=== PATIENT | female | born 1935 | race Caucasian/White ===

== ENCOUNTER 2017-05-19 12:23 | Inpatient (IN) | payer MEDICARE, OTHER ==
[~2017-05-19] VITALS: Ht 165.1 cm; Wt 93.6 kg
[2017-05-19] MEDS ORDERED: DILTIAZEM HCL 5 MG/ML 5 ML VIAL IV STA (12:43)
[2017-05-19] MEDS ORDERED: DILTIAZEM HCL 100 ML IV ONE (12:45)
--- NOTE | 2017-05-19 13:28 | Diagnostic Imaging Report ---
PROCEDURE: CHEST SINGLE (PORTABLE) COMPARISON: None. INDICATIONS: SOB, CHEST PAINS FINDINGS: The lungs are well-inflated. No focal airspace consolidation, pleural effusion, or pneumothorax. Cardiomediastinal contour and pulmonary vasculature are within normal limits accounting for rightward patient rotation and portable, AP technique. No acute osseous abnormality. CONCLUSION: No acute cardiopulmonary abnormality. Dictated by: Clement Giles M.D. on 05/19/2017 at 13:29 Electronically approved by: Clement Giles M.D. on 05/19/2017 at 13:29
[2017-05-19] MEDS: APIXABAN 5 MG TABLET PO SCH (13:30)
[2017-05-19 13:42] LABS: BASOPHILS # (AUTO) 0.1 (0.0-0.1); BASOPHILS % 0.7 % (0.0-1.0); EOSINOPHILS # (AUTO) 0.8 (0.0-0.4); EOSINOPHILS % 4.6 % (0.0-6.0); HEMOGLOBIN 10.3 g/dL (12.0-16.0); LYMPHOCYTES # (AUTO) 4.1 (1.0-3.2); LYMPHOCYTES % 24.1 % (18.0-39.1); MEAN CORPUSCULAR HEMOGLOBIN 25.8 pg (28-32); MEAN CORPUSCULAR HGB CONC 32.2 g/dL (31-35); MEAN CORPUSCULAR VOLUME 80.2 fL (81-99); MONOCYTES # (AUTO) 1.7 (0.2-0.8); MONOCYTES % 9.8 % (4.4-11.3); NEUTROPHILS # (AUTO) 10.2 (2.1-6.9); NEUTROPHILS % 59.8 % (38.7-80.0); PLATELET COUNT 458 x10e3/uL (140-360); RED BLOOD COUNT 3.99 x10e6/uL (3.6-5.1); RED CELL DISTRIBUTION WIDTH 14.2 % (11.7-14.4)
[2017-05-19 13:53] LABS: INR 1.08; PROTHROMBIN TIME 13.2 seconds (11.9-14.5)
[2017-05-19 13:54] LABS: PARTIAL THROMBOPLASTIN TIME 25.7 seconds (23.8-35.5)
[2017-05-19] MEDS ORDERED: DILTIAZEM HCL IV SOLN 125 MG in DEXTROSE 5% 100ML 100 ML IV PRN (14:00)
[2017-05-19 14:01] LABS: ALBUMIN 3.6 g/dL (3.5-5.0); ANION GAP 16.1 mmol/L (8-16); CALCIUM 9.7 mg/dL (8.4-10.2); CREATININE, SERUM 0.91 mg/dL (0.57-1.11); MAGNESIUM 1.5 MG/DL (1.3-2.1); PHOSPHORUS 3.5 MG/DL (2.3-4.7); POTASSIUM 4.1 mmol/L (3.5-5.1)
[2017-05-19 14:06] LABS: CHOL/HDL RATIO 3.8 (3.0-3.6)
[2017-05-19] MEDS ORDERED: AMLODIPINE BESY10 MG PO (14:19)
[2017-05-19] MEDS ORDERED: NOVOLOG100 UNIT/1 SC (14:19)
[2017-05-19] MEDS ORDERED: BUPROPION HCL100 MG PO (14:19)
[2017-05-19] MEDS ORDERED: LEVOTHYROXINE75 MCG PO (14:19)
[2017-05-19] MEDS ORDERED: TERAZOSIN HCL1 MG PO (14:19)
[2017-05-19] MEDS ORDERED: HYDRALAZINE HCL25 MG PO (14:19)
[2017-05-19] MEDS ORDERED: FISH OIL 1,0001 EAC2 (14:19)
[2017-05-19] MEDS ORDERED: SERTRALINE HCL50 MG PO (14:19)
[2017-05-19] MEDS ORDERED: INDAPAMIDE1.25 MG PO (14:19)
[2017-05-19] MEDS ORDERED: ZEGERID 20 MG1 EACH (14:19)
[2017-05-19] MEDS ORDERED: INSULIN GLARGINE SC (14:19)
[2017-05-19] MEDS ORDERED: MECLIZINE HCL12.5 MG PO (14:19)
[2017-05-19] MEDS ORDERED: PRAVASTATIN SOD20 MG PO (14:19)
[2017-05-19] MEDS ORDERED: JANUVIA100 MG PO (14:19)
[2017-05-19] MEDS ORDERED: LISINOPRIL10 MG PO (14:19)
[2017-05-19 14:26] LABS: THYROID STIMULATING HORMONE 6.656 uIU/mL (0.350-4.940)
[2017-05-19] MEDS ORDERED: DILTIAZEM HCL 5 MG/ML 5 ML VIAL IV ONE (14:47)
[2017-05-19] MEDS ORDERED: AMIODARONE HCL 150MG 100 ML IV ONE (15:00)
[2017-05-19] MEDS: DILTIAZEM HCL ER 90MG CAPSULE PO SCH (15:05)
--- OUTSIDE RECORDS SUMMARY | 2017-05-19 15:07 | XMS REPORT ---
Author Author [facility] Address Unknown Phone Unavailable Care Team Providers Care Digital Media Representative Name Role Phone SOPHIA MIMS Unavailable Unavailable Problems This patient has no known problems. Allergies, Adverse Reactions, Alerts This patient has no known allergies or adverse reactions. Medications This patient has no known medications. Results Test Description Test Time Test Comments Text Results Atomic Results Result Comments CHEST SINGLE (PORTABLE) [place] [address] Patient Name: BREANNE BRIONES MR #: [id number] : 1935 Age/Sex: 82/F Req #: [id number] Adm Physician: Ordered by: SOPHIA MIMS MD Report #: [id number] Location: ER Room/Bed: Procedure: [id number] DX/CHEST SINGLE (PORTABLE) Exam Date: 05/19/17 Exam Time: 1309 REPORT STATUS: Signed PROCEDURE: CHEST SINGLE ( PORTABLE) COMPARISON: None. INDICATIONS: SOB, CHEST PAINS FINDINGS: The lungs are well-inflated. No focal airspace consolidation, pleural effusion, or pneumothorax. Cardiomediastinal contour and pulmonary vasculature are within normal limits accounting for rightward patient rotation and portable, AP technique. No acute osseous abnormality. CONCLUSION: No acute cardiopulmonary abnormality. Dictated by: David Giles M.D. on 05/19/2017 at 13:29 Electronically approved by: David Giles M.D. on 05/19/2017 at 13:29 Dictated By: DAVID GILES MD [id number] Transcribed By: DARÍO on 05/19/17 1329 COPY TO: SOPHIA MIMS MD
[2017-05-19 15:55] LABS: BILIRUBIN,URINE NEGATIVE (NEGATIVE); CLARITY,URINE CLEAR (CLEAR); COLOR,URINE YELLOW (YELLOW); KETONES,URINE NEGATIVE (NEGATIVE); LEUKOCYTE ESTERASE ,URINE TRACE (NEGATIVE); NITRITE,URINE NEGATIVE (NEGATIVE); PROTEIN,URINE DIPSTICK 1+ (NEGATIVE); URINE UROBILINOGEN 0.2 mg/dL (0.2 - 1)
[2017-05-19 16:05] LABS: WBC,URINE (MAN) 0-5 /HPF (0-5)
[2017-05-19 16:06] LABS: AMORPHOUS SEDIMENT,URINE MODERATE (FEW); BACTERIA,URINE MODERATE /HPF; EPITHELIAL CELLS,URINE MANY /LPF
[2017-05-19 16:30] VITALS: BP 186/92
[2017-05-19 16:37] VITALS: BP 186/92
[2017-05-19] MEDS ORDERED: INDAPAMIDE 1.25 MG PO SCH (17:00)
[2017-05-19] MEDS ORDERED: APIXAB 2.5 MG TABLET PO SCH (17:00)
[2017-05-19] MEDS: HYDRALAZINE HCL 25 MG TAB PO SCH (18:24)
[2017-05-19] MEDS ORDERED: AMIODARONE HCL 150 MG/100 ML BAG IV ONE (18:45)
[2017-05-19] MEDS ORDERED: AMIODARONE HCL 200 MG TAB PO ONE (18:45)
[2017-05-19] MEDS ORDERED: AMIODARONE HCL IV ONE (19:30)
[2017-05-19] MEDS ORDERED: DEXTROSE 5% IV ONE (19:30)
[2017-05-19 20:00] VITALS: BP_SYST 136; BP_SYST 165; BP_DIAS 72; BP_DIAS 91
--- NOTE | 2017-05-19 20:38 | Consultation ---
DATE OF CONSULTATION: May 19, 2017 CLINICAL HISTORY: This is an 82-year-old white woman known to me from previous evaluation kindly referred by Dr. Owen Salazar for evaluation of new onset of rapid atrial fibrillation. This patient is known to have diabetes, hypertension, hypothyroidism on thyroid replacement, chronic anemia with iron deficiency and iron malabsorption receiving intravenous iron for the past 7-[address] Collazo, history of hiatal hernia. On Tuesday, she went to Dr. Collazo's office and received intravenous iron. She had no side effects. However, on Tuesday morning she awoke with palpitations. She went to see Dr. Salazar today and was found to have rapid atrial fibrillation and was referred to the emergency room for hospitalization. PAST MEDICAL HISTORY: Also remarkable for neuropathy, depression, urinary tract infection. PAST SURGICAL HISTORY: Hysterectomy, appendectomy, tonsillectomy, tubal ligation and left arm surgery. Last year she apparently had a cardiac catheterization that was negative. She also had a cardiac catheterization in 2002 that was negative. FAMILY HISTORY: Father had a stroke and hypoglycemia. The patient had CVA at age 87. PERSONAL/SOCIAL HISTORY: Denies smoking or drinking. ALLERGIES: CODEINE. REVIEW OF SYSTEMS: Noncontributory. PHYSICAL EXAMINATION GENERAL: She is somewhat obese, alert, coherent. She appears to be comfortable. CARDIAC: Jugular veins were not distended. S1 and S2 were irregularly irregular, somewhat rapid. LUNGS: Clear. ABDOMEN: Soft. Bowel sounds are present. EXTREMITIES: No cyanosis, clubbing or edema. IMPRESSION 1. New onset of atrial fibrillation, probably started 36 hours ago with left atrium being somewhat enlarged in the range of 6.4 cm with no clear cause of the atrial fibrillation. 2. History of hypothyroidism on thyroid replacement. 3. Hypertension, sometimes not under good control. 4. Enlarged left atrium. 5. Diabetes. 6. Hyperlipidemia. 7. History of depression. 8. Peripheral vascular disease. 9. Hiatal hernia. 10. Chronic anemia with history of malabsorption and iron deficiency on intravenous iron for 6 years. RECOMMENDATIONS: Deb zamora, opinion with Dr. Collazo. If there is no evidence of bleeding, consider anticoagulation. Trial of amiodarone. If this does not work, consider electrical cardioversion. Risks, benefits and alternatives of these treatments were explained and understood. The patient and family agreed to proceed. Job#: [id number] cc:OWEN SALAZAR MD
--- NOTE | 2017-05-19 20:41 | Cardiology Report ---
DATE OF STUDY: May 19, 2017 ECHOCARDIOGRAM M-MODE: Dilated left atrium. Left ventricular hypertrophy. Normal contractility. Sclerosis of the mitral valve annulus. Normal aortic valve. No pericardial effusion. SECTOR SCAN: Dilated left atrium measuring approximately 6 x 4 cm. Left ventricular hypertrophy. Normal left ventricular contractility. Ejection fraction is approximately 55%. Mitral valve annulus is sclerotic. Normal aortic valve. Normal tricuspid valve. No pericardial effusion. CARDIAC DOPPLER STUDY WITH COLOR: 1+ mitral regurgitation. Trace tricuspid regurgitation. CONCLUSIONS: 1. Left atrium and moderately dilated measuring approximately 6 x 4 cm. 2. Left ventricular hypertrophy with ejection fraction of approximately 55%. 3. Trace mitral regurgitation. 4. Sclerosis of mitral valve annulus. 5. Trace tricuspid regurgitation. Job#: [id number] cc:QIAN SALAZAR MD
[2017-05-19] MEDS: SODIUM CHLORIDE 0.9% 1000ML 1,000 ML IV SCH (20:56)
[2017-05-19] MEDS: PRAVASTATIN 20 MG TAB PO SCH (22:20)
[2017-05-20] VITALS (14 sets, daily range): BP systolic 82–161; BP diastolic 42–89
[2017-05-20] MEDS ORDERED: ZOLPIDEM TARTRATE 5 MG TAB PO PRN (00:15)
[2017-05-20] MEDS: LEVOTHYROXINE SODIUM 75 MCG TAB PO SCH (06:00)
[2017-05-20] MEDS: LEVOTHYROXINE SODIUM 100 MCG TAB PO SCH (06:00)
[2017-05-20 06:20] LABS: BASOPHILS # (AUTO) 0.1 (0.0-0.1); BASOPHILS % 0.7 % (0.0-1.0); EOSINOPHILS # (AUTO) 0.7 (0.0-0.4); EOSINOPHILS % 4.8 % (0.0-6.0); HEMATOCRIT 31.6 % (34.2-44.1); HEMOGLOBIN 9.9 g/dL (12.0-16.0); LYMPHOCYTES # (AUTO) 3.4 (1.0-3.2); LYMPHOCYTES % 25.4 % (18.0-39.1); MEAN CORPUSCULAR HEMOGLOBIN 25.5 pg (28-32); MEAN CORPUSCULAR HGB CONC 31.3 g/dL (31-35); MEAN CORPUSCULAR VOLUME 81.4 fL (81-99); MONOCYTES # (AUTO) 1.5 (0.2-0.8); NEUTROPHILS # (AUTO) 7.7 (2.1-6.9); NEUTROPHILS % 57.1 % (38.7-80.0); PLATELET COUNT 417 x10e3/uL (140-360); RED BLOOD COUNT 3.88 x10e6/uL (3.6-5.1); RED CELL DISTRIBUTION WIDTH 14.2 % (11.7-14.4)
[2017-05-20 06:43] LABS: ANION GAP 11.1 mmol/L (8-16); BLOOD UREA NITROGEN 26 mg/dL (7-26); BUN/CREATININE RATIO 31 (6-25); CALCIUM 9.1 mg/dL (8.4-10.2); CARBON DIOXIDE 26 mmol/L (22-29); CHLORIDE 104 mmol/L (98-107); CREATININE, SERUM 0.85 mg/dL (0.57-1.11); EST GLOMERULAR FILTRATION RATE > 60 ML/MIN (60-); GLUCOSE 131 mg/dL (74-118); POTASSIUM 4.1 mmol/L (3.5-5.1); SODIUM 137 mmol/L (136-145)
[2017-05-20] MEDS: PANTOPRAZOLE SOD 40 MG TABEC PO SCH (07:30)
[2017-05-20] MEDS: BUPROPION HCL 100 MG TAB PO SCH ×2 (07:31→16:59)
[2017-05-20 07:42] LABS: INR 1.17; PARTIAL THROMBOPLASTIN TIME 28.6 seconds (23.8-35.5)
[2017-05-20 07:54] LABS: MAGNESIUM 1.3 MG/DL (1.3-2.1)
[2017-05-20 08:10] LABS: THYROID STIMULATING HORMONE 8.279 uIU/mL (0.350-4.940)
[2017-05-20] MEDS: TERAZOSIN HCL 1 MG CAP PO SCH (08:58)
[2017-05-20] MEDS: HYDRALAZINE HCL 25 MG TAB PO SCH ×2 (08:58→15:01)
[2017-05-20] MEDS: DILTIAZEM HCL ER 90MG CAPSULE PO SCH ×2 (08:58→16:59)
[2017-05-20] MEDS: LISINOPRIL 10 MG TAB PO SCH (08:58)
[2017-05-20] MEDS: SITAGLIPTIN 100 MG TAB PO SCH (08:59)
[2017-05-20] MEDS: SERTRALINE HCL 50 MG TAB PO SCH (08:59)
[2017-05-20] MEDS ORDERED: AMLODIPINE BESYLATE 10 MG TAB PO SCH (09:00)
[2017-05-20] MEDS ORDERED: INDAPAMIDE 2.5 MG TAB PO SCH (09:00)
[2017-05-20] MEDS ORDERED: INSULIN DETEMIR 100 UNIT/ML PEN SQ SCH (09:00)
[2017-05-20] MEDS ORDERED: INSULIN GLARGINE SC SCH (09:00)
[2017-05-20] MEDS ORDERED: BENZOCAINE 20% SPR 60 ML CAN ONE (09:54)
[2017-05-20] MEDS ORDERED: SODIUM CHLORIDE 0.9% 1000ML 1,000 ML ONE (09:56)
--- NOTE | 2017-05-20 14:19 | Diagnostic Imaging Report ---
PROCEDURE:X-RAY LEFT SHOULDER, COMPLETE COMPARISON:Patients [facility], DX, CHEST SINGLE (PORTABLE), 05/19/2017, 13:18. INDICATIONS:LEFT SHOULDER PAIN FINDINGS: Normal mineralization. No acute displaced fracture or dislocation. No lytic or blastic lesion. Ill-defined 1.0 cm triangular-shaped density projecting medial to the glenoid in the scapula. Minimal degenerative changes in the a.c. joint. No a.c. separation. Glenohumeral joint is grossly unremarkable. Soft tissues are unremarkable. CONCLUSION: No acute, displaced fracture or dislocation. Ill-defined triangular-shaped density projected medial to the glenoid over the scapula may be external to the patient or represent ligamentous calcification. MRI of the shoulder may be obtained for further evaluation, if clinically indicated. Ciaran Brown M.D. Dictated by: Ciaran Brown M.D. on 05/20/2017 at 14:19 Electronically approved by: Ciaran Brown M.D. on 05/20/2017 at 14:19
[2017-05-20] MEDS: AMIODARONE HCL 200 MG TAB PO SCH ×2 (14:25→21:13)
[2017-05-20] MEDS: SODIUM CHLORIDE 0.9% 1000ML 1,000 ML IV SCH (15:01)
--- NOTE | 2017-05-20 16:05 | Operative Report ---
DATE OF PROCEDURE: TRANSESOPHAGEAL ECHOCARDIOGRAM FOLLOWED BY ELECTRICAL CARDIOVERSION ATTENDING PHYSICIAN: Owen Salazar M.D. CLINICAL HISTORY AND INDICATION: This is an 82-year-old white woman who presented within 48 hours of complaints of palpitations. EKG showed new atrial fibrillation with rapid ventricular rate. The rate was decreased by intravenous Cardizem and the patient was given Eliquis in the emergency room. After overnight failure to convert with intravenous amiodarone, we decided to proceed with electrical cardioversion after transesophageal echocardiogram. Risks, benefits, and alternatives being explained and understood. PROCEDURE: The patient was brought to the endoscopy suite in a fasting and sedated state. She was unable to initially swallow the transducer. However, after we sedated her we were able to pass the transducer without much difficulties. No definite left appendageal thrombus was found nor was there any thrombus found elsewhere. She did have a small PFO with [id number] shunt. There was 1+ mitral regurgitation and dilated left atrium. The scope was then removed. The patient was then converted using 200 joules synchronized cardioversion. She remained in sinus rhythm and was taken to a room. CONCLUSIONS: 1. Successful electrical synchronized cardioversion converting to sinus rhythm with 200 joules. 2. Dilated left atrium without any thrombus including the left atrial appendage. 3. Small PFO with [id number] shunt. 4. Mild mitral regurgitation. Job#: [id number] cc:OWEN SALAZAR MD
[2017-05-20] MEDS ORDERED: LIDOCAINE HCL 2% LOCAL INJ 5 ML SDV VIAL INJ ONE (17:45)
[2017-05-20] MEDS ORDERED: PROPOFOL IV EMULSION 10 MG/ML 20 ML VIAL ONE (17:45)
[2017-05-20] MEDS ORDERED: TRAMADOL HCL 50 MG TAB PO PRN (19:15)
[2017-05-20] MEDS ORDERED: ACETAMINOPHEN 325 MG TAB PO PRN (19:45)
[2017-05-20] MEDS: PRAVASTATIN 20 MG TAB PO SCH (21:12)
[2017-05-20] MEDS: INSULIN DETEMIR 100 UNIT/ML PEN SQ SCH (21:13)
[2017-05-21 00:23] VITALS: BP 158/69
[2017-05-21 04:41] VITALS: BP 165/68
[2017-05-21] MEDS: LEVOTHYROXINE SODIUM 75 MCG TAB PO SCH (06:30)
[2017-05-21] MEDS: LEVOTHYROXINE SODIUM 100 MCG TAB PO SCH (06:30)
[2017-05-21] MEDS: AMIODARONE HCL 200 MG TAB PO SCH ×2 (06:30→14:50)
[2017-05-21] MEDS: PANTOPRAZOLE SOD 40 MG TABEC PO SCH (08:00)
[2017-05-21 08:13] VITALS: BP 169/71
[2017-05-21] MEDS: HYDRALAZINE HCL 25 MG TAB PO SCH (08:16)
[2017-05-21] MEDS: INSULIN DETEMIR 100 UNIT/ML PEN SQ SCH (08:17)
[2017-05-21] MEDS: DILTIAZEM HCL ER 90MG CAPSULE PO SCH (08:17)
[2017-05-21] MEDS: TERAZOSIN HCL 1 MG CAP PO SCH (08:17)
[2017-05-21] MEDS: SITAGLIPTIN 100 MG TAB PO SCH (08:17)
[2017-05-21] MEDS: APIXABAN 5 MG TABLET PO SCH (08:17)
[2017-05-21] MEDS: SERTRALINE HCL 50 MG TAB PO SCH (08:17)
[2017-05-21] MEDS: LISINOPRIL 10 MG TAB PO SCH (08:17)
[2017-05-21] MEDS: BUPROPION HCL 100 MG TAB PO SCH (08:17)
[2017-05-21] MEDS: SODIUM CHLORIDE 0.9% 1000ML 1,000 ML IV SCH (08:52)
[2017-05-21 09:15] VITALS: BP 169/71
[2017-05-21 12:00] VITALS: BP 153/69
== END 2017-05-21 15:49 | disposition home or self-care (01) | DRG 309 ==
LOC: ER 12:31 → ERHOLD 15:04 → EDBEDREQTM 15:06 → MED/SURG3 15:56 → IMCU 20:13
PROVIDERS: ADMIT Internal Medicine; ATTEND Internal Medicine
PROC: 5A2204Z Restoration of Cardiac Rhythm, Single (ICD-10-PCS; principal; 2017-05-20)
DX: I48.91 Unspecified atrial fibrillation (principal); Q21.1 Atrial septal defect; D64.9 Anemia, unspecified; E11.9 Type 2 diabetes mellitus without complications; E03.9 Hypothyroidism, unspecified; I10 Essential (primary) hypertension; Z79.4 Long term (current) use of insulin; T45.4X1A Poisoning by iron and its compounds, accidental (unintentional), initial encounter; I73.9 Peripheral vascular disease, unspecified
CPT/HCPCS: 36415; 71045; 80048; 80053; 80061; 81001; 82948; 83540; 83735; 83880; 84100; 84436; 84443; 84466; 84479; 84484; 85025; 85045; 85610; 85730; 87040; 93005; 93306; 93320; 93325; 96372; 99284; J2001; J7030

== ENCOUNTER 2017-08-09 09:10 | Inpatient (IN) | payer MEDICARE, OTHER ==
[~2017-08-09] VITALS: Ht 165.1 cm; Wt 88.0 kg
[~2017-08-09 09:10] MED LIST: AMLODIPINE BESY10 MG PO; BUPROPION HCL100 MG PO; FISH OIL 1,0001 EAC2; HYDRALAZINE HCL25 MG PO; INDAPAMIDE1.25 MG PO; INSULIN GLARGINE SC; JANUVIA100 MG PO; LEVOTHYROXINE75 MCG PO; LISINOPRIL10 MG PO; MECLIZINE HCL12.5 MG PO; NOVOLOG100 UNIT/1 SC; PRAVASTATIN SOD20 MG PO; SERTRALINE HCL50 MG PO; TERAZOSIN HCL1 MG PO; ZEGERID 20 MG1 EACH
[2017-08-09] MEDS ORDERED: ASPIRIN 81 MG CHEW TAB PO STA (09:32)
[2017-08-09] MEDS ORDERED: ASPIRIN 81 MG CHEW TAB PO ONE (09:45)
--- NOTE | 2017-08-09 10:21 | Diagnostic Imaging Report ---
PROCEDURE: CHEST SINGLE (PORTABLE) COMPARISON: 05/19/2017. INDICATIONS: DEHYDRATION, NAUSEA FINDINGS: The lungs are well-inflated. No focal airspace consolidation, pleural effusion, or pneumothorax. Cardiomediastinal contour is notable for tortuosity of the thoracic aorta with associated atherosclerotic calcification. Heart size is normal for portable, AP technique. No acute osseous abnormality. CONCLUSION: No acute cardiopulmonary abnormality. Dictated by: Clement Giles M.D. on 08/09/2017 at 10:25 Electronically approved by: Clement Giles M.D. on 08/09/2017 at 10:25
[2017-08-09 10:58] LABS: BASOPHILS # (AUTO) 0.1 (0.0-0.1); BASOPHILS % 0.6 % (0.0-1.0); EOSINOPHILS # (AUTO) 0.3 (0.0-0.4); EOSINOPHILS % 1.6 % (0.0-6.0); HEMATOCRIT 41.6 % (34.2-44.1); HEMOGLOBIN 13.1 g/dL (12.0-16.0); LYMPHOCYTES # (AUTO) 1.8 (1.0-3.2); LYMPHOCYTES % 10.6 % (18.0-39.1); MEAN CORPUSCULAR HEMOGLOBIN 25.4 pg (28-32); MEAN CORPUSCULAR HGB CONC 31.5 g/dL (31-35); MEAN CORPUSCULAR VOLUME 80.8 fL (81-99); MONOCYTES # (AUTO) 1.6 (0.2-0.8); MONOCYTES % 9.5 % (4.4-11.3); NEUTROPHILS # (AUTO) 13.3 (2.1-6.9); NEUTROPHILS % 76.9 % (38.7-80.0); PLATELET COUNT 439 x10e3/uL (140-360); RED BLOOD COUNT 5.15 x10e6/uL (3.6-5.1); RED CELL DISTRIBUTION WIDTH 16.1 % (11.7-14.4)
[2017-08-09 11:21] LABS: ALBUMIN 3.2 g/dL (3.5-5.0); ALBUMIN/GLOBULIN RATIO 0.8 (0.8-2.0); ANION GAP 16.1 mmol/L (8-16); CALCIUM 9.7 mg/dL (8.4-10.2); CREATININE, SERUM 1.16 mg/dL (0.57-1.11); POTASSIUM 4.1 mmol/L (3.5-5.1)
[2017-08-09 11:27] LABS: CREATINE KINASE MB 1.8 ng/mL (0-5.0)
[2017-08-09 12:00] LABS: INR 1.55; PARTIAL THROMBOPLASTIN TIME 33.8 seconds (23.8-35.5); PROTHROMBIN TIME 17.5 seconds (11.9-14.5)
[2017-08-09 12:11] LABS: BILIRUBIN,URINE 1+ (NEGATIVE); CLARITY,URINE SL CLOUDY (CLEAR); COLOR,URINE YELLOW (YELLOW); KETONES,URINE NEGATIVE (NEGATIVE); LEUKOCYTE ESTERASE ,URINE NEGATIVE (NEGATIVE); NITRITE,URINE NEGATIVE (NEGATIVE); PROTEIN,URINE DIPSTICK 1+ (NEGATIVE); URINE UROBILINOGEN 1 mg/dL (0.2 - 1)
[2017-08-09 12:14] LABS: WBC,URINE (MAN) 0-5 /HPF (0-5)
[2017-08-09 12:15] LABS: EPITHELIAL CELLS,URINE FEW /LPF; MUCUS,URINE RARE (RARE)
--- NOTE | 2017-08-09 12:37 | Diagnostic Imaging Report ---
PROCEDURE: CT ABDOMEN AND PELVIS WITHOUT CONTRAST TECHNIQUE: The abdomen and pelvis were scanned utilizing a multidetector helical scanner from the diaphragm to the lesser trochanter after the oral administration of water. No IV contrast was administered per physician's request. Coronal and sagittal multiplanar reformations were obtained. COMPARISON: None. INDICATIONS: LEFT SIDE ABDOMINAL PAIN, FINDINGS: ABSENCE OF INTRAVENOUS CONTRAST DECREASES SENSITIVITY FOR DETECTION OF FOCAL LESIONS AND VASCULAR PATHOLOGY. LOWER THORAX: Multiple bilateral noncalcified pulmonary nodules ranging in size from 2 mm-7 mm are noted in the lung bases. No consolidation or masses. Atherosclerotic calcification of the coronary arteries, mitral annulus and thoracic aorta. Calcified bilateral hilar lymph nodes. Calcified granulomas along the bronchovascular bundle of the posteromedial right lower lobe (series 3, image 6). HEPATOBILIARY: Normal hepatic size and contour. Multiple calcified granulomas. No other focal lesions. No biliary ductal dilation. Cholecystectomy clips. SPLEEN: No splenomegaly. Innumerable calcified granulomas. PANCREAS: No focal masses or ductal dilatation. ADRENALS: 1.1 x 1.0 x 1.1 cm hypodense nodule in the left adrenal gland (series 3, image 50, and sagittal image 83), which measures less than 10 HU. Right adrenal gland is unremarkable. KIDNEYS/URETERS: No renal or ureteral calculi, hydronephrosis, or obstruction. No renal contour abnormalities. Mild nonspecific bilateral perinephric stranding. PELVIC ORGANS/BLADDER: Bladder is decompressed and grossly unremarkable. Uterus is absent. No adnexal masses. PERITONEUM / RETROPERITONEUM: No free air or fluid. 3.8 x 3.3 x 3.5 cm well-circumscribed fluid density structure with associated dystrophic calcification in its superior aspect (series 3, image 129 and sagittal image 48), located anterior to the right psoas muscle. LYMPH NODES: No lymphadenopathy. VESSELS: Atherosclerotic calcification of the abdominal aorta and iliac vessels. Multiple phleboliths are noted along the right gonadal vein (coronal image 57).. GI TRACT: No bowel dilation or evidence of obstruction. Scattered diverticula in the distal descending and sigmoid colon, without diverticulitis. No pericolonic inflammatory changes. BONES AND SOFT TISSUES: No aggressive lytic lesions. Degenerative disc changes in the lumbosacral spine, predominantly L5-S1 and L4-L5. Facet hypertrophy L4-L5 and L5-S1.. 4.2 x 7.9 x 6.0 cm and 2.3 x 1.6 x 2.8 cm fat containing supraumbilical anterior midline abdominal wall hernias (series 3, image 70 and 122, and sagittal image 74 and 80, respectively). IMPRESSION: 1. No acute abdominopelvic abnormalities. No renal, ureteral, or bladder calculi, no hydronephrosis or obstruction. 2. Prior granulomatous disease, manifested by calcified bilateral hilar lymph nodes, and calcified pulmonary, hepatic and splenic granulomas. 3. Multiple bilateral noncalcified pulmonary nodules. These may represent noncalcified granulomas, given the extent of sequela of prior granulomatous disease. No evidence of intra-abdominal solid organ or bowel masses, within the limitations of this noncontrast exam. 4. 1.1 cm benign lipid rich left adrenal adenoma. No further diagnostic or followup imaging is indicated. 5. Distal descending and sigmoid colon diverticulosis, without diverticulitis. 6. 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 Ciaran Brown M.D. Dictated by: Ciaran Brown M.D. on 08/09/2017 at 12:40 Electronically approved by: Ciaran Brown M.D. on 08/09/2017 at 12:40
[2017-08-09 14:16] LABS: LYMPHOCYTES % (MANUAL) 18 % (19-48); MONOCYTES % (MANUAL) 8 % (3.4-9.0); NEUTROPHILS % (MANUAL) 74 % (40-74)
[2017-08-09 14:17] LABS: PLATELET ESTIMATE ADEQUATE
[2017-08-09 14:18] LABS: ANISOCYTOSIS SLIGHT; HYPOCHROMASIA SLIGHT; PLATELET MORPHOLOGY COMMENT NORMAL; RBC MORPHOLOGY COMMENT NORMAL
[2017-08-09] MEDS ORDERED: AMIODARONE HCL200 MG PO (15:12)
[2017-08-09] MEDS ORDERED: DIGOXIN250 MCG PO (15:12)
[2017-08-09 15:30] VITALS: BP 166/75
[2017-08-09] MEDS: SODIUM CHLORIDE 0.9% 1000ML 1,000 ML IV SCH (15:30)
[2017-08-09 15:38] VITALS: BP 166/75
[2017-08-09 16:00] VITALS: BP 166/75
[2017-08-09] MEDS ORDERED: OMEPRAZOLE40 MG (16:02)
[2017-08-09] MEDS ORDERED: VITAMIN D3400 UNIT (16:02)
[2017-08-09] MEDS ORDERED: METOPROLOL SUCC50 MG PO (16:02)
[2017-08-09] MEDS: METRONIDAZOLE 500MG/NS 100ML 100 ML IV SCH ×2 (18:00→23:48)
[2017-08-09] MEDS ORDERED: METRONIDAZOLE 500MG/NS 100ML IV SCH (18:00)
[2017-08-09 20:00] VITALS: BP 166/75
[2017-08-09 20:25] VITALS: BP 177/66
[2017-08-09] MEDS: ACETAMINOPHEN 325 MG TAB PO PRN (21:52)
[2017-08-09] MEDS: METOPROLOL SUCCINATE 50 MG TAB XL PO SCH (21:52)
[2017-08-10] VITALS (7 sets, daily range): BP systolic 157–196; BP diastolic 47–95
[2017-08-10] MEDS: SODIUM CHLORIDE 0.9% 1000ML 1,000 ML IV SCH ×2 (03:17→17:30)
[2017-08-10] MEDS: METRONIDAZOLE 500MG/NS 100ML 100 ML IV SCH ×4 (05:27→23:33)
[2017-08-10 06:33] LABS: BASOPHILS # (AUTO) 0.1 (0.0-0.1); BASOPHILS % 0.6 % (0.0-1.0); EOSINOPHILS # (AUTO) 0.2 (0.0-0.4); EOSINOPHILS % 1.5 % (0.0-6.0); HEMATOCRIT 37.9 % (34.2-44.1); HEMOGLOBIN 11.8 g/dL (12.0-16.0); LYMPHOCYTES # (AUTO) 1.9 (1.0-3.2); LYMPHOCYTES % 14.8 % (18.0-39.1); MEAN CORPUSCULAR HEMOGLOBIN 25.4 pg (28-32); MEAN CORPUSCULAR HGB CONC 31.1 g/dL (31-35); MEAN CORPUSCULAR VOLUME 81.5 fL (81-99); MONOCYTES # (AUTO) 1.8 (0.2-0.8); NEUTROPHILS # (AUTO) 8.7 (2.1-6.9); NEUTROPHILS % 68.5 % (38.7-80.0); PLATELET COUNT 337 x10e3/uL (140-360); RED BLOOD COUNT 4.65 x10e6/uL (3.6-5.1); RED CELL DISTRIBUTION WIDTH 16.4 % (11.7-14.4)
[2017-08-10 06:53] LABS: ALBUMIN 2.7 g/dL (3.5-5.0); ALBUMIN/GLOBULIN RATIO 0.7 (0.8-2.0); ANION GAP 15.9 mmol/L (8-16); CALCIUM 8.9 mg/dL (8.4-10.2); CREATININE, SERUM 1.16 mg/dL (0.57-1.11); POTASSIUM 3.9 mmol/L (3.5-5.1)
[2017-08-10 08:19] LABS: BAND NEUTROPHILS % (MANUAL) 1 %; EOSINOPHILS % (MANUAL) 1 % (0-7); LYMPHOCYTES % (MANUAL) 12 % (19-48); MONOCYTES % (MANUAL) 14 % (3.4-9.0); NEUTROPHILS % (MANUAL) 67 % (40-74)
[2017-08-10 08:20] LABS: ANISOCYTOSIS SLIGHT; HYPOCHROMASIA SLIGHT; PLATELET ESTIMATE ADEQUATE; PLATELET MORPHOLOGY COMMENT NORMAL; POIKILOCYTOSIS SLIGHT; RBC MORPHOLOGY COMMENT NORMAL
[2017-08-10] MEDS: METOPROLOL SUCCINATE 50 MG TAB XL PO SCH ×2 (08:58→17:32)
[2017-08-10] MEDS ORDERED: PROMETHAZINE 12.5MG/ NACL 0.9% 12.5 MG/50 ML BAG IV PRN (11:15)
[2017-08-10] MEDS: APIXABAN 5 MG TABLET PO SCH (17:33)
[2017-08-10] MEDS: ACETAMINOPHEN 325 MG TAB PO PRN (22:04)
[2017-08-11] VITALS (9 sets, daily range): BP systolic 157–181; BP diastolic 64–80
[2017-08-11] MEDS: SODIUM CHLORIDE 0.9% 1000ML 1,000 ML IV SCH ×2 (06:03→20:31)
[2017-08-11] MEDS: LEVOTHYROXINE SODIUM 100 MCG TAB PO SCH (06:03)
[2017-08-11] MEDS: METRONIDAZOLE 500MG/NS 100ML 100 ML IV SCH ×3 (06:03→18:01)
[2017-08-11] MEDS: LEVOTHYROXINE SODIUM 75 MCG TAB PO SCH (06:03)
[2017-08-11 06:41] LABS: BASOPHILS # (AUTO) 0.1 (0.0-0.1); BASOPHILS % 0.5 % (0.0-1.0); EOSINOPHILS # (AUTO) 0.4 (0.0-0.4); EOSINOPHILS % 2.7 % (0.0-6.0); HEMATOCRIT 37.9 % (34.2-44.1); HEMOGLOBIN 11.7 g/dL (12.0-16.0); LYMPHOCYTES # (AUTO) 2.1 (1.0-3.2); MEAN CORPUSCULAR HEMOGLOBIN 25.3 pg (28-32); MEAN CORPUSCULAR HGB CONC 30.9 g/dL (31-35); MONOCYTES # (AUTO) 1.6 (0.2-0.8); MONOCYTES % 11.4 % (4.4-11.3); NEUTROPHILS # (AUTO) 9.6 (2.1-6.9); NEUTROPHILS % 69.5 % (38.7-80.0); PLATELET COUNT 369 x10e3/uL (140-360); RED BLOOD COUNT 4.62 x10e6/uL (3.6-5.1); RED CELL DISTRIBUTION WIDTH 16.5 % (11.7-14.4)
[2017-08-11 06:54] LABS: ANION GAP 14.7 mmol/L (8-16); BLOOD UREA NITROGEN 15 mg/dL (7-26); BUN/CREATININE RATIO 17 (6-25); CALCIUM 9.2 mg/dL (8.4-10.2); CARBON DIOXIDE 28 mmol/L (22-29); CHLORIDE 100 mmol/L (98-107); CREATININE, SERUM 0.88 mg/dL (0.57-1.11); EST GLOMERULAR FILTRATION RATE > 60 ML/MIN (60-); GLUCOSE 113 mg/dL (74-118); POTASSIUM 3.7 mmol/L (3.5-5.1); SODIUM 139 mmol/L (136-145)
[2017-08-11 07:52] LABS: EOSINOPHILS % (MANUAL) 3 % (0-7); LYMPHOCYTES % (MANUAL) 16 % (19-48); MONOCYTES % (MANUAL) 5 % (3.4-9.0); MYELOCYTES % (MANUAL) 1 % (0-0); NEUTROPHILS % (MANUAL) 75 % (40-74); PLATELET ESTIMATE ADEQUATE; PLATELET MORPHOLOGY COMMENT NORMAL; RBC MORPHOLOGY COMMENT NORMAL
[2017-08-11] MEDS: PANTOPRAZOLE SOD 40 MG TABEC PO SCH (07:55)
[2017-08-11] MEDS: SITAGLIPTIN 100 MG TAB PO SCH (08:26)
[2017-08-11] MEDS: INSULIN DETEMIR 100 UNIT/ML PEN SQ SCH (08:26)
[2017-08-11] MEDS: APIXABAN 5 MG TABLET PO SCH ×2 (08:26→16:50)
[2017-08-11] MEDS: METOPROLOL SUCCINATE 50 MG TAB XL PO SCH ×2 (08:26→16:51)
[2017-08-11] MEDS: SERTRALINE HCL 50 MG TAB PO SCH (08:26)
[2017-08-11] MEDS ORDERED: LEVOTHYROXINE SODIUM 75 MCG TAB PO SCH (09:00)
[2017-08-11] MEDS ORDERED: DIGOXIN 0.25 MG TAB PO SCH ×2 (09:00)
[2017-08-11] MEDS ORDERED: AMIODARONE HCL 200 MG TAB PO SCH (09:00)
[2017-08-11] MEDS: ACETAMINOPHEN 325 MG TAB PO PRN ×2 (09:22→21:54)
[2017-08-12] VITALS (10 sets, daily range): BP systolic 128–195; BP diastolic 56–92
[2017-08-12] MEDS: METRONIDAZOLE 500MG/NS 100ML 100 ML IV SCH ×2 (00:17→05:26)
[2017-08-12] MEDS: LEVOTHYROXINE SODIUM 100 MCG TAB PO SCH (05:26)
[2017-08-12] MEDS: LEVOTHYROXINE SODIUM 75 MCG TAB PO SCH (05:26)
[2017-08-12 06:30] LABS: BASOPHILS # (AUTO) 0.1 (0.0-0.1); BASOPHILS % 0.5 % (0.0-1.0); EOSINOPHILS # (AUTO) 0.5 (0.0-0.4); EOSINOPHILS % 3.5 % (0.0-6.0); HEMATOCRIT 35.8 % (34.2-44.1); MEAN CORPUSCULAR HEMOGLOBIN 25.2 pg (28-32); MEAN CORPUSCULAR HGB CONC 30.7 g/dL (31-35); MEAN CORPUSCULAR VOLUME 81.9 fL (81-99); MONOCYTES # (AUTO) 1.5 (0.2-0.8); NEUTROPHILS # (AUTO) 8.6 (2.1-6.9); NEUTROPHILS % 67.5 % (38.7-80.0); PLATELET COUNT 348 x10e3/uL (140-360); RED BLOOD COUNT 4.37 x10e6/uL (3.6-5.1); RED CELL DISTRIBUTION WIDTH 16.4 % (11.7-14.4)
[2017-08-12 06:50] LABS: ANION GAP 12.5 mmol/L (8-16); BLOOD UREA NITROGEN 10 mg/dL (7-26); BUN/CREATININE RATIO 13 (6-25); CARBON DIOXIDE 27 mmol/L (22-29); CHLORIDE 102 mmol/L (98-107); CREATININE, SERUM 0.79 mg/dL (0.57-1.11); EST GLOMERULAR FILTRATION RATE > 60 ML/MIN (60-); GLUCOSE 103 mg/dL (74-118); POTASSIUM 3.5 mmol/L (3.5-5.1); SODIUM 138 mmol/L (136-145)
--- NOTE | 2017-08-12 06:50 | Diagnostic Imaging Report ---
FOOT LEFT COMPLETE HISTORY: Left foot pain COMPARISON: None FINDINGS: Bones: No displaced fracture. All deformity of the distal fifth proximal phalanx Osseous alignment is within normal limits. Posterior calcaneal enthesophyte. Joints: The joint spaces are well-maintained. Soft tissues: The soft tissues appear unremarkable. IMPRESSION: No acute radiographic abnormality. Signed by: Dr. Maury Sands M.D. on 08/12/2017 6:46 AM
[2017-08-12 08:15] LABS: EOSINOPHILS % (MANUAL) 1 % (0-7); LYMPHOCYTES % (MANUAL) 13 % (19-48); MONOCYTES % (MANUAL) 9 % (3.4-9.0); NEUTROPHILS % (MANUAL) 74 % (40-74)
[2017-08-12 08:16] LABS: PLATELET ESTIMATE ADEQUATE; PLATELET MORPHOLOGY COMMENT NORMAL; RBC MORPHOLOGY COMMENT NORMAL
[2017-08-12] MEDS ORDERED: LISINOPRIL 10 MG TAB PO SCH (09:00)
[2017-08-12] MEDS: SITAGLIPTIN 100 MG TAB PO SCH (09:02)
[2017-08-12] MEDS: APIXABAN 5 MG TABLET PO SCH ×2 (09:02→16:47)
[2017-08-12] MEDS: PANTOPRAZOLE SOD 40 MG TABEC PO SCH (09:02)
[2017-08-12] MEDS: SODIUM CHLORIDE 0.9% 1000ML 1,000 ML IV SCH ×2 (09:03→22:08)
[2017-08-12] MEDS: SERTRALINE HCL 50 MG TAB PO SCH (09:03)
[2017-08-12] MEDS: METOPROLOL SUCCINATE 50 MG TAB XL PO SCH ×2 (09:03→16:49)
[2017-08-12] MEDS: INSULIN DETEMIR 100 UNIT/ML PEN SQ SCH (09:40)
[2017-08-12] MEDS ORDERED: METOCLOPRAMIDE HCL 10 MG/2ML VIAL IV PRN (11:45)
[2017-08-12] MEDS: LISINOPRIL 10 MG TAB PO SCH (16:47)
[2017-08-12] MEDS: ACETAMINOPHEN 325 MG TAB PO PRN (17:28)
--- NOTE | 2017-08-12 18:19 | Consultation ---
DATE OF CONSULTATION: August 12, 2017 This is an 82-year-old woman who presented to the hospital because of complaining of nausea and unable to eat. She said that she has been having intermittent diarrhea for about 6-8 weeks. She was diagnosed with atrial fibrillation and was given amiodarone, digoxin, metoprolol and Eliquis. Her workup revealed that she had a CAT scan of the abdomen and pelvis on admission which showed no acute abdominal type abnormalities and possible left adrenal adenoma, diverticulosis without diverticulitis. She also had stool study that was negative and mild anemia with hemoglobin of 11. Her other medical problems consisted of hypertension, history of chronic atrial fibrillation, history of hypothyroidism, history of diabetes, history of anemia, history of Hsu's palsy. MEDICATIONS: On admission, Eliquis, amiodarone, metoprolol and digoxin. ALLERGIES: NONE. SOCIAL HISTORY: No alcohol use. FAMILY HISTORY: Noncontributory. REVIEW OF SYSTEMS: Denies any chest pain. Denies any shortness of breath. Denies any dysphagia or odynophagia. Denies any dysuria or hematuria or any kind of syncopal episode. PHYSICAL EXAMINATION GENERAL: The patient is awake, alert, appears to be stable and not in any acute distress. VITAL SIGNS: Afebrile with stable vital signs. HEENT: Normocephalic, atraumatic. Sclerae anicteric. NECK: Supple. HEART: Sounds regular. LUNGS: Clear. ABDOMEN: Soft. There is no distention at this point and it is nontender. EXTREMITIES: No edema or clubbing. LABORATORY DATA: WBC of 12.75. Hemoglobin 11.0. BMP is normal. PT 17.5 several days ago. Digoxin level was high at 2.35. C. diff. is negative. . IMPRESSION[ 1. Nausea and intermittent diarrhea. C. diff. is negative. Currently, doing well. 2. Mild anemia. 3. History of atrial fibrillation. RECOMMENDATIONS: Continue on current treatment at this point with pantoprazole. Advance diet in the morning. We will consider upper endoscopy if she continues to be symptomatic with the nausea. This can be done on Tuesday. Job#: [id number] cc:QIAN SALAZAR MD
[2017-08-12] MEDS ORDERED: LOPERAMIDE HCL 2 MG CAP PO ONE (22:15)
[2017-08-13] VITALS (9 sets, daily range): BP systolic 160–217; BP diastolic 68–87
[2017-08-13] MEDS: LEVOTHYROXINE SODIUM 100 MCG TAB PO SCH (04:12)
[2017-08-13] MEDS: LEVOTHYROXINE SODIUM 75 MCG TAB PO SCH (04:12)
[2017-08-13] MEDS: LISINOPRIL 10 MG TAB PO SCH ×2 (04:12→17:00)
[2017-08-13] MEDS: ACETAMINOPHEN 325 MG TAB PO PRN ×2 (04:36→22:19)
[2017-08-13] MEDS: SITAGLIPTIN 100 MG TAB PO SCH (08:56)
[2017-08-13] MEDS: APIXABAN 5 MG TABLET PO SCH ×2 (08:56→17:00)
[2017-08-13] MEDS: PANTOPRAZOLE SOD 40 MG TABEC PO SCH (08:56)
[2017-08-13] MEDS: SERTRALINE HCL 50 MG TAB PO SCH (08:57)
[2017-08-13] MEDS: METOPROLOL SUCCINATE 50 MG TAB XL PO SCH ×2 (08:57→19:01)
[2017-08-13] MEDS: INSULIN DETEMIR 100 UNIT/ML PEN SQ SCH (09:00)
[2017-08-14] VITALS (7 sets, daily range): BP systolic 115–200; BP diastolic 68–100
[2017-08-14] MEDS: LEVOTHYROXINE SODIUM 75 MCG TAB PO SCH (04:55)
[2017-08-14] MEDS: LEVOTHYROXINE SODIUM 100 MCG TAB PO SCH (04:55)
[2017-08-14] MEDS: LISINOPRIL 10 MG TAB PO SCH ×2 (04:56→16:11)
[2017-08-14] MEDS: METOPROLOL SUCCINATE 50 MG TAB XL PO SCH ×2 (04:56→16:23)
[2017-08-14] MEDS: ACETAMINOPHEN 325 MG TAB PO PRN ×3 (04:56→17:27)
[2017-08-14 06:39] LABS: BASOPHILS # (AUTO) 0.1 (0.0-0.1); BASOPHILS % 0.6 % (0.0-1.0); EOSINOPHILS # (AUTO) 0.4 (0.0-0.4); EOSINOPHILS % 2.9 % (0.0-6.0); HEMATOCRIT 34.3 % (34.2-44.1); HEMOGLOBIN 10.9 g/dL (12.0-16.0); LYMPHOCYTES % 15.8 % (18.0-39.1); MEAN CORPUSCULAR HEMOGLOBIN 25.5 pg (28-32); MEAN CORPUSCULAR HGB CONC 31.8 g/dL (31-35); MEAN CORPUSCULAR VOLUME 80.1 fL (81-99); MONOCYTES # (AUTO) 1.4 (0.2-0.8); MONOCYTES % 11.1 % (4.4-11.3); NEUTROPHILS # (AUTO) 8.6 (2.1-6.9); PLATELET COUNT 392 x10e3/uL (140-360); RED BLOOD COUNT 4.28 x10e6/uL (3.6-5.1); RED CELL DISTRIBUTION WIDTH 16.5 % (11.7-14.4)
[2017-08-14 07:05] LABS: ANION GAP 13.2 mmol/L (8-16); BLOOD UREA NITROGEN 9 mg/dL (7-26); BUN/CREATININE RATIO 12 (6-25); CALCIUM 8.9 mg/dL (8.4-10.2); CARBON DIOXIDE 27 mmol/L (22-29); CHLORIDE 102 mmol/L (98-107); CREATININE, SERUM 0.77 mg/dL (0.57-1.11); EST GLOMERULAR FILTRATION RATE > 60 ML/MIN (60-); GLUCOSE 125 mg/dL (74-118); POTASSIUM 3.2 mmol/L (3.5-5.1); SODIUM 139 mmol/L (136-145)
[2017-08-14] MEDS: PANTOPRAZOLE SOD 40 MG TABEC PO SCH (08:18)
[2017-08-14] MEDS: SERTRALINE HCL 50 MG TAB PO SCH (08:18)
[2017-08-14] MEDS: SITAGLIPTIN 100 MG TAB PO SCH (08:18)
[2017-08-14] MEDS: APIXABAN 5 MG TABLET PO SCH ×2 (08:18→16:11)
[2017-08-14] MEDS: INSULIN DETEMIR 100 UNIT/ML PEN SQ SCH (08:19)
[2017-08-14] MEDS: CEPHALEXIN 500 MG CAP PO SCH (20:30)
[2017-08-15] VITALS (7 sets, daily range): BP systolic 98–192; BP diastolic 64–92
[2017-08-15] MEDS: LEVOTHYROXINE SODIUM 100 MCG TAB PO SCH (04:43)
[2017-08-15] MEDS: ACETAMINOPHEN 325 MG TAB PO PRN ×3 (04:43→20:13)
[2017-08-15] MEDS: LEVOTHYROXINE SODIUM 75 MCG TAB PO SCH (04:43)
[2017-08-15] MEDS: LISINOPRIL 10 MG TAB PO SCH ×2 (04:43→17:43)
[2017-08-15] MEDS: PANTOPRAZOLE SOD 40 MG TABEC PO SCH (07:30)
[2017-08-15] MEDS: CEPHALEXIN 500 MG CAP PO SCH ×2 (09:00→20:13)
[2017-08-15] MEDS: METOPROLOL SUCCINATE 50 MG TAB XL PO SCH ×2 (09:00→17:44)
[2017-08-15] MEDS: APIXABAN 5 MG TABLET PO SCH ×2 (09:00→17:42)
[2017-08-15] MEDS: SERTRALINE HCL 50 MG TAB PO SCH (09:00)
[2017-08-15] MEDS: SITAGLIPTIN 100 MG TAB PO SCH (09:00)
[2017-08-15] MEDS: INSULIN DETEMIR 100 UNIT/ML PEN SQ SCH (09:00)
[2017-08-15] MEDS ORDERED: COLCHICINE 0.6 MG TAB PO NR ×2 (10:45→11:45)
[2017-08-15] MEDS: PREDNISONE 20 MG TAB PO SCH (10:45)
[2017-08-15] MEDS: POTASSIUM CHLORIDE 20 MEQ TAB CR PO SCH (10:47)
--- NOTE | 2017-08-15 11:06 | Diagnostic Imaging Report ---
PROCEDURE:X-RAY RIGHT WRIST, COMPLETE COMPARISON:None. INDICATIONS:RIGHT WRIST PAIN FINDINGS: There are no fractures, dislocations, lytic or blastic lesions. Appropriate alignment between the distal radius, lunate, and capitate is maintained on the lateral wrist radiograph. Subchondral cystic changes along the base of the lunate which may reflect ulnar abutment syndrome in the setting of mildly positive ulnar variance. The bones are well-mineralized. The soft-tissues are unremarkable. CONCLUSION: No acute osseous abnormality. Dictated by: Clement Giles M.D. on 08/15/2017 at 11:10 Electronically approved by: Clement Giles M.D. on 08/15/2017 at 11:10
--- NOTE | 2017-08-15 13:03 | Progress Note ---
DATE: SUBJECTIVE: Ms. Smiley this morning is feeling better in terms of not having any nausea. She has been able to eat and drink. However, she is complaining about increasing swelling and pain of the right wrist. She has been afebrile. Since yesterday, she was started on oral cephalexin to cover the possibility of phlebitis. OBJECTIVE VITAL SIGNS: Today, her blood pressure is 98/64, pulse rate 72, respirations 18, temperature is 97.8. CHEST: Clear. There are decreased breath sounds. HEART: S1, S2, irregular. ABDOMEN: Bowel sounds positive, soft, nontender. EXTREMITIES: There is only trace pedal edema. Examination of the right wrist reveals significant swelling with some erythema and increased warmth. The maximum point of tenderness is localized over the wrist joint. She does not have significant swelling at the elbow level. ASSESSMENT 1. Suspected acute gout. 2. Thrombophlebitis less likely. 3. Nausea, improved. 4. Hypertension, controlled. 5. Type-2 diabetes mellitus, controlled. PLAN 1. Start prednisone 20 mg daily. 2. Patient is to receive one single dose of colchicine 1.2 mg followed by 0.6 mg one hour later. I have requested x-rays of the right wrist well as a venous Doppler examination of the right upper extremity. Job#: [id number]
[2017-08-16] VITALS: BP 194/89
[2017-08-16 00:15] VITALS: BP 176/83
[2017-08-16 04:00] VITALS: BP 195/91
[2017-08-16] MEDS: LEVOTHYROXINE SODIUM 100 MCG TAB PO SCH (05:08)
[2017-08-16] MEDS: LEVOTHYROXINE SODIUM 75 MCG TAB PO SCH (05:08)
[2017-08-16 07:00] VITALS: BP 196/83
[2017-08-16] MEDS: PANTOPRAZOLE SOD 40 MG TABEC PO SCH (08:00)
[2017-08-16 08:43] VITALS: BP 196/83
[2017-08-16] MEDS: CEPHALEXIN 500 MG CAP PO SCH ×2 (09:01→21:32)
[2017-08-16] MEDS: APIXABAN 5 MG TABLET PO SCH ×2 (09:01→18:22)
[2017-08-16] MEDS: SITAGLIPTIN 100 MG TAB PO SCH (09:01)
[2017-08-16] MEDS: LISINOPRIL 10 MG TAB PO SCH ×2 (09:02→18:23)
[2017-08-16] MEDS: METOPROLOL SUCCINATE 50 MG TAB XL PO SCH ×2 (09:02→18:24)
[2017-08-16] MEDS: SERTRALINE HCL 50 MG TAB PO SCH (09:02)
[2017-08-16] MEDS: INSULIN DETEMIR 100 UNIT/ML PEN SQ SCH (09:03)
[2017-08-17 00:07] VITALS: BP 180/77
[2017-08-17 05:09] VITALS: BP 210/102
[2017-08-17] MEDS: LEVOTHYROXINE SODIUM 100 MCG TAB PO SCH (06:40)
[2017-08-17] MEDS: LEVOTHYROXINE SODIUM 75 MCG TAB PO SCH (06:40)
[2017-08-17 06:56] LABS: ANION GAP 11.7 mmol/L (8-16); BLOOD UREA NITROGEN 18 mg/dL (7-26); BUN/CREATININE RATIO 23 (6-25); CALCIUM 9.4 mg/dL (8.4-10.2); CARBON DIOXIDE 27 mmol/L (22-29); CHLORIDE 100 mmol/L (98-107); CREATININE, SERUM 0.79 mg/dL (0.57-1.11); EST GLOMERULAR FILTRATION RATE > 60 ML/MIN (60-); GLUCOSE 155 mg/dL (74-118); POTASSIUM 3.7 mmol/L (3.5-5.1); SODIUM 135 mmol/L (136-145)
[2017-08-17 07:05] VITALS: BP 202/96
[2017-08-17 07:09] LABS: BASOPHILS # (AUTO) 0.1 (0.0-0.1); BASOPHILS % 0.5 % (0.0-1.0); EOSINOPHILS # (AUTO) 0.3 (0.0-0.4); EOSINOPHILS % 2.2 % (0.0-6.0); HEMATOCRIT 32.9 % (34.2-44.1); HEMOGLOBIN 10.3 g/dL (12.0-16.0); LYMPHOCYTES # (AUTO) 2.6 (1.0-3.2); LYMPHOCYTES % 22.8 % (18.0-39.1); MEAN CORPUSCULAR HGB CONC 31.3 g/dL (31-35); MEAN CORPUSCULAR VOLUME 79.9 fL (81-99); MONOCYTES # (AUTO) 1.1 (0.2-0.8); MONOCYTES % 9.4 % (4.4-11.3); NEUTROPHILS # (AUTO) 7.5 (2.1-6.9); NEUTROPHILS % 64.6 % (38.7-80.0); PLATELET COUNT 427 x10e3/uL (140-360); RED BLOOD COUNT 4.12 x10e6/uL (3.6-5.1); RED CELL DISTRIBUTION WIDTH 16.4 % (11.7-14.4)
[2017-08-17 07:41] VITALS: BP 202/96
[2017-08-17] MEDS: PANTOPRAZOLE SOD 40 MG TABEC PO SCH (08:34)
[2017-08-17] MEDS: APIXABAN 5 MG TABLET PO SCH (08:34)
[2017-08-17] MEDS: SITAGLIPTIN 100 MG TAB PO SCH (08:34)
[2017-08-17] MEDS: CEPHALEXIN 500 MG CAP PO SCH (08:35)
[2017-08-17] MEDS: POTASSIUM CHLORIDE 20 MEQ TAB CR PO SCH (08:35)
[2017-08-17] MEDS: PREDNISONE 20 MG TAB PO SCH (08:35)
[2017-08-17] MEDS: SERTRALINE HCL 50 MG TAB PO SCH (08:36)
[2017-08-17] MEDS: METOPROLOL SUCCINATE 50 MG TAB XL PO SCH (08:36)
[2017-08-17] MEDS: LISINOPRIL 10 MG TAB PO SCH (08:36)
[2017-08-17] MEDS ORDERED: Apixaban PO (08:39)
[2017-08-17] MEDS ORDERED: PREDNISONE20 MG PO (08:41)
[2017-08-17] MEDS ORDERED: ALLOPURINOL100 MG PO (08:41)
[2017-08-17] MEDS: INSULIN DETEMIR 100 UNIT/ML PEN SQ SCH (08:49)
[2017-08-17 11:46] VITALS: BP 242/106
--- NOTE | 2017-08-17 13:26 | Discharge Summary ---
DISCHARGE DIAGNOSES 1. Acute gout, resolving. 2. Nausea, resolved. 3. Adverse drug reaction, resolved. 4. Chronic atrial fibrillation. 5. Type 2 diabetes mellitus, controlled. 6. Hypertension, controlled. Ms. Smiley is a very pleasant 82-year-old lady well known to me from the office and prior hospital admissions. She presented to the emergency department complaining about continued nausea and intermittent episodes of diarrhea. According to the patient, the symptoms have been going on for about 6-8 weeks and began mainly after her diagnosis of atrial fibrillation. She is currently on amiodarone, digoxin, metoprolol, and Eliquis. She traveled recently to visit with some family, and the symptoms became more intolerable and decided to present for evaluation. On admission, her digoxin level was over the therapeutic level of 2. Therefore, digoxin was stopped. She has been poorly tolerating amiodarone so the medication was put on hold and the patient was observed. There was no evidence of worsening rate of her atrial fibrillation. The patient initially had a very slow improvement of the nausea. Gastroenterology evaluation was requested. It was decided to continue with a conservative approach and the patient slowly has improved. During the admission, about 48 hours after admission, she complained first of pain in the dorsum of the right foot. There was no evidence of trauma. No evidence of inflammation. An x-ray was negative. Then about 5 days into the admission, she began complaining about very excruciating pain in the right breast this time accompanied with erythema and signs of inflammation. The patient's venous Doppler was negative. The x-ray of the wrist was negative. Her uric acid levels were high. The likelihood of an acute gouty attack was high. She was started on prednisone 20 mg daily. She received 2 doses of colchicine 1.2 mg and then 0.6 mg an hour later. With this approach, the symptoms have a markedly improved. She is being discharged home in stable condition. She is given prescriptions for prednisone 10 mg daily for an additional 7 days and prescription for allopurinol 100 mg daily. She knows that she is not to continue amiodarone or digoxin. She is to follow up in my office within 7-10 days. QIAN SALAZAR MD Job#: [id number] MICHAEL
== END 2017-08-17 12:30 | disposition home or self-care (01) | DRG 392 ==
LOC: ER 09:10 → ERHOLD 14:00 → MED/SURG2 14:29
PROVIDERS: ADMIT Internal Medicine; ATTEND Internal Medicine
DX: R11.2 Nausea with vomiting, unspecified (principal); T46.0X5A Adverse effect of cardiac-stimulant glycosides and drugs of similar action, initial encounter; I48.2 Chronic atrial fibrillation; E86.9 Volume depletion, unspecified; Z79.01 Long term (current) use of anticoagulants; I80.8 Phlebitis and thrombophlebitis of other sites; E03.9 Hypothyroidism, unspecified; E53.8 Deficiency of other specified B group vitamins; I10 Essential (primary) hypertension; E11.9 Type 2 diabetes mellitus without complications; M10.9 Gout, unspecified; R13.10 Dysphagia, unspecified
CPT/HCPCS: 36415; 71045; 74176; 80048; 80053; 80162; 81001; 82550; 82553; 82948; 83880; 84484; 84550; 85025; 85610; 85730; 87040; 87045; 87177; 87328; 87493; 93005; 93971; 99284; J2550; J2765; J7030

== ENCOUNTER 2018-07-18 16:16 | Inpatient (IN) | payer MEDICARE, OTHER ==
[~2018-07-18] VITALS: Ht 170.2 cm; Wt 91.2 kg
[2018-07-18] MEDS: FAMOTIDINE 20 MG TAB PO SCH (01:05)
[~2018-07-18 16:16] MED LIST changes: +ALLOPURINOL100 MG PO; +AMIODARONE HCL200 MG PO; +Apixaban PO; +DIGOXIN250 MCG PO; +METOPROLOL SUCC50 MG PO; +OMEPRAZOLE40 MG; +PREDNISONE20 MG PO; +VITAMIN D3400 UNIT
--- OUTSIDE RECORDS SUMMARY | 2018-07-18 16:20 | XMS REPORT | Summary of Care ---
Author Author [facility] Organization [facility] Address Unknown Phone Unavailable Encounter HQ Jasbir_rowena(FIN) [id number] Date(s): 09/22/17 - 09/22/17 [facility] [place] [address] [place] [phone] Encounter Diagnosis Other abnormal and inconclusive findings on diagnostic imaging of breast (Final) - 09/29/17 Discharge Disposition: Home or Self Care Attending Physician: Owen Braswell MD Referring Physician: Owen Braswell MD Vital Signs No data available for this section Problem List Condition Effective Dates Status Health Status Informant Anemia(Confirmed) Resolved Atrial Resolved fibrillation(Confirm ed) Hsu Resolved palsy(Confirmed) Diabetes(Confirmed) Resolved Heart Resolved failure(Confirmed) HTN Resolved (hypertension)(Confi rmed) Allergies, Adverse Reactions, Alerts Substance Reaction Severity Status codeine Active NKDA Active Medications No data available for this section Results No data available for this section Immunizations No data available for this section Procedures Procedure Date Related Diagnosis Body Site Status Appendectomy Completed Cataract extraction Completed Catheterization of both left and right heart Completed Cholecystectomy Completed Hysterectomy Completed Tonsillectomy Completed Transesophageal echocardiogram Completed Social History Social History Type Response Substance Abuse Use: None. Exercise 1 Employment/School Status: Retired. 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 Highest education level: High school. Alcohol Never Smoking Status Never smoker; Previous treatment: None; Exposure to Tobacco Smoke None; Cigarette Smoking Last 365 Days No; Reg Smoking Cessation Counseling No entered on: 01/11/18 1"NO" Assessment and Plan No data available for this section
--- OUTSIDE RECORDS SUMMARY | 2018-07-18 16:20 | XMS REPORT | Continuity of Care Document ---
Author Author [facility] Interface Address Unknown Phone Unavailable Problems Problem Status Onset Date Classification Date Reported Comments Source CCL / EPS PVI ABLATION W/ CARTO / GA Active 04/28/2018 [facility] ATRIAL FIBRILLATION Active 04/14/2018 [facility] ATRIAL FIBRILLATION Active 04/14/2018 [facility] R92.8 - OTH ABN AND INCONCLUSIVE FINDI Active 03/01/2018 DANIELLE Cooper CCL/ EPS PVI ABLATION W/ CARTO / GA Active 01/09/2018 [facility] AFIB, PRE ABLATION Active 12/23/2017 [facility] Other abnormal and inconclusive findings on diagnostic imaging of breast 10/01/2017 04/12/2018 [facility] DX: ATRIAL FIBRILATION R Active 09/19/2017 [facility] I48.1 Active 08/31/2017 [facility] R06.00 - DYSPNEA, UNSPECIFIED Active 07/26/2017 [facility] Other specified disorders of breast 04/01/2017 07/04/2017 DANIELLE Cooper Encounter for screening mammogram for malignant neoplasm of breast 03/04/2017 06/08/2017 DANIELLE Cooper Z12.31 - ENCNTR SCREEN MAMMOGRAM FOR MA Active 01/22/2015 DANIELLE Cooper Anemia Resolved Problem 05/05/2018 [facility] Atrial fibrillation Resolved Problem 05/05/2018 [facility] palsy Resolved Problem 05/05/2018 [facility] Diabetes Resolved Problem 05/05/2018 [facility] Heart failure Resolved Problem 05/05/2018 [facility] HTN (<span [id number]">Confirmed</span>) Resolved Problem 05/05/2018 [facility] Encounter for general adult medical examination without abnormal findings 04/12/2018 [facility] Encounter for immunization 04/12/2018 [facility] Hypercalcemia 04/12/2018 [facility] Hypothyroidism, unspecified 04/12/2018 [facility] Gastro-esophageal reflux disease without esophagitis 04/12/2018 [facility] Low back pain 04/12/2018 [facility] Nonrheumatic mitral insufficiency 04/12/2018 [facility] Pain in left shoulder 04/12/2018 [facility] Acute upper respiratory infection, unspecified 04/12/2018 [facility] Urinary tract infection, site not specified 04/12/2018 [facility] Acute atopic conjunctivitis, bilateral 04/12/2018 [facility] Other seasonal allergic rhinitis 04/12/2018 [facility] Contusion of unspecified upper arm, initial encounter 04/12/2018 [facility] Unspecified atrial fibrillation 04/12/2018 [facility] Chronic atrial fibrillation 04/12/2018 [facility] Type 2 diabetes mellitus with diabetic chronic kidney disease 04/12/2018 [facility] Dyspnea, unspecified 04/12/2018 [facility] Essential hypertension 04/12/2018 [facility] Diarrhea Active Problem 08/17/2017 [facility] Gastroenteritis Active Problem 08/17/2017 [facility] Volume depletion Active Problem 08/17/2017 [facility] CHRONIC ATRIAL FIBRILLATION Active [facility] UNSPECIFIED ATRIAL FIBRILLATION Active [facility] PERSISTENT ATRIAL FIBRILLATION Active [facility] Medications Medication Details Route Status Patient Instructions Ordering Provider Order Date Source Januvia 50 mg, 1 tab, Route: PO, Drug form: TAB, Daily, Dosing Weight 89.545, kg, Start date: 05/03/18 9:00:00 CDT, Duration: 30 day, Stop date: 06/01/18 9:00:00 CDTNotes: Same as Januvia Inactive 05/03/2018 [facility] Sertraline 50 mg, 1 tab, Route: PO, Drug form: TAB, Daily, Dosing Weight 89.545, kg, Start date: 05/03/18 9:00:00 CDT, Duration: 30 day, Stop date: 06/01/18 9:00:00 CDTNotes: (Same as: Zoloft) Inactive 05/03/2018 [facility] Fish Oil 3,000 mg, 3 cap, Route: PO, Drug form: CAP, Daily, Dosing Weight 89.545, kg, Start date: 05/03/18 9:00:00 CDT, Duration: 30 day, Stop date: 06/01/18 9:00:00 CDTNotes: (Same as: MaxEPA, Maynard 3 fish oil ) Non-Formulary Drug Inactive 05/03/2018 [facility] 24 HR Metoprolol Tartrate 100 MG Extended Release Tablet [Toprol] 100 mg, 1 tab, Route: PO, Drug form: ERTAB, Daily, Start date: 05/03/18 9:00:00 CDT, Duration: 30 day, Stop date: 06/01/18 9:00:00 CDTNotes: (Same as: Toprol XL) May split tab, but do not crush. Inactive 05/03/2018 [facility] Lisinopril 10 mg, 1 tab, Route: PO, Drug form: TAB, Daily, Dosing Weight 89.545, kg, Start date: 05/03/18 9:00:00 CDT, Duration: 30 day, Stop date: 06/01/18 9:00:00 CDTNotes: (Same as: Prinivil, Zestril) Inactive 05/03/2018 [facility] Thyroxine 175 microgram, Route: PO, Drug form: TAB, Daily, Dosing Weight 89.545, kg, Start date: 05/03/18 9:00:00 CDT, Duration: 30 day, Stop date: 06/01/18 9:00:00 CDT No Longer Active 05/03/2018 [facility] pantoprazole 40 mg, 1 tab, Route: PO, Drug form: ECTAB, Daily, Dosing Weight 89.545, kg, Start date: 05/03/18 9:00:00 CDT, Duration: 14 day, Stop date: 05/16/18 9:00:00 CDTNotes: Tablet should not be chewed or cr ushed. (Same as: Protonix) Inactive 05/03/2018 [facility] Diltiazem 240 mg, 1 cap, Route: PO, Drug form: ERCAP, Daily, Dosing Weight 89.545, kg, Start date: 05/03/18 9:00:00 CDT, Duration: 30 day, Stop date: 06/01/18 9:00:00 CDTNotes: (Same as: Cardizem CD) Before meals. DO NOT CRUSH. Inactive 05/03/2018 [facility] Vitamin D3 1000 intl units oral tablet 1,000 IntlUnit, 1 tab, Route: PO, Drug form: TAB, Daily, Dosing Weight 89.545, kg, Start date: 05/03/18 9:00:00 CDT, Duration: 30 day, Stop date: 06/01/18 9:00:00 CDTNotes: Same as : Vitamin D3 Inactive 05/03/2018 [facility] Allopurinol 100 mg, 1 tab, Route: PO, Drug form: TAB, Daily, Dosing Weight 89.545, kg, Start date: 05/03/18 9:00:00 CDT, Duration: 30 day, Stop date: 06/01/18 9:00:00 CDTNotes: (Same as: Zyloprim) Inactive 05/03/2018 [facility] torsemide 5 mg, 1 tab, Route: PO, Drug form: TAB, Daily, Dosing Weight 89.545, kg, Start date: 05/03/18 9:00:00 CDT, Duration: 30 day, Stop date: 06/01/18 9:00:00 CDTNotes: (Same As: Demadex) Inactive 05/03/2018 [facility] tramadol hydrochloride 50 MG Oral Tablet 50 mg=1 tab, PO, Q4H, PRN Pain Score 1-3, # 15 tab, 0 Refill(s) Active 05/03/2018 [facility] sucralfate 1 g oral tablet 1 gm=1 tab, PO, Q12H, # 28 tab, 0 Refill(s) Active 05/03/2018 [facility] pantoprazole 40 mg oral enteric coated tablet 40 mg=1 tab, PO, Daily, # 30 tab, 0 Refill(s) Active 05/03/2018 [facility] dronedarone 400 mg oral tablet 400 mg=1 tab, PO, BID, # 60 tab, 3 Refill(s) Active 05/03/2018 [facility] Levothroid 100 microgram, 1 tab, Route: PO, Drug form: TAB, Q630AM, Start date: 05/03/18 6:30:00 CDT, Duration: 30 day, Stop date: 06/01/18 6:30:00 CDTNotes: Take 1 hour before or 2 hours after meal; Enteral fe eds may interefere with the absorption of this medication. (Same as:Levothroid, Synthroid) Inactive 05/03/2018 [facility] Synthroid 75 microgram, 1 tab, Route: PO, Drug form: TAB, Q630AM, Start date: 05/03/18 6:30:00 CDT, Duration: 30 day, Stop date: 06/01/18 6:30:00 CDTNotes: Take 1 hour before or 2 hours after meal; Enteral feeds may interefere with the absorption of this medication. (Same as:Synthroid, Levothroid) Inactive 05/03/2018 [facility] Pravastatin 20 mg, 1 tab, Route: PO, Drug form: TAB, Bedtime, Dosing Weight 89.545, kg, Start date: 05/02/18 21:00:00 CDT, Duration: 30 day, Stop date: 05/31/18 21:00:00 CDTNotes: (Same as: Pravachol) No Longer Active 05/03/2018 [facility] Saline Flush 0.9% 10 ml, Route: IVP, Drug Form: INJ, Dosing Weight 89.545, kg, Q12H, Start date: 05/02/18 21:00:00 CDT, Duration: 30 day, Stop date: 06/01/18 9:00:00 CDTNotes: (Same as: BD Posiflush) No Longer Active 05/03/2018 [facility] Sucralfate 1 gm, 1 tab, Route: PO, Drug form: TAB, Q12H, Dosing Weight 89.545, kg, Start date: 05/02/18 21:00:00 CDT, Duration: 14 day, Stop date: 05/16/18 9:00:00 CDTNotes: May interfere w/enteral feeds - Take 1 hr before or 2 hr after antacids, dairy pdt, meals & minerals - On empty stomach. For patients unable to swallow tablet, dissolve in 10mL - 30mL of water or juice and stir before giving. (Same As: Carafate) No Longer Active 05/03/2018 [facility] Insulin regular 10 unit, 0.1 mL, Route: SUB-Q, Drug form: SOLN, TID-Before Meals, Dosing Weight 89.545, kg, PRN Blood Glucose Results, Start date: 05/02/18 17:34:00 CDT, Duration: 30 day, Stop date: 06/01/18 17:33:0 0 CDTNotes: (Same as: Humulin R) Roll in palms of hands gently; Do not shake vigorously. "single patient use only" (Restricted to patients requiring a dose > 60 units) WASTE: F/P - Black; E - Municipal Trash Bin Stable for 28 days at room temperature Expires in days from Date No Longer Active 05/02/2018 [facility] Dextrose 50% Syringe 25 gm, 50 mL, Route: IVP, Drug Form: INJ, Dosing Weight 89.545, kg, PRN, PRN Blood Glucose Results, Start date: 05/02/18 17:34:00 CDT, Duration: 30 day, Stop date: 06/01/18 17:33:00 CDT No Longer Active 05/02/2018 [facility] Glucagon 1 mg, Route: IM, Drug form: PDR/INJ, PRN, Dosing Weight 89.545, kg, PRN Blood Glucose Results, Start date: 05/02/18 17:34:00 CDT, Duration: 30 day, Stop date: 06/01/18 17:33:00 CDT No Longer Active 05/02/2018 [facility] Multaq 400 mg, 1 tab, Route: PO, Drug form: TAB, BID, Dosing Weight 89.545, kg, Start date: 05/02/18 17:00:00 CDT, Duration: 30 day, Stop date: 06/01/18 9:00:00 CDTNotes: Same as: Multaq No Longer Active 05/02/2018 [facility] Bupropion 100 mg, 1 tab, Route: PO, Drug form: TAB, BID, Dosing Weight 89.545, kg, Start date: 05/02/18 17:00:00 CDT, Duration: 30 day, Stop date: 06/01/18 9:00:00 CDTNotes: (Same As: Wellbutrin) No Longer Active 05/02/2018 [facility] Warfarin 6 mg, 2 tab, Route: PO, Drug form: TAB, Q5PM, Dosing Weight 89.545, kg, Start date: 05/02/18 17:00:00 CDT, Duration: 1 day, Stop date: 05/02/18 17:00:00 CDTNotes: Nurse to ensure documentation of patient education per anticoagulation policy. Avoid large intake of vitamin-K containing foods diet. (Same As: Coumadin) WASTE: F/P - P Waste Black; E - P Waste Black Inactive 05/02/2018 [facility] Ondansetron 4 mg, 2 mL, Route: IVP, Drug form: INJ, ONCE, Dosing Weight 89.545, kg, PRN Nausea & Vomiting, Start date: 05/02/18 10:29:00 CDTNotes: (Same as: Zofran) MEDICATION WASTE Product Size: 4 mg Product Wasted: ___ mg No Longer Active 05/02/2018 [facility] Flumazenil 0.2 mg, 2 mL, Route: IVP, Drug form: INJ, PRN, Dosing Weight 89.545, kg, PRN Benzodiazepine Reversal, Initial dose, Start date: 05/02/18 10:29:00 CDT, Duration: 1 day, Stop date: 05/03/18 10:32:00 CD TNotes: (Same as: Romazicon) No Longer Active 05/02/2018 [facility] Naloxone 0.4 mg, 1 mL, Route: IVP, Drug form: INJ, Q2MIN, Dosing Weight 89.545, kg, PRN Narcotic Reversal, Start date: 05/02/18 10:29:00 CDT, Duration: 8 doses or times, Stop date: 05/03/18 10:33:00 CDTNotes: Same as Narcan No Longer Active 05/02/2018 [facility] tramadol hydrochloride 50 MG Oral Tablet 50 mg, 1 tab, Route: PO, Drug form: TAB, Q4H, Dosing Weight 89.545, kg, PRN Pain Score 1-3, Start date: 05/02/18 10:18:00 CDT, Duration: 30 day, Stop date: 06/01/18 10:17:00 CDTNotes: Not to exceed 400mg/day. (Same As: Ultram) No Longer Active 05/02/2018 [facility] glycopyrrolate (ANES) Route: IV, Drug form: INJ, ONCE, Stop date: 05/02/18 10:18:00 CDT Inactive 05/02/2018 [facility] neostigmine (ANES) Route: IV, Drug form: INJ, ONCE, Stop date: 05/02/18 10:18:00 CDT Inactive 05/02/2018 [facility] ondansetron (ANES) Route: IV, Drug form: INJ, ONCE, Stop date: 05/02/18 10:18:00 CDT Inactive 05/02/2018 [facility] dexamethasone (ANES) Route: IV, Drug form: INJ, ONCE, Stop date: 05/02/18 10:18:00 CDT Inactive 05/02/2018 [facility] Saline Flush 0.9% 10 ml, Route: IVP, Drug Form: INJ, Dosing Weight 89.545, kg, PRN, PRN Line Flush, Start date: 05/02/18 10:17:00 CDT, Duration: 30 day, Stop date: 06/01/18 10:16:00 CDTNotes: (Same as: BD Posiflush) No Longer Active 05/02/2018 [facility] Morphine 2 mg, 0.5 mL, Route: IVP, Drug form: SOLN, ONCE, Dosing Weight 89.545, kg, PRN Pain Score 7-10, Start date: 05/02/18 10:17:00 CDTNotes: (Same as:MORPhine Sulfate) No Longer Active 05/02/2018 [facility] protamine (ANES) 10 mg Route: IV, Drug form: INJ, Start date: 05/02/18 9:56:00 CDT, Stop date: 05/02/18 10:56:00 CDT Inactive 05/02/2018 [facility] heparin (ANES) Route: IV, Drug form: INJ, ONCE, Stop date: 05/02/18 9:15:00 CDT Inactive 05/02/2018 [facility] propofol (ANES) Route: IV, Drug form: INJ, ONCE, Stop date: 05/02/18 8:30:00 CDT Inactive 05/02/2018 [facility] lidocaine (ANES) Route: IV, Drug form: INJ, ONCE, Stop date: 05/02/18 8:30:00 CDT Inactive 05/02/2018 [facility] fentaNYL (ANES) Route: IV, Drug form: INJ, ONCE, Stop date: 05/02/18 8:30:00 CDT Inactive 05/02/2018 [facility] rocuronium (ANES) Route: IV, Drug form: INJ, ONCE, Stop date: 05/02/18 8:30:00 CDT Inactive 05/02/2018 [facility] Sodium Chloride 0.9% IV (ANES) 1000 mL Route: IV, Total Volume: 1,000, Start date: 05/02/18 7:32:00 CDT, Stop date: 05/02/18 8:32:00 CDT Inactive 05/02/2018 [facility] Magnesium Sulfate 2 gm, 50 mL, Route: IVPB, Drug form: INJ, ONCE, Dosing Weight 89.545, kg, Start date: 05/02/18 7:21:00 CDT, Stop date: 05/02/18 7:21:00 CDTNotes: WASTE: F/P - Sink; E - Municipal Trash Bin Inactive 05/02/2018 [facility] normal saline 0.9% IV 1,000 mL 1,000 mL, Rate: 100 ml/hr, Infuse over: 10 hr, Route: IV, Dosing Weight 89.545 kg, Total Volume: 1,000, Start date: 05/02/18 6:10:00 CDT, Duration: 30 day, Stop date: 06/01/18 6:09:00 CDT, 2.08, m2 No Longer Active 05/02/2018 [facility] Fish Oil 1000 mg oral capsule 3,000 mg=3 cap, PO, Daily, 0 Refill(s) Active 04/24/2018 [facility] Vitamin B12 1000 mcg/mL injectable solution 1,000 microgram=1 mL, IM, qMonth, # 30 mL, 0 Refill(s) Active 04/24/2018 [facility] warfarin 6 mg oral tablet 6 mg=1 tab, PO, Daily, # 30 tab, 0 Refill(s) Active 04/24/2018 [facility] 3 ML insulin degludec 100 UNT/ML Pen Injector [Tresiba] 26 units, SUB-Q, Bedtime, 0 Refill(s) Active 04/24/2018 [facility] Vitamin D3 1000 intl units oral capsule 1,000 IntlUnit=1 cap, PO, Daily, # 100 cap, 0 Refill(s) Active 09/23/2017 [facility] meclizine 25 mg oral tablet, chewable 25 mg=1 tab, CHEW, TID, PRN for motion sickness, # 60 tab, 0 Refill(s) Active 09/23/2017 [facility] Omeprazole 20 MG / Sodium Bicarbonate 1100 MG Oral Capsule [Zegerid Reformulated Sep 2005] 1 tab, PO, Daily, 0 Refill(s) Active 09/23/2017 [facility] 3 ML Insulin Glargine 100 UNT/ML Prefilled Syringe [Lantus] See Instructions, 0 Refill(s) Active 09/23/2017 [facility] metoprolol tartrate 100 mg oral tablet 100 mg=1 tab, PO, BID, # 60 tab, 0 Refill(s) Active 09/23/2017 [facility] pravastatin 20 mg oral tablet 20 mg=1 tab, PO, Bedtime, # 30 tab, 0 Refill(s) Active 09/23/2017 [facility] levothyroxine 175 mcg (0.175 mg) oral tablet 175 microgram=1 tab, PO, Daily, # 30 tab, 0 Refill(s) Active 09/23/2017 [facility] allopurinol 100 mg oral tablet 100 mg=1 tab, PO, Daily, # 60 tab, 0 Refill(s) Active 09/23/2017 [facility] indapamide 1.25 mg oral tablet 1.25 mg=1 tab, PO, QAM, # 30 tab, 0 Refill(s) Active 09/23/2017 [facility] Bupropion 100 mg, PO, BID, 0 Refill(s) Active 09/23/2017 [facility] lisinopril 10 mg oral tablet 10 mg=1 tab, PO, Daily, # 30 tab, 0 Refill(s) Active 09/23/2017 [facility] Insulin, Aspart, Human 100 UNT/ML Injectable Solution [NovoLog] See Special Instructions, SUB-Q, TID-Before Meals, Inject 7 units before breakfast, lunch, and dinner. Do not take at bedtime unless instructed by your doctor, vial, 0 Refill(s) Active 09/23/2017 [facility] sertraline 50 mg oral tablet 50 mg=1 tab, PO, Daily, # 30 tab, 0 Refill(s) Active 09/23/2017 [facility] Diltiazem 30 mg, PO, TID, 0 Refill(s) Active 09/23/2017 [facility] sitagliptin 50 MG Oral Tablet [Januvia] 50 mg=1 tab, PO, Daily, # 90 tab, 1 Refill(s) Active 09/23/2017 [facility] Allopurinol 100 Mg Tablet Daily Active [place] 08/17/2017 [facility] Apixaban 5 Mg Tablet Twice A Day Active [place] 08/17/2017 [facility] Prednisone 20 Mg Tab Daily Active [place] 08/17/2017 [facility] Amiodarone Hcl 200 Mg Tablet, 200 Mg Oral Daily Active 08/17/2017 [facility] Digoxin 250 Mcg Tablet, Mcg Oral Daily Active 08/17/2017 [facility] Amlodipine Besylate 10 Mg Tablet, 10 Mg Oral Daily Active 08/09/2017 [facility] Hydralazine Hcl 25 Mg Tab, 25 Mg Oral Twice A Day Active 08/09/2017 [facility] Omeprazole/Sodium Bicarbonate (Zegerid 20 Mg Capsule) 1 Each Capsule, Active 08/09/2017 [facility] Terazosin Hcl 1 Mg Capsule, 1 Mg Oral Daily Active 08/09/2017 [facility] Bupropion Hcl 100 Mg Tablet Twice A Day Active [facility] Cholecalciferol (Vitamin D3) (Vitamin D3) 400 Unit Tablet Active [facility] Indapamide 1.25 Mg Tablet Use As Directed Active [facility] Insulin Aspart (Novolog) 100 Unit/1 Ml Cartridge Before Meals And At Bedtime Active [facility] Lantus Solastar Daily Active [facility] Levothyroxine Sodium 75 Mcg Tablet Daily Active [facility] Lisinopril 10 Mg Tablet Daily [facility] Meclizine Hcl 12.5 Mg Tablet As Needed [facility] Metoprolol Succinate 50 Mg Tab.er.24h Twice A Day Active [facility] Maynard-3 Fatty Acids/Fish Oil (Fish Oil 1,000 Mg Capsule) 1 Each Capsule [facility] Omeprazole 40 Mg Capsule. Active [facility] Pravastatin Sodium 20 Mg Tablet Bedtime Active [facility] Sertraline Hcl 50 Mg Tablet Daily Active [facility] Sitagliptin Phosphate (Januvia) 100 Mg Tablet Daily Active [facility] Allergies, Adverse Reactions, Alerts Substance Category Reaction Severity Reaction type Status Date Reported Comments Source Codeine Unknown Allergy to Substance Active 08/09/2017 [facility] codeine Assertion Drug allergy Active [facility] Immunizations Immunization Date Given Site Status Last Updated Comments Source Results Order Name Results Value Reference Range Date Interpretation Comments Source CHEM PANEL eGFR 44 mL/min/1.73m2 05/03/2018 Result Comment: The eGFR is calculated using the CKD-EPI formula. In most young, healthy individuals the eGFR will be >90 mL/min/1.73m2. The eGFR declines with age. An eGFR of 60-89 may be normal in some populations, particularly the elderly, for whom the CKD-EPI formula has not been extensively validated. Use of the eGFR is not recommended in the following populations: Individuals with unstable creatinine concentrations, including patients and those with serious co-morbid conditions. Patients with extremes in muscle mass or diet. The data above are obtained from the National Kidney Disease Education Program (NKDEP) which additionally recommends that when the eGFR is used in patients with extremes of body mass index for purposes of drug dosing, the eGFR should be multiplied by the estimated BMI. [facility] CHEM PANEL Potassium Lvl 4.4 meq/L 3.5 - 5.1 05/03/2018 [facility] CHEM PANEL Sodium Lvl 137 meq/L 135 - 145 05/03/2018 [facility] CHEM PANEL Chloride Lvl 106 meq/L 95 - 109 05/03/2018 [facility] CHEM PANEL CO2 22 meq/L 24 - 32 05/03/2018 [facility] CHEM PANEL AGAP 13.4 meq/L 10.0 - 20.0 05/03/2018 [facility] CHEM PANEL Calcium Lvl 8.5 mg/dL 8.5 - 10.5 05/03/2018 [facility] CHEM PANEL BUN 30 mg/dL 7 - 22 05/03/2018 [facility] CHEM PANEL Creatinine Lvl 1.16 mg/dL 0.50 - 1.40 05/03/2018 [facility] CHEM PANEL Glucose Lvl 218 mg/dL 70 - 99 05/03/2018 [facility] CHEM PANEL Magnesium Lvl 2.0 mg/dL 1.8 - 2.4 05/03/2018 [facility] HEMATOLOGY Basophils 0.2 % 0.0 - 1.0 05/03/2018 [facility] HEMATOLOGY Eosinophils 0.2 % 0.0 - 4.0 05/03/2018 [facility] HEMATOLOGY Neutrophils # 13.0 K/CMM 1.5 - 8.1 05/03/2018 [facility] HEMATOLOGY Monocytes 6.9 % 2.0 - 12.0 05/03/2018 [facility] HEMATOLOGY Monocytes # 1.1 K/CMM 0.0 - 0.8 05/03/2018 [facility] HEMATOLOGY Lymphocytes # 1.5 K/CMM 1.0 - 5.5 05/03/2018 [facility] HEMATOLOGY Lymphocytes 9.8 % 20.0 - 40.0 05/03/2018 [facility] HEMATOLOGY Segs 82.9 % 45.0 - 75.0 05/03/2018 [facility] HEMATOLOGY PTT 43.0 s 22.9 - 35.8 05/03/2018 [facility] HEMATOLOGY MPV 8.7 fL 7.4 - 10.4 05/03/2018 [facility] HEMATOLOGY MCH 30.7 pg 27.0 - 31.0 05/03/2018 [facility] HEMATOLOGY RDW 15.8 % 11.5 - 14.5 05/03/2018 [facility] HEMATOLOGY MCHC 32.6 g/dL 32.0 - 36.0 05/03/2018 [facility] HEMATOLOGY Platelet 280 K/CMM 133 - 450 05/03/2018 [facility] HEMATOLOGY RBC 3.89 M/CMM 4.20 - 5.40 05/03/2018 [facility] HEMATOLOGY WBC 15.6 K/CMM 3.7 - 10.4 05/03/2018 [facility] HEMATOLOGY Hgb 12.0 g/dL 12.0 - 16.0 05/03/2018 [facility] HEMATOLOGY MCV 94.4 fL 80.0 - 98.0 05/03/2018 [facility] HEMATOLOGY Hct 36.7 % 36.0 - 48.0 05/03/2018 [facility] HEMATOLOGY PT 21.1 s 12.0 - 14.7 05/03/2018 [facility] HEMATOLOGY INR 1.87 0.85 - 1.17 05/03/2018 [facility] CHEM PANEL Alk Phos 68 unit/L 39 - 136 05/02/2018 [facility] CHEM PANEL Bili Total 0.4 mg/dL 0.2 - 1.3 05/02/2018 [facility] CHEM PANEL Bili Direct null 0.0 - 0.3 05/02/2018 [facility] CHEM PANEL Bili Indirect Unable to Calculate 0.0 - 1.0 05/02/2018 [facility] CHEM PANEL Total Protein 7.2 g/dL 6.4 - 8.4 05/02/2018 [facility] CHEM PANEL Albumin Lvl 3.0 g/dL 3.5 - 5.0 05/02/2018 [facility] CHEM PANEL Globulin 4.2 g/dL 2.7 - 4.2 05/02/2018 [facility] CHEM PANEL A/G Ratio 0.7 0.7 - 1.6 05/02/2018 [facility] CHEM PANEL ALT 22 unit/L 0 - 65 05/02/2018 [facility] CHEM PANEL AST 29 unit/L 0 - 37 05/02/2018 [facility] HEMATOLOGY POC Activated Clotting Time 169 s 05/02/2018 [facility] BLOOD BANK RESULTS ABO/Rh O POS 05/02/2018 [facility] BLOOD BANK RESULTS Antibody Scrn Negative (05/02/18 6:13 AM) 05/02/2018 [facility] CHEM PANEL eGFR 65 mL/min/1.73m2 05/02/2018 Result Comment: The eGFR is calculated using the CKD-EPI formula. In most young, healthy individuals the eGFR will be >90 mL/min/1.73m2. The eGFR declines with age. An eGFR of 60-89 may be normal in some populations, particularly the elderly, for whom the CKD-EPI formula has not been extensively validated. Use of the eGFR is not recommended in the following populations: Individuals with unstable creatinine concentrations, including patients and those with serious co-morbid conditions. Patients with extremes in muscle mass or diet. The data above are obtained from the National Kidney Disease Education Program (NKDEP) which additionally recommends that when the eGFR is used in patients with extremes of body mass index for purposes of drug dosing, the eGFR should be multiplied by the estimated BMI. [facility] CHEM PANEL CO2 25 meq/L 24 - 32 05/02/2018 [facility] CHEM PANEL Calcium Lvl 9.2 mg/dL 8.5 - 10.5 05/02/2018 [facility] CHEM PANEL Chloride Lvl 108 meq/L 95 - 109 05/02/2018 [facility] CHEM PANEL Sodium Lvl 141 meq/L 135 - 145 05/02/2018 [facility] CHEM PANEL Potassium Lvl 4.2 meq/L 3.5 - 5.1 05/02/2018 [facility] CHEM PANEL Glucose Lvl 117 mg/dL 70 - 99 05/02/2018 [facility] CHEM PANEL Creatinine Lvl 0.84 mg/dL 0.50 - 1.40 05/02/2018 [facility] CHEM PANEL BUN 24 mg/dL 7 - 22 05/02/2018 [facility] CHEM PANEL AGAP 12.2 meq/L 10.0 - 20.0 05/02/2018 [facility] CHEM PANEL Magnesium Lvl 1.6 mg/dL 1.8 - 2.4 05/02/2018 [facility] HEMATOLOGY Segs 64.0 % 45.0 - 75.0 05/02/2018 [facility] HEMATOLOGY Eosinophils 3.8 % 0.0 - 4.0 05/02/2018 [facility] HEMATOLOGY Lymphocytes 19.9 % 20.0 - 40.0 05/02/2018 [facility] HEMATOLOGY Monocytes 11.5 % 2.0 - 12.0 05/02/2018 [facility] HEMATOLOGY Basophils # 0.1 K/CMM 0.0 - 0.2 05/02/2018 [facility] HEMATOLOGY Eosinophils # 0.4 K/CMM 0.0 - 0.5 05/02/2018 [facility] HEMATOLOGY Lymphocytes # 2.0 K/CMM 1.0 - 5.5 05/02/2018 [facility] HEMATOLOGY Monocytes # 1.2 K/CMM 0.0 - 0.8 05/02/2018 [facility] HEMATOLOGY Basophils 0.8 % 0.0 - 1.0 05/02/2018 [facility] HEMATOLOGY Neutrophils # 6.5 K/CMM 1.5 - 8.1 05/02/2018 [facility] HEMATOLOGY PT 24.0 s 12.0 - 14.7 05/02/2018 [facility] HEMATOLOGY INR 2.21 0.85 - 1.17 05/02/2018 [facility] HEMATOLOGY PTT 44.9 s 22.9 - 35.8 05/02/2018 [facility] HEMATOLOGY MPV 8.4 fL 7.4 - 10.4 05/02/2018 [facility] HEMATOLOGY MCH 31.3 pg 27.0 - 31.0 05/02/2018 [facility] HEMATOLOGY MCV 93.0 fL 80.0 - 98.0 05/02/2018 [facility] HEMATOLOGY Platelet 293 K/CMM 133 - 450 05/02/2018 [facility] HEMATOLOGY RDW 15.5 % 11.5 - 14.5 05/02/2018 [facility] HEMATOLOGY MCHC 33.6 g/dL 32.0 - 36.0 05/02/2018 [facility] HEMATOLOGY Hgb 13.5 g/dL 12.0 - 16.0 05/02/2018 [facility] HEMATOLOGY Hct 40.2 % 36.0 - 48.0 05/02/2018 [facility] HEMATOLOGY RBC 4.32 M/CMM 4.20 - 5.40 05/02/2018 [facility] HEMATOLOGY WBC 10.2 K/CMM 3.7 - 10.4 05/02/2018 [facility] Breast Mammo Diag GLENN incl CAD MA Breast Mammo Diag GLENN incl CAD MA BILATERAL DIGITAL DIAGNOSTIC MAMMOGRAM WITH CAD: 03/24/2018 CLINICAL: R92.8 Other Abnormal And Inconclusive Findings On Diagnostic Imaging Of Breast/R92.8 Other Abnormal And Inconclusive Findings On Diagnostic Imaging Of Breast. Current study was evaluated with a Computer Aided Detection (CAD) system. COMPARISON:Comparison is made to exams dated: 09/22/2017 mammogram, 03/28/2017 mammogram, 03/02/2017 mammogram, 03/02/2016 mammogram, 02/28/2015 mammogram, and 02/26/2014 mammogram - [facility]. TECHNIQUE: Mammographic views were obtained using digital acquisition. Current study was also evaluated with a Computer Aided Detection (CAD) system. FINDINGS: There are scattered fibroglandular densities in both breasts. The area of prior concern has resolved. There is a benign intramammary node in the left breast. There also are benign vascular calcifications and calcifications in both breasts. Additionally, there is a biopsy clip in the left breast. No significant masses, calcifications, or other findings are seen in either breast. There has been no significant interval change. IMPRESSION: BENIGN RECOMMENDATION:There is no mammographic evidence of malignancy. Return to annual mammogram screening schedule is recommended.(03/02/2019) This exam was interpreted at [id number] for Kenneth, SL 15. Professional services are provided by the [facility]. Marquis Ibrahim M.D. cm/penrad:03/24/2018 09:53:04 [employer](s): Jenny Jerez RT(R)(M), [facility] letter sent: BI-RADS 1/2 Mammogram BI-RADS: 2 Benign 03/24/2018 - - Read by: Ezequiel Chaidez MD Dictated Date/time: 03/24/18 09:53 Electronically Signed by: Ezequiel Chaidez MD 03/24/18 09:53 FINAL REPORT DANIEL[facility] Breast Mammo Diag UNI incl CAD MA Breast Mammo Diag UNI incl CAD MA UNILATERAL LEFT DIGITAL DIAGNOSTIC MAMMOGRAM WITH CAD: 09/22/2017 CLINICAL: Other Abnormal And Inconclusive Findings On Diagnostic Imaging Of Breast/R92.8. Current study was evaluated with a Computer Aided Detection (CAD) system. COMPARISON:Comparison is made to exams dated: 03/28/2017 mammogram, 03/02/2017 mammogram, 03/02/2016 mammogram, 02/28/2015 mammogram, 02/26/2014 mammogram, and 02/19/2013 mammogram - [facility]. TECHNIQUE: Mammographic views were obtained using digital acquisition. Current study was also evaluated with a Computer Aided Detection (CAD) system. FINDINGS: There are scattered fibroglandular densities in left breast. The density visible in the left breast on the 03/02/17 exam is not identified on today's exam. All other findings are stable without significant masses, calcifications, or other findings are seen in the breast. IMPRESSION: PROBABLY BENIGN RECOMMENDATION: No suspicious mammographic findings are seen on today's exam. Prior ultrasound was normal so a repeat US in not necessary. A follow-up mammogram in 6 months is recommended to demonstrate stability.(03/24/2018) Professional services are provided by [facility]. Marquis Ibrahim M.D. cm/:09/22/2017 14:35:59 [employer] Truck Driver(s): RT Beverley(R)(M), [facility] letter sent: BI-RADS 3 Mammogram BI-RADS: 3 Probably benign 09/22/2017 - - Read by: Ezequiel Chaidez MD Dictated Date/time: 09/22/17 14:35 Electronically Signed by: Ezequiel Chaidez MD 09/22/17 14:35 FINAL REPORT [facility] Capillary blood glucose measurement by glucometer (mass/volume) Capillary blood glucose measurement by glucometer (mass/volume) 140 70 - 120 08/17/2017 [facility] Automated blood basophil count (count/volume) Automated blood basophil count (count/volume) 0.1 0.0 - 0.1 08/17/2017 [facility] Automated blood basophil count as percentage of total leukocytes Automated blood basophil count as percentage of total leukocytes 0.5 0.0 - 1.0 08/17/2017 [facility] Automated blood eosinophil count Automated blood eosinophil count 0.3 0.0 - 0.4 08/17/2017 [facility] Automated blood eosinophil count as percentage of total leukocytes Automated blood eosinophil count as percentage of total leukocytes 2.2 0.0 - 6.0 08/17/2017 [facility] Automated blood hematocrit (volume fraction) Automated blood hematocrit (volume fraction) 32.9 34.2 - 44.1 08/17/2017 [facility] Automated blood lymphocyte count as percentage ot total leukocytes Automated blood lymphocyte count as percentage ot total leukocytes 22.8 18.0 - 39.1 08/17/2017 [facility] Automated blood monocyte count as percentage of total leukocytes Automated blood monocyte count as percentage of total leukocytes 9.4 4.4 - 11.3 08/17/2017 [facility] Automated blood neutrophil count Automated blood neutrophil count 7.5 2.1 - 6.9 08/17/2017 [facility] Automated blood platelet count (count/volume) Automated blood platelet count (count/volume) 427 140 - 360 08/17/2017 [facility] Automated blood segmented neutrophil count as percentage of total leukocytes Automated blood segmented neutrophil count as percentage of total leukocytes 64.6 38.7 - 80.0 08/17/2017 [facility] Automated erythrocyte mean corpuscular hemoglobin (mass per erythrocyte) Automated erythrocyte mean corpuscular hemoglobin (mass per erythrocyte) 25.0 28 - 32 08/17/2017 [facility] Automated erythrocyte mean corpuscular hemoglobin concentration measurement (mass/volume) Automated erythrocyte mean corpuscular hemoglobin concentration measurement (mass/volume) 31.3 31 - 35 08/17/2017 [facility] Automated erythrocyte mean corpuscular volume Automated erythrocyte mean corpuscular volume 79.9 81 - 99 08/17/2017 [facility] Blood erythrocytes automated count (number/volume) Blood erythrocytes automated count (number/volume) 4.12 3.6 - 5.1 08/17/2017 [facility] Blood hemoglobin measurement (moles/volume) Blood hemoglobin measurement (moles/volume) 10.3 12.0 - 16.0 08/17/2017 [facility] Blood leukocytes automated count (number/volume) Blood leukocytes automated count (number/volume) 11.53 4.8 - 10.8 08/17/2017 [facility] Blood lymphocytes count (number/volume) Blood lymphocytes count (number/volume) 2.6 1.0 - 3.2 08/17/2017 [facility] Blood monocytes automated count (number/volume) Blood monocytes automated count (number/volume) 1.1 0.2 - 0.8 08/17/2017 [facility] Estimated glomerular filtration rate (GFR) determination Estimated glomerular filtration rate (GFR) determination null 60 08/17/2017 [facility] Glucose measurement Glucose measurement 155 74 - 118 08/17/2017 [facility] Serum or plasma anion gap Serum or plasma anion gap 11.7 8 - 16 08/17/2017 [facility] Serum or plasma calcium measurement (mass/volume) Serum or plasma calcium measurement (mass/volume) 9.4 8.4 - 10.2 08/17/2017 [facility] Serum or plasma carbon dioxide, total measurement (moles/volume) Serum or plasma carbon dioxide, total measurement (moles/volume) 27 22 - 29 08/17/2017 [facility] Serum or plasma chloride measurement (moles/volume) Serum or plasma chloride measurement (moles/volume) 100 98 - 107 08/17/2017 [facility] Serum or plasma creatinine measurement (mass/volume) Serum or plasma creatinine measurement (mass/volume) 0.79 0.57 - 1.11 08/17/2017 [facility] Serum or plasma potassium measurement (moles/volume) Serum or plasma potassium measurement (moles/volume) 3.7 3.5 - 5.1 08/17/2017 [facility] Serum or plasma sodium measurement (moles/volume) Serum or plasma sodium measurement (moles/volume) 135 136 - 145 08/17/2017 [facility] Serum or plasma urea nitrogen measurement (mass/volume) Serum or plasma urea nitrogen measurement (mass/volume) 18 7 - 26 08/17/2017 [facility] Serum or plasma urea nitrogen/creatinine mass ratio Serum or plasma urea nitrogen/creatinine mass ratio 23 6 - 25 08/17/2017 [facility] Red Cell Distribution Width 16.4 11.7 - 14.4 08/17/2017 [facility] IM GRANULOCYTES % 0.5 0.0 - 1.0 08/17/2017 [facility] Absolute Immature Granulocyte (auto 0.06 0 - 0.1 08/17/2017 [facility] Blood lymphocytes variant count (number/volume) Blood lymphocytes variant count (number/volume) 3 08/12/2017 [facility] Blood platelets count by estimate (number/volume) Blood platelets count by estimate (number/volume) ADEQUATE 08/12/2017 [facility] Manual blood eosinophil count as percentage of total leukocytes Manual blood eosinophil count as percentage of total leukocytes 1 0 - 7 08/12/2017 [facility] Manual blood lymphocytes/100 leukocytes Manual blood lymphocytes/100 leukocytes 13 19 - 48 08/12/2017 [facility] Manual blood monocytes/100 leukocytes Manual blood monocytes/100 leukocytes 9 3.4 - 9.0 08/12/2017 [facility] Manual blood neutrophils/100 leukocytes Manual blood neutrophils/100 leukocytes 74 40 - 74 08/12/2017 [facility] Platelet morphology Platelet morphology NORMAL 08/12/2017 [facility] RBC morphology RBC morphology NORMAL 08/12/2017 [facility] Differential Total Cells Counted 100 08/12/2017 [facility] Manual blood myelocytes/100 leukocytes Manual blood myelocytes/100 leukocytes 1 0 - 0 08/11/2017 [facility] Serum or plasma uric acid measurement (mass/volume) Serum or plasma uric acid measurement (mass/volume) 9.0 2.6 - 8.0 08/11/2017 [facility] Clostridium difficile A and B toxin assay Clostridium difficile A and B toxin assay NEGATIVE NEGATIVE 08/10/2017 [facility] Blood anisocytosis detection by light microscopy Blood anisocytosis detection by light microscopy SLIGHT 08/10/2017 [facility] Blood hypochromia detection by light microscopy Blood hypochromia detection by light microscopy SLIGHT 08/10/2017 [facility] Blood poikilocytosis detection by light microscopy Blood poikilocytosis detection by light microscopy SLIGHT 08/10/2017 [facility] Manual blood band neutrophils form/100 leukocytes Manual blood band neutrophils form/100 leukocytes 1 08/10/2017 [facility] Plasma globulin measurement (mass/volume) Plasma globulin measurement (mass/volume) 3.7 2.3 - 3.5 08/10/2017 [facility] Serum or plasma alanine aminotransferase measurement (enzymatic activity/volume) Serum or plasma alanine aminotransferase measurement (enzymatic activity/volume) 9 0 - 55 08/10/2017 [facility] Serum or plasma albumin measurement (mass/volume) Serum or plasma albumin measurement (mass/volume) 2.7 3.5 - 5.0 08/10/2017 [facility] Serum or plasma albumin/globulin mass ratio Serum or plasma albumin/globulin mass ratio 0.7 0.8 - 2.0 08/10/2017 [facility] Serum or plasma alkaline phosphatase measurement (enzymatic activity/volume) Serum or plasma alkaline phosphatase measurement (enzymatic activity/volume) 76 40 - 150 08/10/2017 [facility] Serum or plasma digoxin measurement (mass/volume) Serum or plasma digoxin measurement (mass/volume) 2.35 0.8 - 2.0 08/10/2017 [facility] Serum or plasma protein measurement (mass/volume) Serum or plasma protein measurement (mass/volume) 6.4 6.5 - 8.1 08/10/2017 [facility] Serum or plasma total bilirubin measurement (mass/volume) Serum or plasma total bilirubin measurement (mass/volume) 0.6 0.2 - 1.2 08/10/2017 [facility] Aspartate Amino Transf (AST/SGOT) 11 5 - 34 08/10/2017 [facility] Blood culture Blood culture NO GROWTH AFTER 5 DAYS, FINAL REPORT 08/09/2017 [facility] Automated urine sediment leukocyte count by microscopy (number/high power field) Automated urine sediment leukocyte count by microscopy (number/high power field) null 0 - 5 08/09/2017 [facility] Bacteria detection in urine sediment by light microscopy Bacteria detection in urine sediment by light microscopy NONE NONE 08/09/2017 [facility] Coarse granular casts detection in urine sediment by light microscopy Coarse granular casts detection in urine sediment by light microscopy null 0 08/09/2017 [facility] Epithelial cells detection in urine sediment by light microscopy Epithelial cells detection in urine sediment by light microscopy FEW NONE 08/09/2017 [facility] Erythrocytes detection in urine sediment by light microscopy Erythrocytes detection in urine sediment by light microscopy NONE 0 - 5 08/09/2017 [facility] Hyaline casts detection in urine sediment by light microscopy Hyaline casts detection in urine sediment by light microscopy null 0 - 1 08/09/2017 [facility] Mucus detection in urine sediment by light microscopy Mucus detection in urine sediment by light microscopy RARE RARE 08/09/2017 [facility] Specific gravity of Urine by Test strip Specific gravity of Urine by Test strip 1.015 1.010 - 1.025 08/09/2017 [facility] Urine clarity Urine clarity SL CLOUDY CLEAR 08/09/2017 [facility] Urine color determination Urine color determination YELLOW YELLOW 08/09/2017 [facility] Urine erythrocytes detection Urine erythrocytes detection NEGATIVE NEGATIVE 08/09/2017 [facility] Urine glucose detection Urine glucose detection NEGATIVE NEGATIVE 08/09/2017 [facility] Urine ketones detection by automated test strip Urine ketones detection by automated test strip NEGATIVE NEGATIVE 08/09/2017 [facility] Urine leukocyte esterase detection by dipstick Urine leukocyte esterase detection by dipstick NEGATIVE NEGATIVE 08/09/2017 [facility] Urine nitrite detection Urine nitrite detection NEGATIVE NEGATIVE 08/09/2017 [facility] Urine pH measurement by automated test strip Urine pH measurement by automated test strip 7 5 - 7 08/09/2017 [facility] Urine protein measurement by test strip (mass/volume) Urine protein measurement by test strip (mass/volume) 1+ NEGATIVE 08/09/2017 [facility] Urine total bilirubin measurement (mass/volume) Urine total bilirubin measurement (mass/volume) 1+ NEGATIVE 08/09/2017 [facility] Urine urobilinogen measurement by test strip (mass/volume) Urine urobilinogen measurement by test strip (mass/volume) 1 0.2 - 1 08/09/2017 [facility] Activated partial thromboplastin time (aPTT) in platelet poor plasma bycoagulation assay Activated partial thromboplastin time (aPTT) in platelet poor plasma bycoagulation assay 33.8 23.8 - 35.5 08/09/2017 [facility] INR in Platelet poor plasma by Coagulation assay INR in Platelet poor plasma by Coagulation assay 1.55 08/09/2017 [facility] Prothrombin time (PT) in platelet poor plasma by coagulation assay Prothrombin time (PT) in platelet poor plasma by coagulation assay 17.5 11.9 - 14.5 08/09/2017 [facility] Serum or plasma creatine kinase MB measurement (mass/volume) Serum or plasma creatine kinase MB measurement (mass/volume) 1.80 0 - 5.0 08/09/2017 [facility] Serum or plasma creatine kinase measurement (enzymatic activity/volume) Serum or plasma creatine kinase measurement (enzymatic activity/volume) 61 29 - 168 08/09/2017 [facility] Troponin I measurement by highly sensitive enzyme immunoassay Troponin I measurement by highly sensitive enzyme immunoassay 0.008 0 - 0.300 08/09/2017 [facility] B-Type Natriuretic Peptide 497.4 0 - 100 08/09/2017 [facility] Chest 2 views DX Chest 2 views DX EXAM: XR CHEST 2 VIEWS DATE: 07/26/2017 2:19 PM CDT INDICATION: - R05 Cough COMPARISON: None TECHNIQUE: PA and lateral chest radiographs FINDINGS: Lungs are symmetrically well expanded. There are streaky lower lobe airspace opacities. The cardiomediastinal silhouette is mildly enlarged. Mild tortuosity of the descending thoracic aorta. No acute osseous abnormality is identified. There is mild elevation of the left hemidiaphragm. IMPRESSION: 1. Streaky bilateral lower lobe airspace opacities. Findings may represent atelectasis, although underlying pneumonia cannot be excluded. 2. Mild cardiomegaly. 07/26/2017 - - Read by: Cayden Estrella MD Dictated Date/time: 07/26/17 15:19 Electronically Signed by: Cayden Estrella MD 07/26/17 15:22 FINAL REPORT [facility] Free thyroxine index Free thyroxine index 2.0057 1.4 - 3.8 05/20/2017 [facility] Serum or plasma iron binding capacity measurement (mass/volume) Serum or plasma iron binding capacity measurement (mass/volume) 368 261 - 478 05/20/2017 [facility] Serum or plasma iron measurement (mass/volume) Serum or plasma iron measurement (mass/volume) 217 50 - 170 05/20/2017 [facility] Serum or plasma iron saturation measurement (mass fraction) Serum or plasma iron saturation measurement (mass fraction) 59 15 - 50 05/20/2017 [facility] Serum or plasma magnesium measurement (mass/volume) Serum or plasma magnesium measurement (mass/volume) 1.3 1.3 - 2.1 05/20/2017 [facility] Serum or plasma thyrotropin measurement by detection limit <=0.005 miu/l (units/volume) Serum or plasma thyrotropin measurement by detection limit <=0.005 miu/l (units/volume) 8.279 0.350 - 4.940 05/20/2017 [facility] Serum or plasma thyroxine (T4) measurement (mass/volume) Serum or plasma thyroxine (T4) measurement (mass/volume) 7.08 4.5 - 10.9 05/20/2017 [facility] Serum or plasma transferrin measurement (mass/volume) Serum or plasma transferrin measurement (mass/volume) 263 180 - 382 05/20/2017 [facility] Serum or plasma triiodothyronine resin uptake (T3RU) Serum or plasma triiodothyronine resin uptake (T3RU) 28.33 22.5 - 37.0 05/20/2017 [facility] Automated reticulocyte count as percentage of total erythrocytes Automated reticulocyte count as percentage of total erythrocytes 2.9 0.8 - 2.2 05/20/2017 [facility] Amorphous sediment detection in urine sediment by light microscopy Amorphous sediment detection in urine sediment by light microscopy MODERATE FEW 05/19/2017 [facility] Automated fine granular casts count in urine sediment by microscopy lowpower field (number/area) Automated fine granular casts count in urine sediment by microscopy lowpower field (number/area) null 0 05/19/2017 [facility] Phosphorus measurement Phosphorus measurement 3.5 2.3 - 4.7 05/19/2017 [facility] Serum or plasma cholesterol in HDL measurement (mass/volume) Serum or plasma cholesterol in HDL measurement (mass/volume) 44 40 - 60 05/19/2017 [facility] Serum or plasma cholesterol in LDL measurement (mass/volume) Serum or plasma cholesterol in LDL measurement (mass/volume) 54 60 - 130 05/19/2017 [facility] Serum or plasma cholesterol measurement (mass/volume) Serum or plasma cholesterol measurement (mass/volume) 168 0 - 199 05/19/2017 [facility] Serum or plasma total cholesterol/cholesterol in HDL mass ratio Serum or plasma total cholesterol/cholesterol in HDL mass ratio 3.8 3.0 - 3.6 05/19/2017 [facility] Serum or plasma triglyceride measurement (mass/volume) Serum or plasma triglyceride measurement (mass/volume) 352 0 - 149 05/19/2017 [facility] Breast Complete Uni US Breast Complete Uni US COMPLETE ULTRASOUND OF LEFT BREAST AND AXILLA: 03/28/2017 CLINICAL: /R92.8 Other Abnormal And Inconclusive Findings On Diagnostic Imaging Of Breast. Comparison is made to exams dated: 03/28/2017 mammogram, 03/02/2017 mammogram, 03/02/2016 mammogram, 02/28/2015 mammogram, 02/26/2014 mammogram, and 02/19/2013 mammogram - [facility]. Color flow and real-time ultrasound of the left breast and axilla were performed on the areas of interest. There is a benign lymph node in the left breast at 1 o'clock posterior depth. This correlates with mammography findings. However, only normal tissue is seen in the area of mammographic asymmetry. No abnormalities were seen sonographically in the left breast or the left axilla. IMPRESSION: PROBABLY BENIGN Normal tissue is seen in the area of mammographic asymmetry. Therefore a follow- up mammogram with possible ultrasound in 6 months is recommended to demonstrate stability. Professional services are provided by the [facility]. Marquis Ibrahim M.D. cm/:03/28/2017 11:15:17 Tank Truck Driver(s): Jenny Jerez RT(R)(M), [facility] letter sent: BI-RADS 3 Ultrasound BI-RADS: 3 Probably benign 03/28/2017 - - Read by: Ezequiel Chaidez MD Dictated Date/time: 03/28/17 11:15 Electronically Signed by: Ezequiel Chaidez MD 03/28/17 11:15 FINAL REPORT [facility] Breast Mammo Diag UNI incl CAD MA Breast Mammo Diag UNI incl CAD MA UNILATERAL LEFT DIGITAL DIAGNOSTIC MAMMOGRAM WITH CAD: 03/28/2017 CLINICAL: R92.8 Other Abnormal And Inconclusive Findings On Diagnostic Imaging Of Breast/R92.8 Other Abnormal And Inconclusive Findings On Diagnostic Imaging Of Breast. Current study was evaluated with a Computer Aided Detection (CAD) system. COMPARISON:Comparison is made to exams dated: 03/02/2017 mammogram, 03/02/2016 mammogram, 02/28/2015 mammogram, 02/26/2014 mammogram, 02/19/2013 mammogram, and 10/06/2012 mammogram - [facility]. TECHNIQUE: Mammographic views were obtained using digital acquisition. Current study was also evaluated with a Computer Aided Detection (CAD) system. FINDINGS: There are scattered fibroglandular densities in left breast. There is an equal density focal asymmetry in the left breast at 1 o'clock anterior depth 4.5 cm from the nipple. This finding becomes less prominent but appears to persist on spot images and may represent overlapping tissue. No other significant masses or calcifications are seen in the breast. IMPRESSION: INCOMPLETE: NEEDS ADDITIONAL IMAGING EVALUATION RECOMMENDATION:The equal density focal asymmetry in the left breast is indeterminate. An ultrasound is recommended. This exam was interpreted at [id number] for TED [facility]. [facility]. Marquis Ibrahim M.D., cm/penrad:03/28/2017 11:07:18 Tank Truck Driver(s): RT Tiffanie(R)(M), [facility] Mammogram BI-RADS: 0 Indeterminate 03/28/2017 - - Read by: Ezequiel Chaidez MD Dictated Date/time: 03/28/17 11:07 Electronically Signed by: Ezequiel Chaidez MD 03/28/17 11:07 FINAL REPORT [facility] Breast Mammo Scrn GLENN incl CAD MA Breast Mammo Scrn GLENN incl CAD MA BILATERAL DIGITAL SCREENING MAMMOGRAM WITH CAD: 03/02/2017 CLINICAL: Routine/Screening. Current study was evaluated with a Computer Aided Detection (CAD) system. COMPARISON:Comparison is made to exams dated: 03/02/2016 mammogram, 02/28/2015 mammogram, 02/26/2014 mammogram, 02/19/2013 mammogram, 10/06/2012 mammogram, and 03/01/2012 mammogram - [facility]. TECHNIQUE: Mammographic views were obtained using digital acquisition. Current study was also evaluated with a Computer Aided Detection (CAD) system. FINDINGS: There are scattered fibroglandular densities in both breasts. There is a focal asymmetry in the left breast at 1 o'clock anterior depth 4.5 cm from the nipple. No other significant masses, calcifications, or other findings are seen in either breast. IMPRESSION: INCOMPLETE: NEEDS ADDITIONAL IMAGING EVALUATION RECOMMENDATION:The focal asymmetry in the left breast is indeterminate. Diagnostic mammography with possible ultrasound are recommended. This exam was interpreted at [id number] for TED [facility]. [facility]. Marquis Ibrahim M.D., cm/samrad:03/03/2017 08:27:36 Tank Truck Driver(s): RT Tiffanie(R)(M), [facility] letter sent: BI-RADS 0 Mammogram BI-RADS: 0 Indeterminate 03/02/2017 - - Read by: Ezequiel Chaidez MD Dictated Date/time: 03/03/17 08:27 Electronically Signed by: Ezequiel Chaidez MD 03/03/17 08:27 FINAL REPORT [facility] Digital Mammo Screening [place] MA Digital Mammo Screening [place] MA - DIGITAL MAMMO SCREENING [place]ENN MA BILATERAL DIGITAL SCREENING MAMMOGRAM WITH CAD: 03/02/2016 CLINICAL: Routine. Current study was evaluated with a Computer Aided Detection (CAD) system. Comparison is made to exams dated: 02/28/2015 mammogram, 02/26/2014 mammogram, 02/19/2013 mammogram, 10/06/2012 mammogram, 03/01/2012 mammogram and 02/18/2012 mammogram - [facility]. There are scattered fibroglandular densities in both breasts. There are benign vascular calcifications in both breasts. There also are benign scattered calcifications in both breasts. No significant masses, calcifications, or other findings are seen in either breast. There has been no significant interval change. IMPRESSION: BENIGN There is no mammographic evidence of malignancy. A 1 year screening mammogram is recommended. Professional services are provided by the [facility]. Marquis Ibrahim M.D. cm/penrad:03/02/2016 11:40:21 Tank Truck Driver: Carol VALLE(Joesph)(Shmuel), [facility] This exam was dictated and interpreted by [id number] for BROWN Cash 15. letter sent: Normal exam Mammogram BI-RADS: 2 Benign 03/02/2016 - - Read by: Ezequiel Chaidez MD Dictated Date/time: 03/02/16 11:40 Electronically Signed by: Ezequiel Chaidez MD 03/02/16 11:40 FINAL REPORT [facility] Digital Mammo Screening [place] MA Digital Mammo Screening [place] MA - DIGITAL MAMMO SCREENING [place] MA BILATERAL DIGITAL SCREENING MAMMOGRAM WITH CAD: 02/28/2015 CLINICAL: Routine. Current study was evaluated with a Computer Aided Detection (CAD) system. Comparison is made to exams dated: 02/26/2014 mammogram, 02/19/2013 mammogram, 10/06/2012 mammogram, 03/01/2012 mammogram, 02/18/2012 mammogram and 01/15/2011 mammogram - [facility]. There are scattered fibroglandular densities in both breasts. There are benign vascular calcifications and calcifications in both breasts. There also is a benign density in the left breast. No significant masses, calcifications, or other findings are seen in either breast. There has been no significant interval change. IMPRESSION: BENIGN There is no mammographic evidence of malignancy. A 1 year screening mammogram is recommended. Mecca Ivey M.D. 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 letter sent: Normal exam Mammogram BI-RADS: 2 Benign 02/28/2015 - - Read by: Mecca Ivey MD Dictated Date/time: 02/28/15 16:18 Electronically Signed by: Mecca Ivey MD 02/28/15 16:18 FINAL REPORT [facility] Vital Signs Vital Sign Value Date Comments Source Temperature Oral (F) 98.7 F 05/03/2018 [facility] Systolic (mm Hg) 114 05/03/2018 [facility] Diastolic (mm Hg) 59 05/03/2018 [facility] Systolic (mm Hg) 126 05/03/2018 [facility] Diastolic (mm Hg) 60 05/03/2018 [facility] Temperature Oral (F) 98 F 05/03/2018 [facility] Systolic (mm Hg) 110 05/03/2018 [facility] Diastolic (mm Hg) 53 05/03/2018 [facility] Respitory Rate 14 05/02/2018 [facility] Respitory Rate 14 05/02/2018 [facility] Respitory Rate 14 05/02/2018 [facility] Temperature Oral (F) 97.8 F 05/02/2018 [facility] BMI Calculated 30.92 05/02/2018 [facility] Weight 89.545 05/02/2018 [facility] Height 170.18 cm 05/02/2018 [facility] Systolic (mm Hg) 172 05/01/2018 [facility] Diastolic (mm Hg) 78 05/01/2018 [facility] Respitory Rate 29 05/01/2018 [facility] Respitory Rate 35 05/01/2018 [facility] Systolic (mm Hg) 183 05/01/2018 [facility] Diastolic (mm Hg) 86 05/01/2018 [facility] Respitory Rate 33 05/01/2018 [facility] Systolic (mm Hg) 164 05/01/2018 [facility] Diastolic (mm Hg) 67 05/01/2018 [facility] Weight 89.545 05/01/2018 [facility] BMI Calculated 30.92 05/01/2018 [facility] Height 170.18 cm 05/01/2018 [facility] Systolic (mm Hg) 159 09/23/2017 [facility] Diastolic (mm Hg) 86 09/23/2017 [facility] Respitory Rate 22 09/23/2017 [facility] Systolic (mm Hg) 163 09/23/2017 [facility] Diastolic (mm Hg) 95 09/23/2017 [facility] Respitory Rate 22 09/23/2017 [facility] Systolic (mm Hg) 175 09/23/2017 [facility] Diastolic (mm Hg) 80 09/23/2017 [facility] Respitory Rate 22 09/23/2017 [facility] Weight 84.545 09/23/2017 [facility] BMI Calculated 31.02 09/23/2017 [facility] Height 165.1 cm 09/23/2017 [facility] Encounters Location Location Details Encounter Type Encounter Number Reason For Visit Attending Provider ADM Date DC Date Status Source [facility] [id number] Qian Braswell 11/07/2013 11/08/2013 [facility] [id number] Qian Braswell 02/26/2014 02/27/2014 [facility] [id number] Qian Braswell 02/28/2015 03/01/2015 [facility] [id number] Qian Braswell 03/02/2016 03/03/2016 [facility] [id number] Qian Braswell 03/02/2017 03/03/2017 [facility] [id number] Qian Braswell 03/28/2017 03/29/2017 [facility] Discharged Inpatient [id number] QIAN BRASWELL MD 05/19/2017 05/21/2017 [facility] [place] Out[facility] [id number] Fly Mayer 07/26/2017 07/27/2017 [facility] [place] Discharged Inpatient [id number] QIAN BRASWELL MD 08/09/2017 08/17/2017 [facility] [place] [facility] [id number] Qian Braswell 09/22/2017 09/23/2017 [facility] Outpatient [id number] Camilla Madera 09/23/2017 09/24/2017 [facility] Outpatient [id number] Maricel Ramires 09/26/2017 09/26/2017 [facility] Bedded Outpatient [id number] Maricelxochilt Ramires 09/27/2017 09/27/2017 [facility] [place] [facility] [id number] Qian Braswell 03/24/2018 03/25/2018 [facility] Outpatient [id number] Jenniferarnulfo Madera 05/01/2018 05/02/2018 [facility] Bedded Outpatient [id number] Maricelakshat Ramires 05/02/2018 05/03/2018 [facility] Procedures Procedure Code Date Perfomer Comments Source CT of abdomen and pelvis without contrast [id number] 08/09/2017 [facility] DENOMINATIONAL OF CARDIAC RHYTHM, SINGLE [id number] 05/20/2017 [facility] Appendectomy [id number] [facility] Cataract extraction [id number] [facility] Catheterization of both left and right heart [id number] [facility] Cholecystectomy [id number] [facility] Hysterectomy [id number] [facility] Tonsillectomy [id number] [facility] Transesophageal echocardiogram [id number] [facility] Appendectomy [id number] [facility] Cataract extraction [id number] [facility] Catheterization of both left and right heart [id number] [facility] Cholecystectomy [id number] [facility] Hysterectomy [id number] [facility] Tonsillectomy [id number] [facility] Transesophageal echocardiogram [id number] [facility]
--- OUTSIDE RECORDS SUMMARY | 2018-07-18 16:20 | XMS REPORT | Summary of Care ---
Author Author [facility] Organization [facility] Address Unknown Phone Unavailable Encounter YRIS Obregon(MAGGIE) [id number] Date(s): 09/23/17 - 09/23/17 [facility] [address] [place] [address]- Encounter Diagnosis Encounter for general adult medical examination without abnormal findings (Final) - Encounter for immunization (Final) - Hypercalcemia (Final) - Hypothyroidism, unspecified (Final) - Gastro-esophageal reflux disease without esophagitis (Final) - Low back pain (Final) - Nonrheumatic mitral (valve) insufficiency (Final) - Pain in left shoulder (Final) - Other abnormal and inconclusive findings on diagnostic imaging of breast (Final) - 09/30/17 Acute upper respiratory infection, unspecified (Final) - Urinary tract infection, site not specified (Final) - Acute atopic conjunctivitis, bilateral (Final) - Other seasonal allergic rhinitis (Final) - Contusion of unspecified upper arm, initial encounter (Final) - Unspecified atrial fibrillation (Final) - Chronic atrial fibrillation (Final) - Type 2 diabetes mellitus with diabetic chronic kidney disease (Final) - Dyspnea, unspecified (Final) - Essential (primary) hypertension (Final) - Discharge Disposition: Home or Self Care Attending Physician: Camilla Madera MD Referring Physician: Camilla Madera MD Vital Signs 1 2 3 Most recent to oldest [Reference Range]: 165.1 cm (09/23/17 8:25 AM) Height 159/86 mmHg *HI* (09/23/17 12:00 PM) 163/95 mmHg *HI* (09/23/17 11:55 AM) 175/80 mmHg *HI* (09/23/17 11:50 AM) Blood Pressure [90-140/60-90 mmHg] 22 BRMIN *HI* (09/23/17 12:00 PM) 22 BRMIN *HI* (09/23/17 11:55 AM) 22 BRMIN *HI* (09/23/17 11:50 AM) Respiratory Rate [14-20 BRMIN] 84.545 kg (09/23/17 8:25 AM) Weight 31.02 m2 (09/23/17 8:25 AM) Body Mass Index Problem List Condition Effective Dates Status Health Status Informant Anemia(Confirmed) Resolved Atrial Resolved fibrillation(Confirm ed) [facility] Resolved palsy(Confirmed) Diabetes(Confirmed) Resolved Heart Resolved failure(Confirmed) HTN Resolved (hypertension)(Confi rmed) Allergies, Adverse Reactions, Alerts Substance Reaction Severity Status codeine Active NKDA Active Medications allopurinol 100 mg oral tablet 100 mg=1 tab, PO, Daily, # 60 tab, 0 Refill(s) Start Date: 09/23/17 Status: Ordered buPROPion 100 mg, PO, BID, 0 Refill(s) Start Date: 09/23/17 Status: Ordered diltiazem 30 mg, PO, TID, 0 Refill(s) Start Date: 09/23/17 Status: Ordered indapamide 1.25 mg oral tablet 1.25 mg=1 tab, PO, QAM, # 30 tab, 0 Refill(s) Start Date: 09/23/17 Status: Ordered Januvia 50 mg oral tablet 50 mg=1 tab, PO, Daily, # 90 tab, 1 Refill(s) Start Date: 09/23/17 Stop Date: 12/22/17 Status: Ordered Lantus Solostar Pen 100 units/mL subcutaneous solution See Instructions, 0 Refill(s) Start Date: 09/23/17 Status: Ordered levothyroxine 175 mcg (0.175 mg) oral tablet 175 microgram=1 tab, PO, Daily, # 30 tab, 0 Refill(s) Start Date: 09/23/17 Status: Ordered lisinopril 10 mg oral tablet 10 mg=1 tab, PO, Daily, # 30 tab, 0 Refill(s) Start Date: 09/23/17 Status: Ordered meclizine 25 mg oral tablet, chewable 25 mg=1 tab, CHEW, TID, PRN for motion sickness, # 60 tab, 0 Refill(s) Start Date: 09/23/17 Stop Date: 10/13/17 Status: Ordered metoprolol tartrate 100 mg oral tablet 100 mg=1 tab, PO, BID, # 60 tab, 0 Refill(s) Start Date: 09/23/17 Status: Ordered NovoLOG 100 units/mL See Special Instructions, SUB-Q, TID-Before Meals, Inject [address], lunch, and dinner. Do not take at bedtime unless instructed by your doctor, vial, 0 Refill(s) Start Date: 09/23/17 Status: Ordered pravastatin 20 mg oral tablet 20 mg=1 tab, PO, Bedtime, # 30 tab, 0 Refill(s) Start Date: 09/23/17 Status: Ordered sertraline 50 mg oral tablet 50 mg=1 tab, PO, Daily, # 30 tab, 0 Refill(s) Start Date: 09/23/17 Status: Ordered Vitamin D3 1000 intl units oral capsule 1,000 IntlUnit=1 cap, PO, Daily, # 100 cap, 0 Refill(s) Start Date: 09/23/17 Status: Ordered Zegerid 20 mg-1100 mg oral capsule 1 tab, PO, Daily, 0 Refill(s) Start Date: 09/23/17 Status: Ordered Results No data available for this section Immunizations No data available for this section Procedures Procedure Date Related Diagnosis Body Site Status Appendectomy Completed Cataract extraction Completed Catheterization of both left and right heart Completed Cholecystectomy Completed Hysterectomy Completed Tonsillectomy Completed Transesophageal echocardiogram Completed Social History Social History Type Response Substance Abuse Use: None. Exercise 1 Employment/School Status: Retired. 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 Highest education level: High school. Alcohol Never Smoking Status Never smoker; Previous treatment: None; Exposure to Tobacco Smoke None; Cigarette Smoking Last 365 Days No; Reg Smoking Cessation Counseling No entered on: 01/11/18 1"NO" Assessment and Plan No data available for this section
--- OUTSIDE RECORDS SUMMARY | 2018-07-18 16:20 | XMS REPORT | Summary of Care ---
Author Author [facility] [place] Organization [facility] [place] Address Unknown Phone Unavailable Encounter HQ Encntr_alias(FIN) [id number] Date(s): 03/02/17 - 03/02/17 [facility] [place] [address] [place] [address] [phone] Encounter Diagnosis Encounter for screening mammogram for malignant neoplasm of breast (Final) - Discharge Disposition: Home or Self Care Attending Physician: Owen Braswell MD Vital Signs No data available for this section Problem List No data available for this section Allergies, Adverse Reactions, Alerts No data available for this section Medications No data available for this section Results No data available for this section Immunizations No data available for this section Procedures No data available for this section Social History No data available for this section Assessment and Plan No data available for this section
--- OUTSIDE RECORDS SUMMARY | 2018-07-18 16:20 | XMS REPORT | Summary of Care ---
Author Author [facility] Organization [facility] Address Unknown Phone Unavailable Encounter YRIS Obregon(MAGGIE) [id number] Date(s): 09/26/17 - 09/26/17 [facility] [address] [facility] provided by [facility] [place] [address]- Attending Physician: Maricel Ramires MD Referring Physician: Maricel Ramires MD Vital Signs No data available for [...] 1 Employment/School Status: Retired. 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 Highest education level: High school. Alcohol Never Smoking Status Never smoker; Previous treatment: None; Exposure to Tobacco Smoke None; Cigarette Smoking Last 365 Days No; Reg Smoking Cessation Counseling No entered on: 01/11/18 1"NO" Assessment and Plan No data available for this section
--- OUTSIDE RECORDS SUMMARY | 2018-07-18 16:21 | XMS REPORT | Summary of Care ---
Author Author [facility] [place] Organization [facility] [place] Address Unknown Phone Unavailable Encounter HQ Encntr_aliwilmer([place]CL[place]) [id number] Date(s): 03/02/16 - 03/02/16 [facility] [place] [address] [place] [address] [phone] Discharge Disposition: Home or Self Care Attending [...]
--- OUTSIDE RECORDS SUMMARY | 2018-07-18 16:21 | XMS REPORT | Summary of Care ---
Author Author [facility] [place] Organization [facility] [place] Address Unknown Phone Unavailable Encounter HQ Encntr_alias(FIN) [id number] Date(s): 03/02/17 - 03/02/17 [facility] [place] [address] [place], [place] [address] [phone] Encounter Diagnosis Encounter for screening mammogram for malignant neoplasm of breast (Final) - 03/03/17 Discharge Disposition: Home or Self Care Attending [...]
--- OUTSIDE RECORDS SUMMARY | 2018-07-18 16:21 | XMS REPORT | Summary of Care ---
Author Author [facility] [place] Organization [facility] [place] Address Unknown Phone Unavailable Encounter HQ Maricarmenntr_rowena([facility]) [id number] Date(s): 02/28/15 - 02/28/15 [facility] [place] [address] [facility] [place], [place] [address] [phone] Discharge Disposition: Home Attending Physician: Owen Braswell MD Vital Signs [...]
--- OUTSIDE RECORDS SUMMARY | 2018-07-18 16:21 | XMS REPORT | Summary of Care ---
Author Author [facility] [place] Organization [facility] [place] Address Unknown Phone Unavailable Encounter HQ Encntr_alias(FIN) [id number] Date(s): 03/02/17 - 03/02/17 [facility] [place] [address] [place], [place] [address] [phone] Encounter Diagnosis Encounter for screening mammogram for [...]
--- OUTSIDE RECORDS SUMMARY | 2018-07-18 16:21 | XMS REPORT | Summary of Care ---
Author Author [facility] Organization [facility] Address Unknown Phone Unavailable Encounter YRIS Obregon(MAGGIE) [id number] Date(s): 05/02/18 - 05/03/18 [facility] [address] [facility] provided by [employer] [facility] [employer] [place] [address]- Discharge Disposition: Home or Self Care Attending Physician: Maricel Ramires MD Admitting Physician: Maricel Ramires MD Referring Physician: Maricel Ramires MD Vital Signs 1 2 3 Most recent to oldest [Reference Range]: 170.18 cm (05/02/18 6:10 AM) Height 98.7 DegF (05/03/18 7:32 AM) 98 DegF (05/03/18 3:00 AM) 97.8 DegF (05/02/18 6:37 AM) Temperature Oral [96.4-99.1 DegF] 114/59 mmHg (05/03/18 7:32 AM) 126/60 mmHg (05/03/18 5:00 AM) 110/53 mmHg (05/03/18 3:00 AM) Blood Pressure [90-140/60-90 mmHg] 14 BRMIN (05/02/18 5:23 PM) 14 BRMIN (05/02/18 2:50 PM) 14 BRMIN (05/02/18 2:35 PM) Respiratory Rate [14-20 BRMIN] 89.545 kg (05/02/18 6:10 AM) Weight 30.92 m2 (05/02/18 6:10 AM) Body Mass Index Problem List Condition Effective Dates Status Health Status Informant Anemia(Confirmed) Resolved Atrial Resolved fibrillation(Confirm ed) [facility] Resolved palsy(Confirmed) Diabetes(Confirmed) Resolved Heart Resolved failure(Confirmed) HTN Resolved (hypertension)(Confi rmed) Allergies, Adverse Reactions, Alerts Substance Reaction Severity Status codeine Active Medications allopurinol 100 mg, 1 tab, Route: PO, Drug form: TAB, Daily, Dosing Weight 89.545, kg, Start date: 05/03/18 9:00:00 CDT, Duration: 30 day, Stop date: 06/01/18 9:00:00 CDT Notes: (Same as: Zyloprim) Start Date: 05/03/18 Stop Date: 05/03/18 Status: Discontinued ANES flumazenil 0.2 mg, 2 mL, Route: IVP, Drug form: INJ, PRN, Dosing Weight 89.545, kg, PRN Luis zodiazepine Reversal, Initial dose, Start date: 05/02/18 10:29:00 CDT, Duration: 1 day, Stop date: 05/03/18 10:32:00 CDT Notes: (Same as: Romazicon) Start Date: 05/02/18 Stop Date: 05/03/18 Status: Completed ANES naloxone 0.4 mg, 1 mL, Route: IVP, Drug form: INJ, Q2MIN, Dosing Weight 89.545, kg, PRN N arcotic Reversal, Start date: 05/02/18 10:29:00 CDT, Duration: 8 doses or times, Stop date: 05/03/18 10:33:00 CDT Notes: Same as Narcan Start Date: 05/02/18 Stop Date: 05/03/18 Status: Completed ANES ondansetron 4 mg, 2 mL, Route: IVP, Drug form: INJ, ONCE, Dosing Weight 89.545, kg, PRN Naus ea & Vomiting, Start date: 05/02/18 10:29:00 CDT Notes: (Same as: Zofran) MEDICATION WASTE Product Size: 4 mgProduct Was hay: ___ mg Start Date: 05/02/18 Stop Date: 05/03/18 Status: Discontinued buPROPion 100 mg, 1 tab, Route: PO, Drug form: TAB, BID, Dosing Weight 89.545, kg, Start d ate: 05/02/18 17:00:00 CDT, Duration: 30 day, Stop date: 06/01/18 9:00:00 CDT Notes: (Same As: Wellbutrin) Start Date: 05/02/18 Stop Date: 05/03/18 Status: Discontinued dexamethasone (ANES) Route: IV, Drug form: INJ, ONCE, Stop date: 05/02/18 10:18:00 CDT Start Date: 05/02/18 Stop Date: 05/02/18 Status: Completed Dextrose 50% Syringe 25 gm, 50 mL, Route: IVP, Drug Form: INJ, Dosing Weight 89.545, kg, PRN, PRN Blo od Glucose Results, Start date: 05/02/18 17:34:00 CDT, Duration: 30 day, Stop da te: 06/01/18 17:33:00 CDT Start Date: 05/02/18 Stop Date: 05/03/18 Status: Discontinued Dextrose 50% Syringe 12.5 gm, 25 mL, Route: IVP, Drug Form: INJ, Dosing Weight 89.545, kg, PRN, PRN B lood Glucose Results, Start date: 05/02/18 17:34:00 CDT, Duration: 30 day, Stop date: 06/01/18 17:33:00 CDT Start Date: 05/02/18 Stop Date: 05/03/18 Status: Discontinued diltiazem 240 mg, 1 cap, Route: PO, Drug form: ERCAP, Daily, Dosing Weight 89.545, kg, Sta rt date: 05/03/18 9:00:00 CDT, Duration: 30 day, Stop date: 06/01/18 9:00:00 CDT Notes: (Same as: Cardizem CD) Before meals. DO NOT CRUSH. Start Date: 05/03/18 Stop Date: 05/03/18 Status: Discontinued dronedarone 400 mg oral tablet 400 mg=1 tab, PO, BID, # 60 tab, 3 Refill(s) Start Date: 05/03/18 Status: Ordered fentaNYL (ANES) Route: IV, Drug form: INJ, ONCE, Stop date: 05/02/18 8:30:00 CDT Start Date: 05/02/18 Stop Date: 05/02/18 Status: Completed Fish Oil 3,000 mg, 3 cap, Route: PO, Drug form: CAP, Daily, Dosing Weight 89.545, kg, Sta rt date: 05/03/18 9:00:00 CDT, Duration: 30 day, Stop date: 06/01/18 9:00:00 CDT Notes: (Same as: MaxEPA, [place] 3 fish oil )Non-Formulary Drug Start Date: 05/03/18 Stop Date: 05/03/18 Status: Discontinued glucagon 1 mg, Route: IM, Drug form: PDR/INJ, PRN, Dosing Weight 89.545, kg, PRN Blood Gl ucose Results, Start date: 05/02/18 17:34:00 CDT, Duration: 30 day, Stop date: 0 06/01/18 17:33:00 CDT Start Date: 05/02/18 Stop Date: 05/03/18 Status: Discontinued glycopyrrolate (ANES) Route: IV, Drug form: INJ, ONCE, Stop date: 05/02/18 10:18:00 CDT Start Date: 05/02/18 Stop Date: 05/02/18 Status: Completed heparin (ANES) Route: IV, Drug form: INJ, ONCE, Stop date: 05/02/18 9:15:00 CDT Start Date: 05/02/18 Stop Date: 05/02/18 Status: Completed Insulin regular 10 unit, 0.1 mL, Route: SUB-Q, Drug form: SOLN, TID-Before Meals, Dosing Weight 89.545, kg, PRN Blood Glucose Results, Start date: 05/02/18 17:34:00 CDT, Durati on: 30 day, Stop date: 06/01/18 17:33:00 CDT Notes: (Same as: Humulin R) Roll in palms of hands gently; Do not shake vigorou sly. "single patient use only"(Restricted to patients requiring a dose > 60 units)WASTE: F/P - Black; E - Municipal Trash Bin Stable for 28 days at room temperatureExpires in days from Date Start Date: 05/02/18 Stop Date: 05/03/18 Status: Discontinued Insulin regular 6 unit, 0.06 mL, Route: SUB-Q, Drug form: SOLN, TID-Before Meals, Dosing Weight 89.545, kg, PRN Blood Glucose Results, Start date: 05/02/18 17:34:00 CDT, Durati on: 30 day, Stop date: 06/01/18 17:33:00 CDT Notes: (Same as: Humulin R) Roll in palms of hands gently; Do not shake vigorou sly. "single patient use only"(Restricted to patients requiring a dose > 60 units)WASTE: F/P - Black; E - Municipal Trash Bin Stable for 28 days at room temperatureExpires in days from Date Start Date: 05/02/18 Stop Date: 05/03/18 Status: Discontinued Insulin regular 8 unit, 0.08 mL, Route: SUB-Q, Drug form: SOLN, TID-Before Meals, Dosing Weight 89.545, kg, PRN Blood Glucose Results, Start date: 05/02/18 17:34:00 CDT, Durati on: 30 day, Stop date: 06/01/18 17:33:00 CDT Notes: (Same as: Humulin R) Roll in palms of hands gently; Do not shake vigorou sly. "single patient use only"(Restricted to patients requiring a dose > 60 units)WASTE: F/P - Black; E - Municipal Trash Bin Stable for 28 days at room temperatureExpires in days from Date Start Date: 05/02/18 Stop Date: 05/03/18 Status: Discontinued Insulin regular 4 unit, 0.04 mL, Route: SUB-Q, Drug form: SOLN, TID-Before Meals, Dosing Weight 89.545, kg, PRN Blood Glucose Results, Start date: 05/02/18 17:34:00 CDT, Durati on: 30 day, Stop date: 06/01/18 17:33:00 CDT Notes: (Same as: Humulin R) Roll in palms of hands gently; Do not shake vigorou sly. "single patient use only"(Restricted to patients requiring a dose > 60 units)WASTE: F/P - Black; E - Municipal Trash Bin Stable for 28 days at room temperatureExpires in days from Date Start Date: 05/02/18 Stop Date: 05/03/18 Status: Discontinued Insulin regular 2 unit, 0.02 mL, Route: SUB-Q, Drug form: SOLN, TID-Before Meals, Dosing Weight 89.545, kg, PRN Blood Glucose Results, Start date: 05/02/18 17:34:00 CDT, Durati on: 30 day, Stop date: 06/01/18 17:33:00 CDT Notes: (Same as: Humulin R) Roll in palms of hands gently; Do not shake vigorou sly. "single patient use only"(Restricted to patients requiring a dose > 60 units)WASTE: F/P - Black; E - Municipal Trash Bin Stable for 28 days at room temperatureExpires in days from Date Start Date: 05/02/18 Stop Date: 05/03/18 Status: Discontinued Januvia 50 mg, 1 tab, Route: PO, Drug form: TAB, Daily, Dosing Weight 89.545, kg, Start date: 05/03/18 9:00:00 CDT, Duration: 30 day, Stop date: 06/01/18 9:00:00 CDT Notes: Same as Januvia Start Date: 05/03/18 Stop Date: 05/03/18 Status: Discontinued Levothroid 100 microgram, 1 tab, Route: PO, Drug form: TAB, Q630AM, Start date: 05/03/18 6: 30:00 CDT, Duration: 30 day, Stop date: 06/01/18 6:30:00 CDT Notes: Take 1 hour before or 2 hours after meal; Enteral feeds may interefere wi th the absorption of this medication. (Same as:Levothroid, Synthroid) Start Date: 05/03/18 Stop Date: 05/03/18 Status: Discontinued levothyroxine 175 microgram, Route: PO, Drug form: TAB, Daily, Dosing Weight 89.545, kg, Start date: 05/03/18 9:00:00 CDT, Duration: 30 day, Stop date: 06/01/18 9:00:00 CDT Start Date: 05/03/18 Stop Date: 05/02/18 Status: Discontinued lidocaine (ANES) Route: IV, Drug form: INJ, ONCE, Stop date: 05/02/18 8:30:00 CDT Start Date: 05/02/18 Stop Date: 05/02/18 Status: Completed lisinopril 10 mg, 1 tab, Route: PO, Drug form: TAB, Daily, Dosing Weight 89.545, kg, Start date: 05/03/18 9:00:00 CDT, Duration: 30 day, Stop date: 06/01/18 9:00:00 CDT Notes: (Same as: Prinivil, Zestril) Start Date: 05/03/18 Stop Date: 05/03/18 Status: Discontinued magnesium sulfate 2 gm in Water 50 ml 2 gm, 50 mL, Route: IVPB, Drug form: INJ, ONCE, Dosing Weight 89.545, kg, Start date: 05/02/18 7:21:00 CDT, Stop date: 05/02/18 7:21:00 CDT Notes: WASTE: F/P - Sink; E - Municipal Trash Bin Start Date: 05/02/18 Stop Date: 05/02/18 Status: Completed morphine Sulfate 2 mg, 0.5 mL, Route: IVP, Drug form: SOLN, ONCE, Dosing Weight 89.545, kg, PRN P ain Score 7-10, Start date: 05/02/18 10:17:00 CDT Notes: (Same as:MORPhine Sulfate) Start Date: 05/02/18 Stop Date: 05/03/18 Status: Discontinued Multaq 400 mg, 1 tab, Route: PO, Drug form: TAB, BID, Dosing Weight 89.545, kg, Start d ate: 05/02/18 17:00:00 CDT, Duration: 30 day, Stop date: 06/01/18 9:00:00 CDT Notes: Same as: Multaq Start Date: 05/02/18 Stop Date: 05/03/18 Status: Discontinued neostigmine (ANES) Route: IV, Drug form: INJ, ONCE, Stop date: 05/02/18 10:18:00 CDT Start Date: 05/02/18 Stop Date: 05/02/18 Status: Completed normal saline 0.9% IV 1,000 mL 1,000 mL, Rate: 100 ml/hr, Infuse over: 10 hr, Route: IV, Dosing Weight 89.545 k g, Total Volume: 1,000, Start date: 05/02/18 6:10:00 CDT, Duration: 30 day, Stop date: 06/01/18 6:09:00 CDT, 2.08, m2 Start Date: 05/02/18 Stop Date: 05/03/18 Status: Discontinued ondansetron (ANES) Route: IV, Drug form: INJ, ONCE, Stop date: 05/02/18 10:18:00 CDT Start Date: 05/02/18 Stop Date: 05/02/18 Status: Completed pantoprazole 40 mg, 1 tab, Route: PO, Drug form: ECTAB, Daily, Dosing Weight 89.545, kg, Star t date: 05/03/18 9:00:00 CDT, Duration: 14 day, Stop date: 05/16/18 9:00:00 CDT Notes: Tablet should not be chewed or crushed.(Same as: Protonix) Start Date: 05/03/18 Stop Date: 05/03/18 Status: Discontinued pantoprazole 40 mg oral enteric coated tablet 40 mg=1 tab, PO, Daily, # 30 tab, 0 Refill(s) Start Date: 05/03/18 Status: Ordered pravastatin 20 mg, 1 tab, Route: PO, Drug form: TAB, Bedtime, Dosing Weight 89.545, kg, Star t date: 05/02/18 21:00:00 CDT, Duration: 30 day, Stop date: 05/31/18 21:00:00 CD T Notes: (Same as: Pravachol) Start Date: 05/02/18 Stop Date: 05/03/18 Status: Discontinued propofol (ANES) Route: IV, Drug form: INJ, ONCE, Stop date: 05/02/18 8:30:00 CDT Start Date: 05/02/18 Stop Date: 05/02/18 Status: Completed protamine (ANES) 10 mg Route: IV, Drug form: INJ, Start date: 05/02/18 9:56:00 CDT, Stop date: 05/02/18 10:56:00 CDT Start Date: 05/02/18 Stop Date: 05/02/18 Status: Completed rocuronium (ANES) Route: IV, Drug form: INJ, ONCE, Stop date: 05/02/18 8:30:00 CDT Start Date: 05/02/18 Stop Date: 05/02/18 Status: Completed Saline Flush 0.9% 10 ml, Route: IVP, Drug Form: INJ, Dosing Weight 89.545, kg, Q12H, Start date: 0 05/02/18 21:00:00 CDT, Duration: 30 day, Stop date: 06/01/18 9:00:00 CDT Notes: (Same as: BD Posiflush) Start Date: 05/02/18 Stop Date: 05/03/18 Status: Discontinued Saline Flush 0.9% 10 ml, Route: IVP, Drug Form: INJ, Dosing Weight 89.545, kg, PRN, PRN Line Flush , Start date: 05/02/18 10:17:00 CDT, Duration: 30 day, Stop date: 06/01/18 10:16 :00 CDT Notes: (Same as: BD Posiflush) Start Date: 05/02/18 Stop Date: 05/03/18 Status: Discontinued sertraline 50 mg, 1 tab, Route: PO, Drug form: TAB, Daily, Dosing Weight 89.545, kg, Start date: 05/03/18 9:00:00 CDT, Duration: 30 day, Stop date: 06/01/18 9:00:00 CDT Notes: (Same as: Zoloft) Start Date: 05/03/18 Stop Date: 05/03/18 Status: Discontinued Sodium Chloride 0.9% IV (ANES) 1000 mL Route: IV, Total Volume: 1,000, Start date: 05/02/18 7:32:00 CDT, Stop date: 8:32:00 CDT Start Date: 05/02/18 Stop Date: 05/02/18 Status: Completed sucralfate 1 gm, 1 tab, Route: PO, Drug form: TAB, Q12H, Dosing Weight 89.545, kg, Start da te: 05/02/18 21:00:00 CDT, Duration: 14 day, Stop date: 05/16/18 9:00:00 CDT Notes: May interfere w/enteral feeds - Take 1 hr before or 2 hr after antacids, dairy pdt, meals & minerals - On empty stomach.For patients unable to swallow tablet, dissolve in 10mL - 30mL of water or juice and stir before giving. (Same As: Carafate) Start Date: 05/02/18 Stop Date: 05/03/18 Status: Discontinued sucralfate 1 g oral tablet 1 gm=1 tab, PO, Q12H, # 28 tab, 0 Refill(s) Start Date: 05/03/18 Status: Ordered Synthroid 75 microgram, 1 tab, Route: PO, Drug form: TAB, Q630AM, Start date: 05/03/18 6:3 0:00 CDT, Duration: 30 day, Stop date: 06/01/18 6:30:00 CDT Notes: Take 1 hour before or 2 hours after meal; Enteral feeds may interefere wi th the absorption of this medication. (Same as:Synthroid, Levothroid) Start Date: 05/03/18 Stop Date: 05/03/18 Status: Discontinued Toprol-XL 100 mg oral tablet, extended release 100 mg, 1 tab, Route: PO, Drug form: ERTAB, Daily, Start date: 05/03/18 9:00:00 CDT, Duration: 30 day, Stop date: 06/01/18 9:00:00 CDT Notes: (Same as: Toprol XL) May split tab, but do not crush. Start Date: 05/03/18 Stop Date: 05/03/18 Status: Discontinued torsemide 5 mg, 1 tab, Route: PO, Drug form: TAB, Daily, Dosing Weight 89.545, kg, Start d ate: 05/03/18 9:00:00 CDT, Duration: 30 day, Stop date: 06/01/18 9:00:00 CDT Notes: (Same As: Demadex) Start Date: 05/03/18 Stop Date: 05/03/18 Status: Discontinued tramadol 50 mg oral tablet 50 mg, 1 tab, Route: PO, Drug form: TAB, Q4H, Dosing Weight 89.545, kg, PRN Pain Score 1-3, Start date: 05/02/18 10:18:00 CDT, Duration: 30 day, Stop date: 05/15 10/02 10:17:00 CDT Notes: Not to exceed 400mg/day. (Same As: Ultram) Start Date: 05/02/18 Stop Date: 05/03/18 Status: Discontinued tramadol 50 mg oral tablet 50 mg=1 tab, PO, Q4H, PRN Pain Score 1-3, # 15 tab, 0 Refill(s) Start Date: 05/03/18 Stop Date: 05/11/18 Status: Ordered Vitamin D3 1000 intl units oral tablet 1,000 IntlUnit, 1 tab, Route: PO, Drug form: TAB, Daily, Dosing Weight 89.545, k g, Start date: 05/03/18 9:00:00 CDT, Duration: 30 day, Stop date: 06/01/18 9:00: 00 CDT Notes: Same as : Vitamin D3 Start Date: 05/03/18 Stop Date: 05/03/18 Status: Discontinued warfarin 6 mg, 2 tab, Route: PO, Drug form: TAB, Q5PM, Dosing Weight 89.545, kg, Start da te: 05/02/18 17:00:00 CDT, Duration: 1 day, Stop date: 05/02/18 17:00:00 CDT Notes: Nurse to ensure documentation of patient education per anticoagulation po licy.Avoid large intake of vitamin-K containing foods diet.(Same As: Coumadin)WA ANIBAL: F/P - P Waste Black; E - P Waste Black Start Date: 05/02/18 Stop Date: 05/02/18 Status: Completed Results BLOOD BANK RESULTS Most recent to 1 2 oldest [Reference Range]: ABO/Rh O POS *Unknown* (05/02/18 6:13 AM) Antibody Scrn Negative (05/02/18 6:13 AM) ELECTROLYTES Most recent to 1 2 oldest [Reference Range]: Sodium Lvl [135-145 137 mEq/L 141 mEq/L mEq/L] (05/03/18 3:24 AM) (05/02/18 6:13 AM) Potassium Lvl 4.4 mEq/L 4.2 mEq/L [3.5-5.1 mEq/L] (05/03/18 3:24 AM) (05/02/18 6:13 AM) Chloride Lvl [95-109 106 mEq/L 108 mEq/L mEq/L] (05/03/18 3:24 AM) (05/02/18 6:13 AM) CO2 [24-32 mEq/L] 22 mEq/L 25 mEq/L *LOW* (05/02/18 6:13 AM) (05/03/18 3:24 AM) AGAP [10.0-20.0 13.4 mEq/L 12.2 mEq/L mEq/L] (05/03/18 3:24 AM) (05/02/18 6:13 AM) CHEM PANEL Most recent to 1 2 oldest [Reference Range]: Creatinine Lvl 1.16 mg/dL 0.84 mg/dL [0.50-1.40 mg/dL] (05/03/18 3:24 AM) (05/02/18 6:13 AM) eGFR 44 mL/min/1.73m2 1 65 mL/min/1.73m2 2 *NA* *NA* (05/03/18 3:24 AM) (05/02/18 6:13 AM) BUN [7-22 mg/dL] 30 mg/dL 24 mg/dL *HI* *HI* (05/03/18 3:24 AM) (05/02/18 6:13 AM) Glucose Lvl [70-99 218 mg/dL 117 mg/dL mg/dL] *HI* *HI* (05/03/18 3:24 AM) (05/02/18 6:13 AM) Total Protein 7.2 g/dL [6.4-8.4 g/dL] (05/02/18 4:23 PM) Albumin Lvl [3.5-5.0 3.0 g/dL g/dL] *LOW* (05/02/18 4:23 PM) Globulin [2.7-4.2 4.2 g/dL g/dL] (05/02/18 4:23 PM) A/G Ratio [0.7-1.6] 0.7 (05/02/18 4:23 PM) Calcium Lvl 8.5 mg/dL 9.2 mg/dL [8.5-10.5 mg/dL] (05/03/18 3:24 AM) (05/02/18 6:13 AM) Magnesium Lvl 2.0 mg/dL 1.6 mg/dL [1.8-2.4 mg/dL] (05/03/18 3:24 AM) *LOW* (05/02/18 6:13 AM) ALT [0-65 unit/L] 22 unit/L (05/02/18 4:23 PM) AST [0-37 unit/L] 29 unit/L (05/02/18 4:23 PM) Alk Phos [39-136 68 unit/L unit/L] (05/02/18 4:23 PM) Bili Total [0.2-1.3 0.4 mg/dL mg/dL] (05/02/18 4:23 PM) Bili Direct [0.0-0.3 <0.1 mg/dL mg/dL] (05/02/18 4:23 PM) Bili Indirect Unable to Calculate [0.0-1.0] *NA* (05/02/18 4:23 PM) 1Result Comment: The eGFR is calculated using the [...] from the National Kidney Disease Education Program ( NKDEP) which additionally recommends that when the eGFR is used in patients with extremes of body mass index for purposes of drug dosing, the eGFR should be mul tiplied by the estimated BMI. 2Result Comment: The eGFR is calculated using the [...] from the National Kidney Disease Education Program ( NKDEP) which additionally recommends that when the eGFR is used in patients with extremes of body mass index for purposes of drug dosing, the eGFR should be mul tiplied by the estimated BMI. HEMATOLOGY Most recent to 1 2 oldest [Reference Range]: WBC [3.7-10.4 K/CMM] 15.6 K/CMM 10.2 K/CMM *HI* (05/02/18 6:13 AM) (05/03/18 3:24 AM) RBC [4.20-5.40 3.89 M/CMM 4.32 M/CMM M/CMM] *LOW* (05/02/18 6:13 AM) (05/03/18 3:24 AM) Hgb [12.0-16.0 g/dL] 12.0 g/dL 13.5 g/dL (05/03/18 3:24 AM) (05/02/18 6:13 AM) Hct [36.0-48.0 %] 36.7 % 40.2 % (05/03/18 3:24 AM) (05/02/18 6:13 AM) MCV [80.0-98.0 fL] 94.4 fL 93.0 fL (05/03/18 3:24 AM) (05/02/18 6:13 AM) MCH [27.0-31.0 pg] 30.7 pg 31.3 pg (05/03/18 3:24 AM) *HI* (05/02/18 6:13 AM) MCHC [32.0-36.0 32.6 g/dL 33.6 g/dL g/dL] (05/03/18 3:24 AM) (05/02/18 6:13 AM) RDW [11.5-14.5 %] 15.8 % 15.5 % *HI* *HI* (05/03/18 3:24 AM) (05/02/18 6:13 AM) MPV [7.4-10.4 fL] 8.7 fL 8.4 fL (05/03/18 3:24 AM) (05/02/18 6:13 AM) Platelet [133-450 280 K/CMM 293 K/CMM K/CMM] (05/03/18 3:24 AM) (05/02/18 6:13 AM) Segs [45.0-75.0 %] 82.9 % 64.0 % *HI* (05/02/18 6:13 AM) (05/03/18 3:24 AM) Lymphocytes 9.8 % 19.9 % [20.0-40.0 %] *LOW* *LOW* (05/03/18 3:24 AM) (05/02/18 6:13 AM) Monocytes [2.0-12.0 6.9 % 11.5 % %] (05/03/18 3:24 AM) (05/02/18 6:13 AM) Eosinophils [0.0-4.0 0.2 % 3.8 % %] (05/03/18 3:24 AM) (05/02/18 6:13 AM) Basophils [0.0-1.0 0.2 % 0.8 % %] (05/03/18 3:24 AM) (05/02/18 6:13 AM) Neutrophils # 13.0 K/CMM 6.5 K/CMM [1.5-8.1 K/CMM] *HI* (05/02/18 6:13 AM) (05/03/18 3:24 AM) Lymphocytes # 1.5 K/CMM 2.0 K/CMM [1.0-5.5 K/CMM] (05/03/18 3:24 AM) (05/02/18 6:13 AM) Monocytes # [0.0-0.8 1.1 K/CMM 1.2 K/CMM K/CMM] *HI* *HI* (05/03/18 3:24 AM) (05/02/18 6:13 AM) Eosinophils # 0.4 K/CMM [0.0-0.5 K/CMM] (05/02/18 6:13 AM) Basophils # [0.0-0.2 0.1 K/CMM K/CMM] (05/02/18 6:13 AM) PT [12.0-14.7 21.1 seconds 24.0 seconds seconds] *HI* *HI* (05/03/18 3:24 AM) (05/02/18 6:13 AM) INR [0.85-1.17] 1.87 2.21 *HI* *HI* (05/03/18 3:24 AM) (05/02/18 6:13 AM) POC Activated 169 seconds Clotting Time *NA* (05/02/18 11:24 AM) PTT [22.9-35.8 43.0 seconds 44.9 seconds seconds] *HI* *HI* (05/03/18 3:24 AM) (05/02/18 6:13 AM) Immunizations No data available for this section Procedures Procedure Date Related Diagnosis Body Site Status Appendectomy Completed Cataract extraction Completed Catheterization of both left and right heart Completed Cholecystectomy Completed Hysterectomy Completed Tonsillectomy Completed Transesophageal echocardiogram Completed Social History Social History Type Response Substance Abuse Use: None. Exercise 1 Employment/School Status: Retired. 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 Highest education level: High school. Alcohol Never Smoking Status Never smoker; Previous treatment: None; Exposure to Tobacco Smoke None; Cigarette Smoking Last 365 Days No; Reg Smoking Cessation Counseling No entered on: 05/01/18 1"NO" Assessment and Plan No data available for this section
--- OUTSIDE RECORDS SUMMARY | 2018-07-18 16:21 | XMS REPORT | Summary of Care ---
Author Author [facility] Outpatient Imaging [facility] Outpatient [facility] Address Unknown Phone Unavailable Encounter [facility](FIN) [id number] Date(s): 07/26/17 - 07/26/17 [facility] Outpatient Imaging [facility] [address] [facility], [address] [place] [phone] Discharge Disposition: Home or Self Care Attending Physician: Fly Mariscal MD Vital Signs No data available for [...]
--- OUTSIDE RECORDS SUMMARY | 2018-07-18 16:21 | XMS REPORT | Summary of Care ---
Author Organization Unknown Address Unknown Phone Unavailable Encounter [facility]) [id number] Date(s): 02/26/14 - 02/26/14 [facility] Outpatient Imaging - [address] [address] [place] Discharge Disposition: Home Physician Attending: Owen Braswell MD Reason for Visit V76.12 - SCREEN MAMMOGRA Problem List No data available for this section Allergies, Adverse Reactions, Alerts No data available for this section Medications No data available for this section Medications Administered During Your Visit No data available for this section Immunizations No data available for this section
--- OUTSIDE RECORDS SUMMARY | 2018-07-18 16:21 | XMS REPORT | Summary of Care ---
Author Author [facility] Outpatient Imaging - [place] Organization [facility] Outpatient Imaging - [place] Address Unknown Phone Unavailable Encounter HQ Encntr_rowena(FIN) [phone] Date(s): 03/28/17 - 03/28/17 [facility] Outpatient Imaging - [place] [address] [place], [place] [address] [phone] Encounter Diagnosis Other specified disorders of breast (Final) - 03/31/17 Other abnormal and inconclusive findings on diagnostic imaging of breast (Final) - Discharge Disposition: Home [...]
--- OUTSIDE RECORDS SUMMARY | 2018-07-18 16:21 | XMS REPORT | Summary of Care ---
Author Author [facility] Outpatient Imaging - [place] Organization [facility] Outpatient Imaging - [place] Address Unknown Phone Unavailable Encounter HQ [place](FIN) [phone] Date(s): 03/24/18 - 03/24/18 [facility] Outpatient Imaging - [place] [address] [place] [phone] Discharge Disposition: Home or Self Care Attending [...] 1 Employment/School Status: Retired. 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 Highest education level: High school. Alcohol Never Smoking Status Never smoker; Previous treatment: None; Exposure to Tobacco Smoke None; Cigarette Smoking Last 365 Days No; Reg Smoking Cessation Counseling No entered on: 01/11/18 1"NO" Assessment and Plan No data available for this section
--- OUTSIDE RECORDS SUMMARY | 2018-07-18 16:21 | XMS REPORT | Summary of Care ---
Author Author [facility] Organization [facility] Address Unknown Phone Unavailable Encounter YRIS Obregon(MAGGIE) [id number] Date(s): 05/01/18 - 05/01/18 [facility] [address] [place] [address] [phone] Discharge Disposition: Home or Self Care Attending Physician: Camilal Madera MD Referring Physician: Camilla Madera MD Vital Signs 1 2 3 Most recent to oldest [Reference Range]: 170.18 cm (05/01/18 9:34 AM) Height 172/78 mmHg *HI* (05/01/18 12:45 PM) 183/86 mmHg *HI* (05/01/18 12:40 PM) 164/67 mmHg *HI* (05/01/18 12:35 PM) Blood Pressure [90-140/60-90 mmHg] 29 BRMIN *HI* (05/01/18 12:45 PM) 35 BRMIN *HI* (05/01/18 12:40 PM) 33 BRMIN *HI* (05/01/18 12:35 PM) Respiratory Rate [14-20 BRMIN] 89.545 kg (05/01/18 9:34 AM) Weight 30.92 m2 (05/01/18 9:34 AM) Body Mass Index Problem List Condition Effective Dates Status Health Status Informant Anemia(Confirmed) Resolved Atrial Resolved fibrillation(Confirm ed) Hsu Resolved palsy(Confirmed) Diabetes(Confirmed) Resolved Heart Resolved failure(Confirmed) HTN Resolved (hypertension)(Confi rmed) Allergies, Adverse Reactions, Alerts Substance Reaction Severity Status codeine Active Medications Fish Oil 1000 mg oral capsule 3,000 mg=3 cap, PO, Daily, 0 Refill(s) Start Date: 04/24/18 Status: Ordered Tresiba FlexTouch 100 units/mL subcutaneous solution 26 units, SUB-Q, Bedtime, 0 Refill(s) Start Date: 04/24/18 Status: Ordered Vitamin B12 1000 mcg/mL injectable solution 1,000 microgram=1 mL, IM, qMonth, # 30 mL, 0 Refill(s) Start Date: 04/24/18 Status: Ordered warfarin 6 mg oral tablet 6 mg=1 tab, PO, Daily, # 30 tab, 0 Refill(s) Start Date: 04/24/18 Status: Ordered Results No data available for [...] 1 Employment/School Status: Retired. 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 Highest education level: High school. Alcohol Never Smoking Status Never smoker; Previous treatment: None; Exposure to Tobacco Smoke None; Cigarette Smoking Last 365 Days No; Reg Smoking Cessation Counseling No entered on: 05/01/18 1"NO" Assessment and Plan No data available for this section
--- OUTSIDE RECORDS SUMMARY | 2018-07-18 16:21 | XMS REPORT | Summary of Care ---
Author Author [facility] Organization [facility] Address Unknown Phone Unavailable Encounter YRIS Obregon(MAGGIE) [id number] Date(s): 09/27/17 - 09/27/17 [facility] [address] [employer] provided by [facility] [employer] [facility] [place] [address]- Attending Physician: Maricel Ramires MD Admitting Physician: [...] 1 Employment/School Status: Retired. 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 Highest education level: High school. Alcohol Never Smoking Status Never smoker; Previous treatment: None; Exposure to Tobacco Smoke None; Cigarette Smoking Last 365 Days No; Reg Smoking Cessation Counseling No entered on: 01/11/18 1"NO" Assessment and Plan No data available for this section
[2018-07-18 17:22] LABS: BASOPHILS # (AUTO) 0.1 (0.0-0.1); BASOPHILS % 0.6 % (0.0-1.0); EOSINOPHILS # (AUTO) 0.5 (0.0-0.4); EOSINOPHILS % 3.9 % (0.0-6.0); LYMPHOCYTES # (AUTO) 2.5 (1.0-3.2); LYMPHOCYTES % 19.8 % (18.0-39.1); MEAN CORPUSCULAR HEMOGLOBIN 28.6 pg (28-32); MEAN CORPUSCULAR VOLUME 89.3 fL (81-99); MONOCYTES # (AUTO) 1.4 (0.2-0.8); NEUTROPHILS # (AUTO) 7.9 (2.1-6.9); NEUTROPHILS % 63.7 % (38.7-80.0); PLATELET COUNT 412 x10e3/uL (140-360); RED BLOOD COUNT 2.52 x10e6/uL (3.6-5.1); RED CELL DISTRIBUTION WIDTH 14.2 % (11.7-14.4)
[2018-07-18 17:24] LABS: HEMATOCRIT 22.5 % (34.2-44.1); HEMOGLOBIN 7.2 g/dL (12.0-16.0)
[2018-07-18] MEDS ORDERED: SODIUM CHLORIDE 0.9% 250ML 250 ML IV NR (17:30)
[2018-07-18 17:31] LABS: INR 2.54; PROTHROMBIN TIME 28.1 seconds (11.9-14.5)
[2018-07-18 17:40] LABS: ALBUMIN 2.9 g/dL (3.5-5.0); ALBUMIN/GLOBULIN RATIO 0.8 (0.8-2.0); ANION GAP 13.7 mmol/L (8-16); CALCIUM 9.3 mg/dL (8.4-10.2); CREATININE, SERUM 1.24 mg/dL (0.57-1.11); POTASSIUM 4.7 mmol/L (3.5-5.1)
--- NOTE | 2018-07-18 17:42 | NUR ---
type and cross sent and consent signed.
[2018-07-18 17:47] LABS: CREATINE KINASE MB 7.4 ng/mL (0-5.0)
--- NOTE | 2018-07-18 17:56 | Diagnostic Imaging Report ---
Examination: Single AP view of the chest. COMPARISON: None. INDICATION: Anemia DISCUSSION: Lines/tubes: None. Lungs: Central venous congestion. No pneumonia. Pleura: No pleural effusion or pneumothorax. Heart and mediastinum: Prominent heart size. Bones and soft tissues: No acute bony abnormalities. IMPRESSION: 1. No acute cardiopulmonary abnormalities. Signed by: Dr. Navarro Mcdaniels M.D. on 07/18/2018 5:52 PM
--- NOTE | 2018-07-18 18:04 | NUR ---
per pt and family her milk sampler sent her here and states that the pt is bleeding and she needs a colonoscopy to find out where she is bleeding from as she has been having black dark stools for about a week and her hemaglobin keeps dropping.
[2018-07-18] MEDS ORDERED: PHYTONADIONE 10 MG/ML AMP PO ONE (18:15)
[2018-07-18] MEDS ORDERED: PANTOPRAZOLE 40 MG 10ML VIAL IV NR (18:15)
[2018-07-18] MEDS ORDERED: DEXTROSE 50% SYRINGE 50 ML IV PRN (18:30)
--- NOTE | 2018-07-18 19:15 | NUR ---
consent not signed as printer is broken and cannot print from forms ANABEL ruiz informed and report given to ANABEL Mendiola. Blood is ready in the lab for the pt
[2018-07-18] MEDS: SODIUM CHLORIDE 0.9% 1000ML 1,000 ML IV SCH (19:25)
[2018-07-18 19:30] LABS: CLARITY,URINE SL CLOUDY (CLEAR); COLOR,URINE YELLOW (YELLOW); LEUKOCYTE ESTERASE ,URINE NEGATIVE (NEGATIVE); NITRITE,URINE NEGATIVE (NEGATIVE); URINE UROBILINOGEN 0.2 mg/dL (0.2 - 1)
[2018-07-18 19:31] LABS: BILIRUBIN,URINE NEGATIVE (NEGATIVE); KETONES,URINE NEGATIVE (NEGATIVE); PROTEIN,URINE DIPSTICK NEGATIVE (NEGATIVE)
[2018-07-18 19:45] LABS: BACTERIA,URINE MANY /HPF; EPITHELIAL CELLS,URINE FEW /LPF; WBC,URINE (MAN) 0-5 /HPF (0-5)
[2018-07-18 20:21] VITALS: BP 152/69
--- NOTE | 2018-07-18 20:21 | NUR ---
PT ARRIVED TO ROOM BY STRETCHER. PT IS AAOX3, RR EVEN AND NON-LABORED, ON RA. PT SOB WITH EXERTION. AMBULATORY WITH ASSISTANCE. ORIENTED PT TO HOSPITAL ROOM, CALL LIGHT AND PHONE. LEFT PT LAYING SEMI FOWLERS IN BED, BED IN LOW LOCKED POSITION, SIDE RAILS UPX2, CALL LIGHT AND PHONE WITHIN REACH.
[2018-07-18 20:25] VITALS: BP 152/69
[2018-07-18] MEDS: INSULIN LISPRO 100 UNIT/1 ML 3ML VIAL SQ SCH (21:57)
--- NOTE | 2018-07-18 21:57 | NUR ---
SPOKE WITH MD ADAM CONCERNING PT DIET AND PLANS FOR PROCEDURES. NO PROCEDURE PLANNED TILL TUESDAY/TUESDAY AND OK TO START DIET.
[2018-07-18] MEDS ORDERED: FAMOTIDINE20 MG PO (22:14)
--- NOTE | 2018-07-18 22:15 | NUR ---
SPOKE WITH MD SALAZAR CONCERNING PT HOME MEDICATIONS AND CONSULTATION FOR MD RIGGS. NEW ORDERS RECEIVED. WILL EVALUATE REMAINING HOME MEDICATIONS IN MORNING.
[2018-07-18 23:20] VITALS: BP 178/86
[2018-07-18] MEDS ORDERED: SODIUM CHLORIDE 0.9% 250ML 250 ML ONE (23:37)
[2018-07-18 23:48] VITALS: BP 176/72
--- NOTE | 2018-07-18 23:50 | Consultation ---
DATE OF CONSULTATION: 07/18/2018 HISTORY OF PRESENT ILLNESS: An 83-year-old, who apparently presented to the hospital because of generalized weakness. The patient was found to have anemia with hemoglobin 7.2. Apparently, she had received blood transfusions last because of the same problem. She noticed problems with black stool. She denies any abdominal pain along with this problem. She denies any history of ulcer disease. BUN of 36 and creatinine 1.24. PAST MEDICAL PROBLEM: Significant for history of atrial fibrillation status post ablation. She is also on Coumadin. She has history of diabetes and history of hypertension. CURRENT MEDICATIONS: Including allopurinol, bupropion, vitamin D3, indapamide, insulin, levothyroxine, lisinopril, meclizine, metoprolol, omeprazole, pravastatin, prednisone, sertraline, Januvia, and also apixaban. SOCIAL HISTORY: No alcohol use. FAMILY HISTORY: Noncontributory. REVIEW OF SYSTEMS: Denies any chest pain at this point. Denies any shortness of breath. Denies any dysphagia or odynophagia. Denies any dysuria, hematuria, or any kind of syncopal episode. PHYSICAL EXAMINATION: GENERAL: The patient is awake, alert, appears to be stable, not in acute distress at this point. VITAL SIGNS: Afebrile currently with stable vital signs. HEAD, EYES, EARS, NOSE, AND THROAT: Normocephalic, atraumatic. Sclerae are anicteric. NECK: Supple. HEART: Regular. LUNGS: Clear. ABDOMEN: Soft. There is no distention at this point. EXTREMITIES: No cyanosis. No clubbing. LABORATORY VALUES: WBC of 12.4, hemoglobin 7.2, hematocrit of 22.5. BUN 36, creatinine 1.24. PT 28.1, INR 2.54. IMPRESSION: 1. Gastrointestinal bleed with black tarry stool. 2. Anemia because of gastrointestinal bleed. 3. Atrial fibrillation. 4. Diabetes. RECOMMENDATION: Continue current care at this point with proton pump inhibitor. I will transfuse packed red blood cells as well as FFP. Follow labs and we will proceed to have an EGD after PT/INR is acceptable. MD MARIO Mary/JANETL /[id number] cc: Owen Braswell MD
[2018-07-19] VITALS (23 sets, daily range): BP systolic 148–195; BP diastolic 66–90
[2018-07-19] MEDS ORDERED: NOVOLOG100 UNITS1 SC ×3 (00:33)
[2018-07-19] MEDS ORDERED: TORSEMIDE10 MG PO (00:33)
[2018-07-19] MEDS ORDERED: ALLOPURINOL100 MG PO (00:33)
[2018-07-19] MEDS ORDERED: TRESIBA SC (00:33)
[2018-07-19] MEDS ORDERED: DILTIAZEM HCL60 MG PO (00:33)
[2018-07-19] MEDS ORDERED: LISINOPRIL20 MG PO (00:33)
[2018-07-19] MEDS ORDERED: VITAMIN D400 UNIT PO (00:33)
[2018-07-19] MEDS ORDERED: COUMADIN3 MG PO (00:33)
--- NOTE | 2018-07-19 03:04 | NUR ---
PAGE PLACED FOR MD SALAZAR CONCERNING PT ELEVATED BLOOD PRESSURE. WAITING FOR CALLBACK.
[2018-07-19] MEDS ORDERED: CLONIDINE HCL 0.1 MG TAB PO ONE (03:15)
--- NOTE | 2018-07-19 03:15 | NUR ---
SPOKE WITH MD SALAZAR CONCERNING ELEVATED BP. NEW ORDER RECEIVED.
[2018-07-19] MEDS: SODIUM CHLORIDE 0.9% 1000ML 1,000 ML IV SCH ×2 (04:30→16:14)
--- NOTE | 2018-07-19 04:44 | NUR ---
PT SPO2 DROPPED TO 88-90% AFTER AMBULATING TO BATHROOM AND BACK TO BED. APPLIED O2 BY NC AT 2L. SPO2 INCREASED TO 96%.
[2018-07-19] MEDS: FUROSEMIDE INJ 10 MG/ML 2 ML VIAL IV PRN ×2 (06:30→14:54)
--- NOTE | 2018-07-19 07:27 | NUR ---
RECEIVED PATIENT AWAKE SITING UP IN BED NO SIGNS OF DISTRESS. BED LOW, WHEELS LOCKED, SIDE RAILS X2. CALL LIGHT IN REACH. WILL CONTINUE TO MONITOR PATIENT.
[2018-07-19] MEDS: PANTOPRAZOLE 40 MG 10ML VIAL IV SCH ×2 (08:26→17:15)
[2018-07-19] MEDS: INSULIN LISPRO 100 UNIT/1 ML 3ML VIAL SQ SCH ×3 (09:23→17:16)
[2018-07-19] MEDS: FAMOTIDINE 20 MG TAB PO SCH ×2 (09:30→21:06)
[2018-07-19 09:36] LABS: BASOPHILS # (AUTO) 0.1 (0.0-0.1); BASOPHILS % 0.4 % (0.0-1.0); EOSINOPHILS # (AUTO) 0.5 (0.0-0.4); EOSINOPHILS % 3.8 % (0.0-6.0); HEMATOCRIT 23.8 % (34.2-44.1); LYMPHOCYTES # (AUTO) 2.2 (1.0-3.2); LYMPHOCYTES % 16.1 % (18.0-39.1); MEAN CORPUSCULAR HEMOGLOBIN 29.3 pg (28-32); MEAN CORPUSCULAR HGB CONC 33.6 g/dL (31-35); MEAN CORPUSCULAR VOLUME 87.2 fL (81-99); MONOCYTES # (AUTO) 1.5 (0.2-0.8); MONOCYTES % 10.6 % (4.4-11.3); NEUTROPHILS # (AUTO) 9.4 (2.1-6.9); NEUTROPHILS % 68.5 % (38.7-80.0); PLATELET COUNT 348 x10e3/uL (140-360); RED BLOOD COUNT 2.73 x10e6/uL (3.6-5.1); RED CELL DISTRIBUTION WIDTH 14.4 % (11.7-14.4)
--- NOTE | 2018-07-19 09:48 | NUR ---
PATIENT A/O X3, EVEN RESPIRATIONS ON RA. BOWEL SOUNDS ACTIVE, SKIN INTACT, NO EDEMA. LEFT AC 20 GAUGE IV WITH NS @ 75 CC/HR. TELEMETRY #18 SR. PATIENT AMBULATES WITH STANDBY ASSIST. CALL LIGHT IN REACH, NO DISCOMFORT AT THIS TIME. WILL CONTINUE TO MONITOR PATIENT. Addendum: 07/19/18 at 1305 by Shyann Chairez RN MORNING O2 SATS 92% RA. PATIENT NOW ON 2LNC 02 SATS 99%.
[2018-07-19 10:09] LABS: INR 1.45; PROTHROMBIN TIME 18.2 seconds (11.9-14.5)
[2018-07-19 10:12] LABS: BLOOD UREA NITROGEN 26 mg/dL (7-26); BUN/CREATININE RATIO 32 (6-25); CALCIUM 9.2 mg/dL (8.4-10.2); CARBON DIOXIDE 23 mmol/L (22-29); CHLORIDE 103 mmol/L (98-107); CREATININE, SERUM 0.81 mg/dL (0.57-1.11); EST GLOMERULAR FILTRATION RATE > 60 ML/MIN (60-); GLUCOSE 138 mg/dL (74-118); SODIUM 134 mmol/L (136-145)
[2018-07-19] MEDS: METOPROLOL SUCCINATE 50 MG TAB XL PO SCH ×2 (10:20→21:06)
[2018-07-19] MEDS: LISINOPRIL 20 MG TAB PO SCH ×2 (10:20→17:15)
[2018-07-19] MEDS: ALLOPURINOL 100 MG TAB PO SCH ×2 (10:20→17:15)
[2018-07-19] MEDS: SERTRALINE HCL 50 MG TAB PO SCH (10:20)
[2018-07-19] MEDS: DILTIAZEM HCL 180 MG CAP ER PO SCH (10:20)
[2018-07-19] MEDS ORDERED: SODIUM CHLORIDE 0.9% 250ML 250 ML ONE ×2 (11:00→22:21)
--- NOTE | 2018-07-19 11:54 | NUR ---
IMM EXPLAINED TO PT, SIGNED BY PT AND ON CHART COPY TO PT IN CARE TRANSITIONS FOLDER
--- NOTE | 2018-07-19 11:59 | NUR ---
PATIENT RECEIVING ONE UNIT OF PRBC AT THIS TIME. NO SIGNS OF DISTRESS. VITAL SIGNS STABLE. CALL LIGHT IN REACH WILL CONTINUE TO MONITOR.
--- NOTE | 2018-07-19 12:39 | Consultation ---
DATE OF CONSULTATION: 07/19/2018 HISTORY OF PRESENT ILLNESS: Medina Smiley is an 83-year-old white female, who is well known to me for approximately 10 to 15 years for anemia usually because of GI bleed. The patient is known to have AVM of the GI tract. The patient requires blood transfusion as well as InFed. The patient was given blood transfusion approximately 3 to 4 days because of symptomatic anemia. However, the patient presented to the office with her son-in-law, extremely weak with black tarry stools. Subsequently, I had called learning services coordinator as well as Dr. Braswell, the ER physician to be admitted for blood transfusion. PAST MEDICAL HISTORY: History of atrial fibrillation, history of ablation. She still continues to be on Coumadin. I have spoken to learning services coordinator involved, subsequently admitted for further evaluation and treatment. History of diabetes and history of hypertension. SOCIAL HISTORY: Noncontributory. FAMILY HISTORY: Noncontributory. ALLERGIES: REPORTED NONE. MEDICATIONS: At this time: 1. Allopurinol. 2. Bupropion. 3. Insulin. 4. Synthroid. 5. Lisinopril. 6. Meclizine. 7. Metoprolol. 8. Pravastatin. 9. Prednisone. 10. Zoloft. 11. Januvia. 12. Apixaban. REVIEW OF SYSTEMS: HEENT: Normal. CARDIAC: History of hypertension and hyperlipidemia. The patient had atrial fibrillation; however, the most recent EKG is normal with no atrial fibrillation after the patient has had an ablation. GI: Multiple GI bleeds. : Normal. MUSCULOSKELETAL: Normal. SKIN AND BREASTS: Normal. NEUROENDOCRINE: History of hypothyroidism and diabetes mellitus. PHYSICAL EXAMINATION: GENERAL: Remarkable female, very anemic. NECK: No palpable adenopathy. HEART: Within normal limits. LUNGS: Clear. ABDOMEN: Soft. RECTAL: Deferred. CENTRAL NERVOUS SYSTEM: Essentially normal. EXTREMITIES: Essentially normal. LABORATORY DATA: Hemoglobin of 7.2, hematocrit 22.5, white count 12,400, and platelets of 412,000. BUN 36, creatinine 1.24. Glucose has been running high at 193. IMPRESSION: 1. Anemia of blood loss. 2. Gastrointestinal bleed. 3. Arteriovenous malformation of the GI tract. 4. Acquired coagulopathy. 5. Hypertension. 6. Urinary tract infection. 7. Hyperglycemia. 8. Hypoalbuminemia. 9. Hypothyroidism. 10. Hyperlipidemia. PLAN, COMMENTS, AND SUGGESTIONS: I will confine myself to Hematology only. Blood transfusion. GI consultation. Spoken to Dr. Braswell at length. Shanel Herrera MD MAShanthi/MODL /[id number] cc: Owen Braswell MD
--- NOTE | 2018-07-19 14:45 | NUR ---
FIRST UNIT OF PRBC COMPLETE. VITAL SIGNS STABLE NO SIGNS OF DISTRESS. WILL CONTINUE TO MONITOR PATIENT.
[2018-07-19 16:45] LABS: BASOPHILS # (AUTO) 0.1 (0.0-0.1); BASOPHILS % 0.5 % (0.0-1.0); EOSINOPHILS # (AUTO) 0.6 (0.0-0.4); EOSINOPHILS % 4.8 % (0.0-6.0); HEMATOCRIT 28.6 % (34.2-44.1); HEMOGLOBIN 9.4 g/dL (12.0-16.0); LYMPHOCYTES # (AUTO) 2.6 (1.0-3.2); MEAN CORPUSCULAR HEMOGLOBIN 29.3 pg (28-32); MEAN CORPUSCULAR HGB CONC 32.9 g/dL (31-35); MEAN CORPUSCULAR VOLUME 89.1 fL (81-99); MONOCYTES # (AUTO) 1.6 (0.2-0.8); MONOCYTES % 12.2 % (4.4-11.3); NEUTROPHILS # (AUTO) 8.1 (2.1-6.9); NEUTROPHILS % 61.9 % (38.7-80.0); PLATELET COUNT 339 x10e3/uL (140-360); RED BLOOD COUNT 3.21 x10e6/uL (3.6-5.1); RED CELL DISTRIBUTION WIDTH 14.2 % (11.7-14.4)
[2018-07-19] MEDS: CEFTRIAXONE SOD 1 GM/NS 50 ML 50 ML IV SCH (17:15)
[2018-07-19] MEDS: BUPROPION HCL 100 MG TAB PO SCH (17:15)
--- NOTE | 2018-07-19 19:20 | NUR ---
Received patient awake, family member at bedside, patient just had a BM, still black. Advise patient to call for assistance anytime, for transfusion 1 unit PRBC. Will continue to monitor
--- NOTE | 2018-07-19 19:55 | NUR ---
Dr. Diaz came and seen patient
--- NOTE | 2018-07-19 20:40 | NUR ---
House Sup informed of the procedure, pt for EGD, will add on
--- NOTE | 2018-07-19 21:00 | NUR ---
patient signed the consent for EGD
[2018-07-19] MEDS: INSULIN GLARGINE 100 UNITS/ML VIAL SQ SCH (21:06)
--- NOTE | 2018-07-19 22:20 | NUR ---
Infusion started 1 unit PRBC
[2018-07-20] VITALS (8 sets, daily range): BP systolic 143–185; BP diastolic 63–84
--- NOTE | 2018-07-20 01:20 | NUR ---
Lasix 20mg IV given post transfusion
--- NOTE | 2018-07-20 01:20 | NUR ---
Blood transfusion completed
[2018-07-20] MEDS: FUROSEMIDE INJ 10 MG/ML 2 ML VIAL IV PRN (01:30)
[2018-07-20] MEDS: LEVOTHYROXINE SODIUM 75 MCG TAB PO SCH (05:06)
[2018-07-20] MEDS: SODIUM CHLORIDE 0.9% 1000ML 1,000 ML IV SCH ×2 (05:06→11:06)
[2018-07-20] MEDS: LEVOTHYROXINE SODIUM 100 MCG TAB PO SCH (05:06)
[2018-07-20 06:20] LABS: BASOPHILS # (AUTO) 0.1 (0.0-0.1); BASOPHILS % 0.6 % (0.0-1.0); EOSINOPHILS # (AUTO) 0.6 (0.0-0.4); EOSINOPHILS % 4.9 % (0.0-6.0); HEMOGLOBIN 10.5 g/dL (12.0-16.0); LYMPHOCYTES # (AUTO) 2.2 (1.0-3.2); LYMPHOCYTES % 18.8 % (18.0-39.1); MEAN CORPUSCULAR HEMOGLOBIN 29.8 pg (28-32); MEAN CORPUSCULAR HGB CONC 33.9 g/dL (31-35); MEAN CORPUSCULAR VOLUME 88.1 fL (81-99); MONOCYTES # (AUTO) 1.4 (0.2-0.8); MONOCYTES % 11.5 % (4.4-11.3); NEUTROPHILS # (AUTO) 7.4 (2.1-6.9); NEUTROPHILS % 63.6 % (38.7-80.0); PLATELET COUNT 344 x10e3/uL (140-360); RED BLOOD COUNT 3.52 x10e6/uL (3.6-5.1); RED CELL DISTRIBUTION WIDTH 14.4 % (11.7-14.4)
[2018-07-20 06:30] LABS: INR 1.13
[2018-07-20 06:36] LABS: BLOOD UREA NITROGEN 20 mg/dL (7-26); BUN/CREATININE RATIO 26 (6-25); CALCIUM 9.4 mg/dL (8.4-10.2); CARBON DIOXIDE 27 mmol/L (22-29); CHLORIDE 102 mmol/L (98-107); CREATININE, SERUM 0.78 mg/dL (0.57-1.11); EST GLOMERULAR FILTRATION RATE > 60 ML/MIN (60-); GLUCOSE 116 mg/dL (74-118); SODIUM 137 mmol/L (136-145)
--- NOTE | 2018-07-20 07:23 | NUR ---
RECEIVED PATIENT ASLEEP IN BED NO SIGNS OF DISTRESS. BED LOW, WHEELS LOCKED, SIDE RAILS X2. CALL LIGHT IN REACH WILL CONTINUE TO MONITOR PATIENT.
[2018-07-20] MEDS: INSULIN LISPRO 100 UNIT/1 ML 3ML VIAL SQ SCH ×3 (07:30→16:30)
[2018-07-20] MEDS ORDERED: LEVOTHYROXINE SODIUM 75 MCG TAB PO SCH (07:30)
[2018-07-20] MEDS: DILTIAZEM HCL 180 MG CAP ER PO SCH ×2 (08:30→09:00)
[2018-07-20] MEDS: PANTOPRAZOLE 40 MG 10ML VIAL IV SCH ×2 (08:30→17:24)
[2018-07-20] MEDS: METOPROLOL SUCCINATE 50 MG TAB XL PO SCH ×3 (08:31→21:20)
[2018-07-20] MEDS: SERTRALINE HCL 50 MG TAB PO SCH (08:31)
[2018-07-20] MEDS: BUPROPION HCL 100 MG TAB PO SCH ×2 (08:31→17:24)
[2018-07-20] MEDS: ALLOPURINOL 100 MG TAB PO SCH ×2 (08:31→17:24)
[2018-07-20] MEDS: SITAGLIPTIN 100 MG TAB PO SCH (08:31)
[2018-07-20] MEDS: LISINOPRIL 20 MG TAB PO SCH ×2 (08:31→17:24)
[2018-07-20] MEDS ORDERED: DILTIAZEM HCL 60 MG TAB PO SCH (09:00)
[2018-07-20] MEDS: FAMOTIDINE 20 MG TAB PO SCH ×2 (09:32→21:20)
--- NOTE | 2018-07-20 09:38 | NUR ---
PATIENT A/O X3, EVEN RESPIRATIONS UNLABORED ON 2LNC. BOWEL SOUNDS ACTIVE, SKIN INTACT, NO EDEMA. PATIENT NPO FOR EGD TODAY. LEFT AC 20 GAUGE IV INTACT AND PATENT. IVF @ 100 CC/HR. NO DISCOMFORT AT THIS TIME. VITAL SIGNS STABLE. TELEMETRY #18 SR. CALL LIGHT IN REACH. SON AT BEDSIDE. EDUCATED PATIENT TO CALL FOR ASSISTANCE.
[2018-07-20 12:22] LABS: BASOPHILS # (AUTO) 0.1 (0.0-0.1); BASOPHILS % 0.5 % (0.0-1.0); EOSINOPHILS # (AUTO) 0.5 (0.0-0.4); EOSINOPHILS % 4.6 % (0.0-6.0); HEMATOCRIT 30.6 % (34.2-44.1); HEMOGLOBIN 10.3 g/dL (12.0-16.0); LYMPHOCYTES # (AUTO) 2.1 (1.0-3.2); LYMPHOCYTES % 17.5 % (18.0-39.1); MEAN CORPUSCULAR HEMOGLOBIN 29.7 pg (28-32); MEAN CORPUSCULAR HGB CONC 33.7 g/dL (31-35); MEAN CORPUSCULAR VOLUME 88.2 fL (81-99); MONOCYTES # (AUTO) 1.3 (0.2-0.8); MONOCYTES % 10.8 % (4.4-11.3); NEUTROPHILS # (AUTO) 7.8 (2.1-6.9); NEUTROPHILS % 65.8 % (38.7-80.0); PLATELET COUNT 366 x10e3/uL (140-360); RED BLOOD COUNT 3.47 x10e6/uL (3.6-5.1); RED CELL DISTRIBUTION WIDTH 14.5 % (11.7-14.4)
--- NOTE | 2018-07-20 13:50 | NUR ---
PATIENT OFF UNIT FOR EGD AT THIS TIME.
[2018-07-20] MEDS ORDERED: BISACODYL 5 MG TAB EC PO ONE (15:00)
[2018-07-20] MEDS ORDERED: PEG (High)/E-LYTE SOLN 4,000 ML BTL PO ONE (15:00)
--- NOTE | 2018-07-20 15:27 | NUR ---
PATIENT BACK FROM EGD AT THIS TIME. CALL LIGHT IN REACH WILL CONTINUE TO MONITOR PATIENT.
[2018-07-20] MEDS ORDERED: PROPOFOL IV EMULSION 10 MG/ML 50 ML VIAL ONE (17:08)
[2018-07-20] MEDS: CEFTRIAXONE SOD 1 GM/NS 50 ML 50 ML IV SCH (17:24)
--- NOTE | 2018-07-20 18:25 | NUR ---
CONSENT DONE FOR COLONOSCOPY TOMORROW.
[2018-07-20 18:30] LABS: BASOPHILS # (AUTO) 0.1 (0.0-0.1); BASOPHILS % 0.5 % (0.0-1.0); EOSINOPHILS # (AUTO) 0.9 (0.0-0.4); EOSINOPHILS % 5.9 % (0.0-6.0); HEMATOCRIT 33.7 % (34.2-44.1); HEMOGLOBIN 11.1 g/dL (12.0-16.0); LYMPHOCYTES # (AUTO) 2.2 (1.0-3.2); LYMPHOCYTES % 15.4 % (18.0-39.1); MEAN CORPUSCULAR HEMOGLOBIN 29.2 pg (28-32); MEAN CORPUSCULAR HGB CONC 32.9 g/dL (31-35); MEAN CORPUSCULAR VOLUME 88.7 fL (81-99); MONOCYTES # (AUTO) 1.4 (0.2-0.8); MONOCYTES % 10.1 % (4.4-11.3); NEUTROPHILS # (AUTO) 9.6 (2.1-6.9); NEUTROPHILS % 67.5 % (38.7-80.0); PLATELET COUNT 385 x10e3/uL (140-360); RED CELL DISTRIBUTION WIDTH 14.4 % (11.7-14.4)
--- NOTE | 2018-07-20 19:05 | NUR ---
RECEIVED PATIENT AAOX3, RESTING IN BED. FAMILY MEMBER AT BEDSIDE. UPDATED ON PLAN OF CARE. NO NEEDS VOICED AT THIS TIME. BED LOCKED AND IN LOWEST POSITION, CALL LIGHT WITHIN EASY REACH.
[2018-07-20] MEDS: INSULIN GLARGINE 100 UNITS/ML VIAL SQ SCH (21:20)
--- NOTE | 2018-07-20 21:36 | NUR ---
SPOKE WITH DR. SALAZAR REGARDING ELEVATED BP. NO NEW ORDERS RECEIVED.
[2018-07-21 00:35] LABS: BASOPHILS # (AUTO) 0.1 (0.0-0.1); BASOPHILS % 0.4 % (0.0-1.0); EOSINOPHILS # (AUTO) 0.6 (0.0-0.4); EOSINOPHILS % 4.4 % (0.0-6.0); HEMATOCRIT 31.3 % (34.2-44.1); HEMOGLOBIN 10.4 g/dL (12.0-16.0); LYMPHOCYTES # (AUTO) 2.4 (1.0-3.2); LYMPHOCYTES % 17.5 % (18.0-39.1); MEAN CORPUSCULAR HEMOGLOBIN 29.2 pg (28-32); MEAN CORPUSCULAR HGB CONC 33.2 g/dL (31-35); MEAN CORPUSCULAR VOLUME 87.9 fL (81-99); MONOCYTES # (AUTO) 1.5 (0.2-0.8); MONOCYTES % 10.6 % (4.4-11.3); NEUTROPHILS # (AUTO) 9.1 (2.1-6.9); NEUTROPHILS % 66.5 % (38.7-80.0); PLATELET COUNT 378 x10e3/uL (140-360); RED BLOOD COUNT 3.56 x10e6/uL (3.6-5.1); RED CELL DISTRIBUTION WIDTH 14.5 % (11.7-14.4)
[2018-07-21] MEDS: LEVOTHYROXINE SODIUM 100 MCG TAB PO SCH (05:24)
[2018-07-21] MEDS: LEVOTHYROXINE SODIUM 75 MCG TAB PO SCH (05:25)
[2018-07-21 06:13] LABS: BASOPHILS # (AUTO) 0.1 (0.0-0.1); BASOPHILS % 0.6 % (0.0-1.0); EOSINOPHILS # (AUTO) 0.9 (0.0-0.4); EOSINOPHILS % 7.1 % (0.0-6.0); HEMATOCRIT 30.8 % (34.2-44.1); HEMOGLOBIN 9.7 g/dL (12.0-16.0); LYMPHOCYTES # (AUTO) 2.3 (1.0-3.2); MEAN CORPUSCULAR HEMOGLOBIN 28.2 pg (28-32); MEAN CORPUSCULAR HGB CONC 31.5 g/dL (31-35); MEAN CORPUSCULAR VOLUME 89.5 fL (81-99); MONOCYTES # (AUTO) 1.6 (0.2-0.8); MONOCYTES % 12.7 % (4.4-11.3); NEUTROPHILS # (AUTO) 7.7 (2.1-6.9); PLATELET COUNT 346 x10e3/uL (140-360); RED BLOOD COUNT 3.44 x10e6/uL (3.6-5.1); RED CELL DISTRIBUTION WIDTH 14.5 % (11.7-14.4)
[2018-07-21 06:27] LABS: INR 1.02; PROTHROMBIN TIME 13.9 seconds (11.9-14.5)
[2018-07-21 06:32] LABS: ANION GAP 11.1 mmol/L (8-16); BLOOD UREA NITROGEN 16 mg/dL (7-26); BUN/CREATININE RATIO 21 (6-25); CALCIUM 9.3 mg/dL (8.4-10.2); CARBON DIOXIDE 27 mmol/L (22-29); CHLORIDE 104 mmol/L (98-107); CREATININE, SERUM 0.76 mg/dL (0.57-1.11); EST GLOMERULAR FILTRATION RATE > 60 ML/MIN (60-); GLUCOSE 83 mg/dL (74-118); POTASSIUM 4.1 mmol/L (3.5-5.1); SODIUM 138 mmol/L (136-145)
[2018-07-21] MEDS: INSULIN LISPRO 100 UNIT/1 ML 3ML VIAL SQ SCH ×3 (07:30→16:30)
[2018-07-21 08:30] VITALS: BP 148/73
[2018-07-21] MEDS: PANTOPRAZOLE 40 MG 10ML VIAL IV SCH ×2 (09:00→18:03)
[2018-07-21] MEDS: SERTRALINE HCL 50 MG TAB PO SCH (09:00)
[2018-07-21] MEDS: BUPROPION HCL 100 MG TAB PO SCH ×2 (09:00→18:04)
[2018-07-21] MEDS: DILTIAZEM HCL 180 MG CAP ER PO SCH (09:00)
[2018-07-21] MEDS: SITAGLIPTIN 100 MG TAB PO SCH (09:00)
[2018-07-21] MEDS: METOPROLOL SUCCINATE 50 MG TAB XL PO SCH ×2 (09:00→21:30)
[2018-07-21] MEDS: LISINOPRIL 20 MG TAB PO SCH ×2 (09:00→18:04)
[2018-07-21] MEDS: FAMOTIDINE 20 MG TAB PO SCH ×2 (09:00→21:30)
[2018-07-21] MEDS: ALLOPURINOL 100 MG TAB PO SCH ×2 (09:00→18:04)
[2018-07-21] MEDS: SODIUM CHLORIDE 0.9% 1000ML 1,000 ML IV SCH ×2 (10:13→21:34)
[2018-07-21 11:12] LABS: EOSINOPHILS % (MANUAL) 3 % (0-7); HYPOCHROMASIA SLIGHT; LYMPHOCYTES % (MANUAL) 18 % (19-48); MONOCYTES % (MANUAL) 16 % (3.4-9.0); NEUTROPHILS % (MANUAL) 62 % (40-74); PLATELET ESTIMATE ADEQUATE; PLATELET MORPHOLOGY COMMENT NORMAL; RBC MORPHOLOGY COMMENT NORMAL
[2018-07-21 12:36] LABS: BASOPHILS # (AUTO) 0.1 (0.0-0.1); BASOPHILS % 0.4 % (0.0-1.0); EOSINOPHILS # (AUTO) 0.7 (0.0-0.4); HEMATOCRIT 30.1 % (34.2-44.1); HEMOGLOBIN 9.9 g/dL (12.0-16.0); LYMPHOCYTES # (AUTO) 2.1 (1.0-3.2); LYMPHOCYTES % 17.6 % (18.0-39.1); MEAN CORPUSCULAR HEMOGLOBIN 29.1 pg (28-32); MEAN CORPUSCULAR HGB CONC 32.9 g/dL (31-35); MEAN CORPUSCULAR VOLUME 88.5 fL (81-99); MONOCYTES # (AUTO) 1.4 (0.2-0.8); MONOCYTES % 12.2 % (4.4-11.3); NEUTROPHILS # (AUTO) 7.5 (2.1-6.9); PLATELET COUNT 385 x10e3/uL (140-360); RED CELL DISTRIBUTION WIDTH 14.6 % (11.7-14.4)
[2018-07-21 12:43] VITALS: BP 150/71
--- NOTE | 2018-07-21 14:15 | NUR ---
Taken for procedure. No s/s of acute distress noted
[2018-07-21 16:30] VITALS: BP 133/96
--- NOTE | 2018-07-21 16:33 | NUR ---
Back from procedure. No s/s of acute distress noted. States " I am hungry" Paged for diet orders
[2018-07-21 16:45] VITALS: BP 158/75
--- NOTE | 2018-07-21 17:08 | NUR ---
Repaged for diet orders. Awaiting for call back
[2018-07-21] MEDS ORDERED: LIDOCAINE HCL 2% LOCAL INJ 5 ML SDV VIAL INJ ONE (17:23)
[2018-07-21] MEDS ORDERED: PROPOFOL IV EMULSION 10 MG/ML 20 ML VIAL ONE (17:23)
[2018-07-21] MEDS: CEFTRIAXONE SOD 1 GM/NS 50 ML 50 ML IV SCH (18:03)
[2018-07-21 18:31] LABS: BASOPHILS # (AUTO) 0.1 (0.0-0.1); BASOPHILS % 0.4 % (0.0-1.0); EOSINOPHILS # (AUTO) 0.5 (0.0-0.4); EOSINOPHILS % 4.1 % (0.0-6.0); HEMATOCRIT 30.7 % (34.2-44.1); HEMOGLOBIN 10.1 g/dL (12.0-16.0); LYMPHOCYTES # (AUTO) 2.2 (1.0-3.2); LYMPHOCYTES % 17.8 % (18.0-39.1); MEAN CORPUSCULAR HEMOGLOBIN 29.2 pg (28-32); MEAN CORPUSCULAR HGB CONC 32.9 g/dL (31-35); MEAN CORPUSCULAR VOLUME 88.7 fL (81-99); MONOCYTES # (AUTO) 1.3 (0.2-0.8); MONOCYTES % 10.3 % (4.4-11.3); NEUTROPHILS # (AUTO) 8.3 (2.1-6.9); NEUTROPHILS % 66.8 % (38.7-80.0); PLATELET COUNT 409 x10e3/uL (140-360); RED BLOOD COUNT 3.46 x10e6/uL (3.6-5.1); RED CELL DISTRIBUTION WIDTH 14.5 % (11.7-14.4)
--- NOTE | 2018-07-21 19:18 | NUR ---
Report given to oncoming nurse of patient's status. No s/s of acute distress noted.
--- NOTE | 2018-07-21 19:37 | NUR ---
RECEIVED PATIENT AAOX3, STABLE CONDITION, UP IN RECLINER. FAMILY MEMBERS AT BEDSIDE. NO NEEDS VOICED AT THIS TIME. CALL LIGHT WITHIN REACH.
[2018-07-21 20:00] VITALS: BP 185/73
[2018-07-21 20:20] VITALS: BP 185/73
[2018-07-21] MEDS: INSULIN GLARGINE 100 UNITS/ML VIAL SQ SCH (21:30)
[2018-07-22] VITALS (8 sets, daily range): BP systolic 144–196; BP diastolic 59–86
[2018-07-22 05:41] LABS: BASOPHILS # (AUTO) 0.1 (0.0-0.1); BASOPHILS % 0.4 % (0.0-1.0); EOSINOPHILS # (AUTO) 0.6 (0.0-0.4); EOSINOPHILS % 5.1 % (0.0-6.0); HEMATOCRIT 29.1 % (34.2-44.1); HEMOGLOBIN 9.5 g/dL (12.0-16.0); LYMPHOCYTES # (AUTO) 1.8 (1.0-3.2); MEAN CORPUSCULAR HEMOGLOBIN 29.1 pg (28-32); MEAN CORPUSCULAR HGB CONC 32.6 g/dL (31-35); MONOCYTES # (AUTO) 1.3 (0.2-0.8); MONOCYTES % 11.5 % (4.4-11.3); NEUTROPHILS # (AUTO) 7.6 (2.1-6.9); NEUTROPHILS % 66.1 % (38.7-80.0); PLATELET COUNT 361 x10e3/uL (140-360); RED BLOOD COUNT 3.27 x10e6/uL (3.6-5.1); RED CELL DISTRIBUTION WIDTH 14.4 % (11.7-14.4)
--- NOTE | 2018-07-22 05:48 | NUR ---
SPOKE WITH DR. SALAZAR REGARDING ELEVATED BP, ORDERS TO GIVE 0900 DOSE OF LISINOPRIL NOW.
[2018-07-22 05:55] LABS: BLOOD UREA NITROGEN 12 mg/dL (7-26); BUN/CREATININE RATIO 17 (6-25); CARBON DIOXIDE 26 mmol/L (22-29); CHLORIDE 107 mmol/L (98-107); CREATININE, SERUM 0.72 mg/dL (0.57-1.11); EST GLOMERULAR FILTRATION RATE > 60 ML/MIN (60-); GLUCOSE 94 mg/dL (74-118); SODIUM 139 mmol/L (136-145)
[2018-07-22] MEDS: LEVOTHYROXINE SODIUM 75 MCG TAB PO SCH (06:06)
[2018-07-22] MEDS: LISINOPRIL 20 MG TAB PO SCH ×3 (06:06→17:21)
[2018-07-22] MEDS: LEVOTHYROXINE SODIUM 100 MCG TAB PO SCH (06:06)
--- NOTE | 2018-07-22 07:10 | NUR ---
PT ASLEEP RESP EVEN AND UNLABORED, PT EASILY AROUSED AT THIS TIME TO NAME, NO DISTRESS NOTED PT ABLE TO MAKE NEEDS KNOWN, CALL LIGHT IN REACH.
--- NOTE | 2018-07-22 07:14 | NUR ---
REPORT GIVEN TO ONCOMING NURSE, PATIENT IN STABLE CONDITION.
[2018-07-22] MEDS: INSULIN LISPRO 100 UNIT/1 ML 3ML VIAL SQ SCH ×3 (07:30→16:48)
[2018-07-22] MEDS ORDERED: LISINOPRIL 20 MG TAB PO NR (09:00)
[2018-07-22] MEDS: BUPROPION HCL 100 MG TAB PO SCH ×2 (09:00→17:21)
[2018-07-22] MEDS: ALLOPURINOL 100 MG TAB PO SCH ×2 (09:00→17:21)
[2018-07-22] MEDS: SITAGLIPTIN 100 MG TAB PO SCH (09:00)
[2018-07-22] MEDS: DILTIAZEM HCL 180 MG CAP ER PO SCH (09:00)
[2018-07-22] MEDS: PANTOPRAZOLE 40 MG 10ML VIAL IV SCH ×2 (09:00→17:21)
[2018-07-22] MEDS ORDERED: SODIUM CHLORIDE FLUSH 10 ML SYR INJ PRN (09:00)
[2018-07-22] MEDS: METOPROLOL SUCCINATE 50 MG TAB XL PO SCH ×2 (09:00→21:18)
[2018-07-22] MEDS: SERTRALINE HCL 50 MG TAB PO SCH (09:00)
[2018-07-22] MEDS: FAMOTIDINE 20 MG TAB PO SCH ×2 (10:15→21:18)
[2018-07-22] MEDS: SODIUM CHLORIDE 0.9% 1000ML 1,000 ML IV SCH (10:54)
[2018-07-22] MEDS: CEFTRIAXONE SOD 1 GM/NS 50 ML 50 ML IV SCH (17:21)
--- NOTE | 2018-07-22 19:30 | NUR ---
WALKING ROUNDS PERFORMED, RECEIVED PT SITTING IN RECLINER, PT IS AAOX3, RR EVEN AND NON-LABORED, ON RA. NO S/SX OF DISTRESS NOTED. LEFT PT SITTING IN RECLINER WITH CALL LIGHT AND PHONE WITHIN REACH.
--- NOTE | 2018-07-22 19:38 | NUR ---
report given to oncoming nurse for continued care.
[2018-07-22] MEDS: INSULIN GLARGINE 100 UNITS/ML VIAL SQ SCH (21:18)
[2018-07-23] VITALS: BP 139/65
[2018-07-23 04:00] VITALS: BP 191/78
[2018-07-23] MEDS: LEVOTHYROXINE SODIUM 75 MCG TAB PO SCH (06:01)
[2018-07-23] MEDS: LEVOTHYROXINE SODIUM 100 MCG TAB PO SCH (06:01)
[2018-07-23 06:18] LABS: BASOPHILS # (AUTO) 0.1 (0.0-0.1); BASOPHILS % 0.7 % (0.0-1.0); EOSINOPHILS # (AUTO) 0.6 (0.0-0.4); HEMATOCRIT 27.7 % (34.2-44.1); HEMOGLOBIN 9.2 g/dL (12.0-16.0); LYMPHOCYTES # (AUTO) 2.4 (1.0-3.2); MEAN CORPUSCULAR HEMOGLOBIN 29.1 pg (28-32); MEAN CORPUSCULAR HGB CONC 33.2 g/dL (31-35); MEAN CORPUSCULAR VOLUME 87.7 fL (81-99); MONOCYTES # (AUTO) 1.4 (0.2-0.8); MONOCYTES % 11.9 % (4.4-11.3); NEUTROPHILS # (AUTO) 7.2 (2.1-6.9); NEUTROPHILS % 61.6 % (38.7-80.0); PLATELET COUNT 360 x10e3/uL (140-360); RED BLOOD COUNT 3.16 x10e6/uL (3.6-5.1); RED CELL DISTRIBUTION WIDTH 14.2 % (11.7-14.4)
--- NOTE | 2018-07-23 07:12 | NUR ---
pt awake resp even and unlabored at this time no distress noted, pt easily aroused, call light in reach, will cont to monitor.
[2018-07-23] MEDS: INSULIN LISPRO 100 UNIT/1 ML 3ML VIAL SQ SCH ×2 (07:30→11:30)
[2018-07-23 08:19] VITALS: BP 185/79
[2018-07-23] MEDS: SITAGLIPTIN 100 MG TAB PO SCH (08:36)
[2018-07-23] MEDS: PANTOPRAZOLE 40 MG 10ML VIAL IV SCH (08:36)
[2018-07-23] MEDS: ALLOPURINOL 100 MG TAB PO SCH (08:37)
[2018-07-23] MEDS: BUPROPION HCL 100 MG TAB PO SCH (08:37)
[2018-07-23] MEDS: SERTRALINE HCL 50 MG TAB PO SCH (08:37)
[2018-07-23] MEDS: LISINOPRIL 20 MG TAB PO SCH (08:45)
[2018-07-23] MEDS: METOPROLOL SUCCINATE 50 MG TAB XL PO SCH (08:45)
[2018-07-23] MEDS: DILTIAZEM HCL 180 MG CAP ER PO SCH (08:45)
[2018-07-23] MEDS: FAMOTIDINE 20 MG TAB PO SCH (08:45)
[2018-07-23 09:05] VITALS: BP 185/79
--- NOTE | 2018-07-23 14:36 | NUR ---
pt discharge home without prescription, pt was asked to follow up with him in 3 days, Cardiology, Dr. Herrera, and pt iv site removed at this time, no swelling no redness to site.
--- NOTE | 2018-07-24 09:24 | Discharge Summary ---
DISCHARGE DIAGNOSES: 1. Anemia from acute blood loss. 2. Diverticular GI bleeding, now resolved. 3. Colon polyps. 4. Hypertension, controlled. 5. Type 2 diabetes mellitus. HOSPITAL COURSE: Ms. Smiley is a pleasant 83-year-old lady well known to me from the office on prior hospital admissions. She underwent a recent ablation procedure for atrial fibrillation. She has remained on chronic warfarin due to left atrial thrombus. She has history of prior gastrointestinal bleeding. Last weekend, the patient noted extreme fatigue and weakness. Apparently, had some dark stool. She was seen by her public health informatician Dr. Herrera, who gave her outpatient blood transfusion and was referred to the emergency department. At the time of presentation to the emergency department, her hemoglobin level was 7.2. She was relatively asymptomatic with the exception of her weakness. She was admitted to the hospital. She was given 3 units of packed red blood cells and to revert the warfarin anticoagulation, she received 2 units of FFP. Consultation was requested with Gastroenterology. She was scheduled for EGD, which was performed. There were findings of a hiatal hernia and gastritis. No obvious site of bleeding. The next day, she had a colonoscopy with findings of multiple polyps. Those were removed and also the presence of diverticulosis, but again no obvious source of bleeding. The patient's hemoglobin levels have remained stable and at the time of discharge, hemoglobin is 9.2. There are no further signs of bleeding. The patient is being discharged home in stable conditions. She is asked to continue to hold her warfarin pending decision to restart by Cardiology. She is to follow up with Gastroenterology in two weeks. She is to follow up with Dr. Herrera. She is also asked to follow up in the office for followup H and H in 3 day's time. MD SEVERIANO Cast/COSME /[id number]
== END 2018-07-23 14:00 | disposition home or self-care (01) | DRG 378 ==
LOC: ER 16:16 → ERHOLD 18:08 → MED/SURG 20:22
PROVIDERS: ADMIT Internal Medicine; ATTEND Internal Medicine
PROC: 30233L1 Transfusion of Nonautologous Fresh Plasma into Peripheral Vein, Percutaneous Approach (ICD-10-PCS; 2018-07-18)
PROC: 30233K1 Transfusion of Nonautologous Frozen Plasma into Peripheral Vein, Percutaneous Approach (ICD-10-PCS; 2018-07-18)
PROC: 30233N1 Transfusion of Nonautologous Red Blood Cells into Peripheral Vein, Percutaneous Approach (ICD-10-PCS; 2018-07-19)
PROC: 0DB68ZX Excision of Stomach, Via Natural or Artificial Opening Endoscopic, Diagnostic (ICD-10-PCS; 2018-07-20)
PROC: 0DBK8ZX Excision of Ascending Colon, Via Natural or Artificial Opening Endoscopic, Diagnostic (ICD-10-PCS; principal; 2018-07-21 14:30)
PROC: 0DBH8ZX Excision of Cecum, Via Natural or Artificial Opening Endoscopic, Diagnostic (ICD-10-PCS; 2018-07-21 14:30)
DX: K57.31 Diverticulosis of large intestine without perforation or abscess with bleeding (principal); D62 Acute posthemorrhagic anemia; N39.0 Urinary tract infection, site not specified; R53.1 Weakness; I48.2 Chronic atrial fibrillation; Z79.01 Long term (current) use of anticoagulants; Z88.5 Allergy status to narcotic agent; I10 Essential (primary) hypertension; K55.20 Angiodysplasia of colon without hemorrhage; E11.65 Type 2 diabetes mellitus with hyperglycemia; K63.5 Polyp of colon; E88.09 Other disorders of plasma-protein metabolism, not elsewhere classified; E03.9 Hypothyroidism, unspecified; E78.5 Hyperlipidemia, unspecified; K64.8 Other hemorrhoids; K29.70 Gastritis, unspecified, without bleeding; K44.9 Diaphragmatic hernia without obstruction or gangrene; Z79.4 Long term (current) use of insulin
CPT/HCPCS: 36415; 43239; 45384; 45385; 71045; 80048; 80053; 81001; 82550; 82553; 82948; 83880; 84484; 85025; 85610; 85730; 86850; 86900; 86920; 87086; 87186; 88305; 88312; 93005; 99284; J0696; J1815; J1940; J2001; J3430; J7030; J7050; P9016; P9017

== ENCOUNTER 2023-09-02 19:06 | Observation (INO) | payer MEDICARE, OTHER ==
[~2023-09-02] VITALS: Ht 167.6 cm; Wt 74.4 kg
[~2023-09-02 19:06] MED LIST changes: +COUMADIN3 MG PO; +DILTIAZEM HCL60 MG PO; +FAMOTIDINE20 MG PO; +LISINOPRIL20 MG PO; +NOVOLOG100 UNITS1 SC; +TORSEMIDE10 MG PO; +TRESIBA SC; +VITAMIN D400 UNIT PO
[2023-09-02 20:31] LABS: BASOPHILS # (AUTO) 0.1 (0.0-0.1); BASOPHILS % 0.6 % (0.0-1.0); EOSINOPHILS # (AUTO) 0.5 (0.0-0.4); EOSINOPHILS % 4.5 % (0.0-6.0); HEMATOCRIT 26.4 % (34.2-44.1); HEMOGLOBIN 7.9 g/dL (12.0-16.0); LYMPHOCYTES # (AUTO) 2.9 (1.0-3.2); MEAN CORPUSCULAR HGB CONC 29.9 g/dL (31-35); MEAN CORPUSCULAR VOLUME 93.6 fL (81-99); MONOCYTES # (AUTO) 1.5 (0.2-0.8); NEUTROPHILS # (AUTO) 6.3 (2.1-6.9); NEUTROPHILS % 55.6 % (38.7-80.0); PLATELET COUNT 373 x10e3/uL (140-360); RED BLOOD COUNT 2.82 x10e6/uL (3.6-5.1); RED CELL DISTRIBUTION WIDTH 13.6 % (11.7-14.4); WHITE BLOOD COUNT 11.26 x10e3/uL (4.8-10.8)
[2023-09-02 20:46] LABS: ALBUMIN 3.2 g/dL (3.5-5.0); ALBUMIN/GLOBULIN RATIO 0.9 (0.8-2.0); ANION GAP 18.7 mmol/L (8-16); BILIRUBIN,TOTAL 0.1 mg/dL (0.2-1.2); CREATININE, SERUM 1.06 mg/dL (0.57-1.11); POTASSIUM 4.7 mmol/L (3.5-5.1); TOTAL PROTEIN 6.7 g/dL (6.5-8.1)
[2023-09-02 20:53] VITALS: PULSE 63; RESP 19
[2023-09-02] MEDS ORDERED: SODIUM CHLORIDE FLUSH 10 ML SYR INJ PRN (22:45)
[2023-09-02 23:10] VITALS: PULSE 66; RESP 20; O2SAT 100
[2023-09-02] MEDS: METOPROLOL SUCCINATE 50 MG TAB XL PO ONE (23:24)
[2023-09-03] VITALS (9 sets, daily range): BP systolic 123–177; BP diastolic 49–84; PULSE 60–70; RESP 18–20; TEMP 97.7–98.4; O2SAT 94–100
[2023-09-03] MEDS: ACETAMINOPHEN 325 MG TAB PO STA (01:26)
[2023-09-03] MEDS: LOSARTAN POTASSIUM 100 MG TAB PO ONE (02:10)
[2023-09-03] MEDS: SODIUM CHLORIDE 0.9% 250ML 250 ML IV ONE (02:14)
[2023-09-03] MEDS: SODIUM CHLORIDE 0.9% 250ML 250 ML ONE (06:38)
[2023-09-03] MEDS ORDERED: MECLIZINE HCL 12.5 MG TAB PO PRN (15:45)
[2023-09-03 15:52] LABS: BASOPHILS # (AUTO) 0.1 (0.0-0.1); BASOPHILS % 0.6 % (0.0-1.0); EOSINOPHILS # (AUTO) 0.5 (0.0-0.4); EOSINOPHILS % 4.5 % (0.0-6.0); HEMATOCRIT 30.8 % (34.2-44.1); HEMOGLOBIN 9.7 g/dL (12.0-16.0); LYMPHOCYTES # (AUTO) 2.5 (1.0-3.2); LYMPHOCYTES % 22.6 % (18.0-39.1); MEAN CORPUSCULAR HEMOGLOBIN 28.8 pg (28-32); MEAN CORPUSCULAR HGB CONC 31.5 g/dL (31-35); MEAN CORPUSCULAR VOLUME 91.4 fL (81-99); MONOCYTES # (AUTO) 1.1 (0.2-0.8); MONOCYTES % 10.2 % (4.4-11.3); NEUTROPHILS # (AUTO) 6.7 (2.1-6.9); NEUTROPHILS % 61.7 % (38.7-80.0); PLATELET COUNT 331 x10e3/uL (140-360); RED BLOOD COUNT 3.37 x10e6/uL (3.6-5.1); WHITE BLOOD COUNT 10.85 x10e3/uL (4.8-10.8)
[2023-09-03] MEDS ORDERED: INSULIN LISPRO 100 UNIT/1 ML 3ML VIAL SQ SCH (16:30)
[2023-09-03] MEDS ORDERED: METOPROLOL SUCCINATE 50 MG TAB XL PO SCH (17:00)
[2023-09-03] MEDS ORDERED: BUPROPION HCL 100 MG TAB PO SCH (17:00)
[2023-09-03] MEDS ORDERED: ALLOPURINOL 100 MG TAB PO SCH (17:00)
[2023-09-03] MEDS ORDERED: LISINOPRIL 20 MG TAB PO SCH (17:00)
[2023-09-03] MEDS ORDERED: FAMOTIDINE 20 MG TAB PO SCH (21:00)
[2023-09-03] MEDS ORDERED: PRAVASTATIN 20 MG TAB PO SCH (21:00)
[2023-09-04] MEDS ORDERED: LEVOTHYROXINE SODIUM 75 MCG TAB PO SCH (03:00)
[2023-09-04] MEDS ORDERED: INSULIN LISPRO 100 UNIT/1 ML 3ML VIAL SQ SCH ×2 (07:30→11:30)
[2023-09-04] MEDS ORDERED: TORSEMIDE 10 MG TAB PO SCH (09:00)
[2023-09-04] MEDS ORDERED: SERTRALINE HCL 50 MG TAB PO SCH (09:00)
[2023-09-04] MEDS ORDERED: SITAGLIPTIN 100 MG TAB PO SCH (09:00)
[2023-09-04] MEDS ORDERED: DILTIAZEM HCL 180 MG CAP ER PO SCH (09:00)
== END 2023-09-03 16:18 | disposition home or self-care (01) ==
LOC: ER 19:10 → ERHOLD 22:40 → MED/SURG3 23:50
PROVIDERS: ADMIT Internal Medicine; ATTEND Internal Medicine
DX: D50.9 Iron deficiency anemia, unspecified (principal); E11.65 Type 2 diabetes mellitus with hyperglycemia; Z79.4 Long term (current) use of insulin; Z79.84 Long term (current) use of oral hypoglycemic drugs; I10 Essential (primary) hypertension; E78.5 Hyperlipidemia, unspecified; I48.0 Paroxysmal atrial fibrillation; E03.9 Hypothyroidism, unspecified; K21.9 Gastro-esophageal reflux disease without esophagitis; F41.9 Anxiety disorder, unspecified; Z11.52 Encounter for screening for COVID-19; Z79.899 Other long term (current) drug therapy; F32.A Depression, unspecified
CPT/HCPCS: 36415 ×2; 36430; 80053; 82948; 85025 ×2; 86850; 86900; 86920; 94799; 99284; G0378 ×2; J7050; P9016; U0002

== ENCOUNTER 2023-10-12 10:06 | Emergency (ER) | payer MEDICARE, OTHER ==
[~2023-10-12] VITALS: Ht 167.6 cm; Wt 74.4 kg
[2023-10-12 10:20] VITALS: TEMP 98.2
[2023-10-12 11:08] VITALS: PULSE 62; RESP 14; O2SAT 94
== END 2023-10-12 12:02 | disposition home or self-care (01) ==
LOC: ER 10:14
DX: S06.0X0A Concussion without loss of consciousness, initial encounter (principal); W22.09XA Striking against other stationary object, initial encounter; Y92.89 Other specified places as the place of occurrence of the external cause; I10 Essential (primary) hypertension; E11.9 Type 2 diabetes mellitus without complications; I48.91 Unspecified atrial fibrillation; E03.9 Hypothyroidism, unspecified; D64.9 Anemia, unspecified; E78.5 Hyperlipidemia, unspecified; H35.30 Unspecified macular degeneration; F41.9 Anxiety disorder, unspecified; F32.A Depression, unspecified; K21.9 Gastro-esophageal reflux disease without esophagitis
CPT/HCPCS: 70450; 72125; 99283

== ENCOUNTER 2023-10-18 15:17 | Emergency (ER) | payer MEDICARE, OTHER ==
[~2023-10-18] VITALS: Ht 167.6 cm; Wt 74.4 kg
[2023-10-18 15:30] VITALS: TEMP 97.8
[2023-10-18 19:03] LABS: BASOPHILS % 0.4 % (0.0-1.0); HEMATOCRIT 35.5 % (34.2-44.1); LYMPHOCYTES % 12.7 % (18.0-39.1); MEAN CORPUSCULAR HEMOGLOBIN 28.4 pg (28-32); MEAN CORPUSCULAR VOLUME 91.5 fL (81-99); MONOCYTES # (AUTO) 0.1 (0.2-0.8); MONOCYTES % 1.3 % (4.4-11.3); NEUTROPHILS # (AUTO) 6.4 (2.1-6.9); NEUTROPHILS % 85.1 % (38.7-80.0); PLATELET COUNT 319 x10e3/uL (140-360); RED BLOOD COUNT 3.88 x10e6/uL (3.6-5.1); RED CELL DISTRIBUTION WIDTH 16.4 % (11.7-14.4); WHITE BLOOD COUNT 7.56 x10e3/uL (4.8-10.8)
[2023-10-18 19:11] LABS: INR 0.97; PROTHROMBIN TIME 13.4 seconds (11.9-14.5)
[2023-10-18] MEDS: ONDANSETRON HCL INJ 2MG/ML 2ML 2 MG/ML VIAL IV ONE (19:21)
[2023-10-18 19:22] LABS: ANION GAP 14.1 mmol/L (8-16); CALCIUM 9.7 mg/dL (8.4-10.2); CREATININE, SERUM 1.03 mg/dL (0.57-1.11); POTASSIUM 5.1 mmol/L (3.5-5.1)
[2023-10-18] MEDS: Morphine 4mg INJECTION 4 MG/ML INJ IV ONE (19:22)
[2023-10-18 21:30] VITALS: PULSE 78; RESP 16
[2023-10-18 21:53] VITALS: BP 164/88; PULSE 78; RESP 16; O2SAT 96
== END 2023-10-18 21:49 | disposition other institution (70) ==
LOC: ER 15:20
DX: S72.112A Displaced fracture of greater trochanter of left femur, initial encounter for closed fracture (principal); W18.39XA Other fall on same level, initial encounter; Y92.89 Other specified places as the place of occurrence of the external cause; I10 Essential (primary) hypertension; E11.65 Type 2 diabetes mellitus with hyperglycemia; E78.5 Hyperlipidemia, unspecified; I48.91 Unspecified atrial fibrillation; E03.9 Hypothyroidism, unspecified; D64.9 Anemia, unspecified; K21.9 Gastro-esophageal reflux disease without esophagitis; F41.9 Anxiety disorder, unspecified
CPT/HCPCS: 36415; 51700; 72192; 73502; 73562; 80048; 85025; 85610; 85730; 99284; J2270; J2405